=== PATIENT | female | born 1960 | race American Indian/Alaskan Native ===

== ENCOUNTER 2021-02-09 11:20 | Emergency (ER) | payer MEDICARE, MEDICAID, SELFPAY ==
--- NOTE | ~2021-02-09 | XR_ITS ---
EXAMINATION: XR LUMBOSACRAL SPINE CLINICAL INFORMATION: Low back pain status post fall COMPARISON: None TECHNIQUE: Three views of the lumbosacral spine. FINDINGS: The vertebral bodies and posterior elements are unremarkable. The disc spaces are preserved and the vertebral alignment is normal. The paraspinal soft tissues are normal. XR/XR lumbar spine 2-3V IMPRESSION: No evidence of an acute traumatic injury
[2021-02-09 12:24] VITALS: BP 195/100; PULSE 74; RESP 20; TEMP 37.2; O2SAT 98; BMI 30.2
--- NOTE | 2021-02-09 18:52 | ED.BACK ---
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 Patient reports that she came from [place] in beginning December in she ran out of her medications that she takes for her chronic back pain. Patient reports that she had slipped down the stairs about month ago. Denies any urinary or fecal incontinence. Denies any neurological symptoms. Patient reports that she called to make an appointment with PCP and is awaiting for her appointment. Patient takes tramadol 50 mg 3 times a day and Xanax 2 mg daily. Medications were verified with her. Patient brought her empty bottles. MD elicited complaint: back pain Pertinent past history: prior back pain ( for the last 20 years) Onset (ago): year(s) ( over 20 years ago) Timing: intermittent Severity: moderate Related Data Previous Rx's Medication Instructions Recorded cyclobenzaprine 7.5 mg tablet 7.5 mg PO BEDTIME #7 tab 02/09/21 diazepam 2 mg tablet (Valium) 2 mg PO DAILY PRN #7 tab 02/09/21 tramadol 50 mg tablet 50 mg PO DAILY #14 tab 02/09/21 Allergies Allergy/AdvReac Type Severity Reaction Status Date / Time No Known Allergies Allergy Verified 02/09/21 12:30 Review of Systems Review of Systems: Constitutional : No Weight loss, No Fever, No Chills, No Night Sweats, No Fatigue, No Malaise ENT/Mouth : No Hearing loss, No Ear Pain, No Nasal Congestion, No Sinus Pain, No Hoarseness, No sore throat, No Rhinorrhea, No Swallowing Difficulty Eyes: No Eye Pain, No Swelling, No Redness, No Foreign Body, No Discharge, No Vision Changes Cardiovascular : No Chest Pain, No SOB, No Dyspnea on Exertion, No Orthopnea, No Edema, No Palpitations Respiratory : No Cough, No Sputum, No Wheezing, No Smoke Exposure, No Dyspnea Gastrointestinal : No Nausea, No Vomiting, No Diarrhea, No Constipation, No abdominal Pain, No Hematochezia, No Melena Genitourinary : no irregular bleeding, No Dysuria, No Urinary Frequency, No Hematuria, No Urinary Incontinence, No Urgency, No Flank Pain, No Urinary Flow Changes, No Hesitancy Musculoskeletal : No joint pain, back pain, No Myalgias, No Joint Swelling Skin : No Skin Lesions, No rash Neuro : No Weakness, No Numbness, No Paresthesias, No Loss of Consciousness, No Dizziness, No Headache Psych : No Anxiety/Panic, No Depression, No SI/HI/AH/VH, No Social Issues, Yes all other systems are reviewed and are negative PMFSH Past Medical History Medical History (Updated 02/09/21 @ 20:11 by Jana Viveros, [facility]) Angina pectoris Anxiety Back pain High cholesterol HTN (hypertension) Social History Social History Advance Directives: No Advance Directives Information Provided: Yes Patient : No Physical Exam Vital Signs: Vital Signs: Last Vital Signs Temp 98.4 F 02/09/21 20:12 Pulse 72 02/09/21 20:12 Resp 16 02/09/21 20:12 BP 165/83 H 02/09/21 20:12 Pulse Ox 98 02/09/21 20:12 BMI result Body Mass Index 30.2 Const: General: healthy appearing, no acute distress and well developed Nutritional Appearance: well nourished Orientation/consciousness: patient oriented x3 HENMT: Head: Yes normal to inspection, Yes normocephalic and Yes atraumatic Face and sinus: Yes normal facial exam Mouth: Normal oral and palatal mucosa present Throat: Yes posterior oropharynx normal, Yes tonsils normal and Yes uvula midline Eyes: General: appearance normal, both eyes and all related structures Neck: Neck: Yes normal visual inspection, Yes full ROM and Yes trachea midline Thyroid: Thyroid normal Resp: Effort & Inspection: normal respiratory effort, able to speak in complete sentences, no tracheal deviation and symmetric chest movement Auscultation: clear to auscultation bilaterally Cardio: Jugular venous distension: no JVD Rate: regular rate Heart sounds: S1 normal heart sound present, S2 normal heart sound present, no gallops and no murmurs GI: Inspection: Yes normal to inspection and No distended Palpation (GI): Soft to palpation, not firm, nontender and No hepatosplenomegaly present Auscultation: normal bowel sounds : General: Yes no CVA tenderness Back/Spine/Pelvis: Back: no CVA tenderness Cervical Spine: normal cervical lordosis Thoracic/Lumbar Spine: thoracic and lumbar spine normal to inspection Pelvis: sciatic notch tenderness Sacroiliac joints: bilaterally Skin: General skin exam: elasticity normal, turgor normal and dry skin Neuro: General: patient oriented x3 Psych: Appearance: grossly normal Mental Status: mental status grossly normal Speech and movement: Normal speech and movement present Affect: normal affect Attitude: cooperative Thought process: Normal thought process present Thought content: Normal thought content present Insight: Good insight present (Psych) Judgement: Good judgement present (Psych) Course Course Course Narrative: 60-year-old female with past medical history of hyperlipidemia, hypertension, severe anxiety, chronic back pain for 20 years. Recent fall over a month ago with no worsening pain, however patient is taking large amount of medication till just yesterday when she ran out. Unable to get an appointment with her PCP. Patient is taking tramadol 50 mg 3 times a day and Xanax 2 mg daily. Patient reports she has also severe anxiety has try to wean herself off of Xanax with and was unable to. Patient just moved here from [place] in beginning of December. Patient denies any urinary or fecal incontinence. No paresthesia. Positive tenderness to SI joint areas. Will do x-ray of lumbar and spine. Will give her tramadol. discussed with patient that the dose of Xanax is too high and I will not going to be given her script for that. However I will be happy to give her script for Valium. Patient is agreeable she states that she took Valium in the past. Reevaluation(s) Reevaluation #1: patient reports that she is feeling better after taking tramadol. x-ray without any acute finding. I will send patient home with script for Valium, cyclobenzaprine and tramadol. Patient is agreeable to this plan MDM - Back Pain/Injury Imaging Data lumbar and spinal x-ray: Attestation: I personally reviewed and interpreted this imaging study as follows: Radiologist's impression: FINDINGS: The vertebral bodies and posterior elements are unremarkable. The disc spaces are preserved and the vertebral alignment is normal. The paraspinal soft tissues are normal. XR/XR lumbar spine 2-3V IMPRESSION: No evidence of an acute traumatic injury Discharge Plan Discharge Clinical Impression: Strain of lumbar region Qualifiers: Encounter type: initial encounter Qualified Code(s): S39.012A - Strain of muscle, fascia and tendon of lower back, initial encounter Sciatica Qualifiers: Laterality: bilateral Qualified Code(s): M54.31 - Sciatica, right side Chronic back pain Qualifiers: Back pain location: low back pain Back pain laterality: bilateral Sciatica presence: unspecified whether sciatica present Qualified Code(s): M54.50 - Low back pain, unspecified Patient Disposition: Home, Self-Care Instructions: Chronic Pain (ED), Chronic Back Pain (DC) Additional Instructions: Usted fue visto aqu? hoy por dolor lumbar. Tus s?ntomas son cr?nicos. Te quedaste sin tus medicamentos. No se puede completar el script para Xanax, sin embargo, le daremos el script para Valium. [place] Valium 2 mg seg?n sea necesario por la ma?cholo. Puede irma ciclobenzaprina, que es un relajante muscular todas las noches, seg?n sea necesario. Le enviar? un roopa?n para tramadol, puede tomarlo al mediod?a seg?n sea necesario. Mili un seguimiento con nath proveedor de atenci?n primaria. Es posible que necesite fisioterapia. Puede hacer un seguimiento con [facility] [phone] Prescriptions: New diazepam [Valium] 2 mg tablet 2 mg PO DAILY PRN (Reason: anxiety) Qty: 7 RF: 0 tramadol 50 mg tablet 50 mg PO DAILY Qty: 14 RF: 0 cyclobenzaprine 7.5 mg tablet 7.5 mg PO BEDTIME Qty: 7 RF: 0 Interventions: ED Discharge Assessment Last Done: 02/09/21 20:02 Discharge Date/Time: 02/09/21 20:17 Print Language: Slovak
[2021-02-09] MEDS: traMADoL HCL 50 MG TABLET PO (19:35)
[2021-02-09 20:12] VITALS: BP 165/83; PULSE 72; RESP 16; TEMP 36.9; O2SAT 98
== END 2021-02-09 20:17 | disposition home or self-care (01) ==
PROVIDERS: Emergency Provider Emergency Medicine Emergency Medical Services
DX: S39.012A Strain of muscle, fascia and tendon of lower back, initial encounter (principal); M54.31 Sciatica, right side; M54.32 Sciatica, left side; I10 Essential (primary) hypertension; Z79.891 Long term (current) use of opiate analgesic; Z79.899 Other long term (current) drug therapy; W10.9XXA Fall (on) (from) unspecified stairs and steps, initial encounter; Y93.9 Activity, unspecified; Y92.9 Unspecified place or not applicable; Y99.9 Unspecified external cause status
CPT/HCPCS: 72100; 99283

== ENCOUNTER 2021-04-19 14:37 | Outpatient (REF) | payer MEDICARE, MEDICAID, SELFPAY ==
--- NOTE | ~2021-04-19 | MR_ITS ---
EXAMINATION: MR LUMBAR SPINE WITHOUT CONTRAST CLINICAL INFORMATION: Low back pain. COMPARISON: Lumbar spine radiographs 02/01/2021. TECHNIQUE: MRI of the lumbar spine was obtained using routine sequences without contrast. FINDINGS: Alignment is normal. Vertebral heights are preserved. No acute bone marrow signal changes. There is disc desiccation at multiple levels without substantial loss of intervertebral disc height. The tip of the conus medullaris is located at T12. No mass effect on the conus. Visualized distal cord signal intensity is normal. At T12-L1 there is a left central extrusion with superior and inferior subligamentous extension of extruded disc centrally causing indentation of the thecal sac. No canal stenosis. No mass effect on the traversing or foraminal nerve roots. At L1-L2 there is a right central extrusion with 0.5 cm superior subligamentous extension of extruded disc material causing indentation of the ventral thecal sac. No canal stenosis. No mass effect on the traversing or foraminal nerve roots. At L2-L3 is a annular contour is normal. No canal or neuroforaminal compromise. At L3-L4 there is a slightly bulging disc. No canal stenosis. No mass effect on the traversing or foraminal nerve roots. At L4-L5 there is a central annular fissure associated with a bulging disc. No canal stenosis. No mass effect on the traversing or foraminal nerve roots. At L5-S1 there is a slightly bulging disc. Bilateral facet degenerative change. No canal stenosis. Partial effacement of perineural fat with no more than mild mass effect on the left L5 foraminal nerve root. Limited visualization of the retroperitoneal anatomy reveals no abnormal finding. Psoas and paraspinal muscle groups are symmetric. MR/MR lumbar spine wo con IMPRESSION: There is disc degeneration at multiple levels within the lumbar spine. There are disc extrusions at T12-L1 and L1-L2 as described above. No canal stenosis. A bulging disc in conjunction with facet degenerative change at L5-S1 causes no more than mild mass effect on the left L5 foraminal nerve root. Otherwise no substantial mass effect on the traversing or foraminal nerve roots elsewhere within the [id number] of this examination.
== END 2021-04-19 14:38 | disposition home or self-care (01) ==
LOC: HO.MRI 14:37
PROVIDERS: PCP Nurse Practitioner Primary Care; Visit Provider Nurse Practitioner Primary Care
DX: M54.50 Low back pain, unspecified (principal); R29.898 Other symptoms and signs involving the musculoskeletal system
CPT/HCPCS: 72148

== ENCOUNTER → 2021-09-15 10:38 | Outpatient (BNVA) | payer MEDICARE, MEDICAID, SELFPAY | PROVIDERS: PCP Nurse Practitioner Primary Care; Referring Provider Nurse Practitioner Primary Care; Visit Provider Nurse Practitioner | DX: K21.9 Gastro-esophageal reflux disease without esophagitis (principal); R10.10 Upper abdominal pain, unspecified | CPT/HCPCS: 99202; 99212 ==

== ENCOUNTER 2021-10-13 14:46 | Outpatient (REF) | payer MEDICARE, MEDICAID, SELFPAY ==
[2021-10-13 15:12] LABS: MANUAL DIFF FLAG NO
[2021-10-13 15:33] LABS: Basophils Absolute Auto 0.1 X10*3/uL (0.0-0.2); Basophils Percent Auto 0.8 % (0-2); Eosinophils Absolute Auto 0.1 X10*3/uL (0.0-0.4); Eosinophils Percent Auto 1.9 % (0-4); Hematocrit 41.4 % (37.0-47.0); Hemoglobin 13.5 g/dl (12.0-16.0); Imm Gran Abs Auto 0.03 X10*3/uL (0.00-0.03); Imm Gran Pct Auto 0.4 % (0.0-0.4); Lymphocytes Absolute Auto 2.5 X10*3/uL (1.2-4.9); Lymphocytes Percent Auto 33.9 % (20-40); Mean Corpuscular HGB Conc 32.6 g/dl (31.0-35.0); Mean Corpuscular Volume 85.9 fL (80.0-98.0); Mean Platelet Volume 12.4 fL (9.4-12.3); Monocytes Absolute Auto 0.6 X10*3/uL (0.1-1.2); Monocytes Percent Auto 7.5 % (2-11); Neutrophils Absolute Auto 4.1 x10*3/uL (2.0-8.3); Neutrophils Percent Auto 55.5 % (45-73); Platelet Count 224 X10*3/uL (160-400); Red Blood Count 4.82 X10*6/uL (4.20-5.50); Red Cell Distribution Width 12.5 % (11.0-16.0); White Blood Count 7.5 X10*3/uL (4.8-10.8)
[2021-10-13 15:58] LABS: Alanine Aminotransferase 35 U/L (0-31); Albumin Level 4.2 g/dL (3.5-5.0); Alkaline Phosphatase 101 U/L (39-117); Anion Gap 15 (12-20); Aspartate Amino Transferase 27 U/L (5-31); Bilirubin Total 0.3 mg/dL (0.0-1.0); Blood Urea Nitrogen 8 mg/dL (9-16); Calcium 9.6 mg/dL (8.4-10.2); Carbon Dioxide 26 mmol/L (22-29); Chloride 105 mmol/L (96-108); Estimated Glomerular Filt Rate > 60; Glucose Random 95 mg/dL (60-115); Potassium 4.2 mmol/L (3.3-5.1); Sodium 142 mmol/L (135-145); Total Protein 7.5 g/dL (6.5-8.0)
== END 2021-10-13 14:47 | disposition home or self-care (01) ==
LOC: HO.LAB 14:46
PROVIDERS: PCP Nurse Practitioner Primary Care; Visit Provider Nurse Practitioner
DX: R10.10 Upper abdominal pain, unspecified (principal); K21.9 Gastro-esophageal reflux disease without esophagitis
CPT/HCPCS: 36415; 80053; 85025; 99212

== ENCOUNTER 2021-10-14 | Outpatient (REF) | payer MEDICARE, MEDICAID, SELFPAY | END 2021-10-14 00:01 | disposition home or self-care (01) | LOC: HO.LNP | PROVIDERS: Visit Provider Nurse Practitioner | DX: R10.10 Upper abdominal pain, unspecified (principal); K21.9 Gastro-esophageal reflux disease without esophagitis | CPT/HCPCS: 87338 ==

== ENCOUNTER → 2021-12-15 15:53 | Outpatient (BNVA) | payer MEDICARE, MEDICAID, SELFPAY | PROVIDERS: PCP Nurse Practitioner Primary Care; Visit Provider Nurse Practitioner | DX: K21.9 Gastro-esophageal reflux disease without esophagitis (principal); R10.10 Upper abdominal pain, unspecified | CPT/HCPCS: 99212 ==

== ENCOUNTER 2022-01-26 08:54 | Outpatient (REF) | payer MEDICARE, MEDICAID, SELFPAY ==
--- NOTE | ~2022-01-26 | XR_ITS ---
EXAMINATION: XR ABDOMEN WITH DECUBITUS VIEWS CLINICAL INDICATION: Gastroesophageal reflux disease without esophagitis. COMPARISON: None. TECHNIQUE: 4 view abdominal series. FINDINGS: The bowel gas pattern is normal with no evidence of ileus or obstruction. No unusual soft tissue calcifications are noted. Psoas margins are intact. No acute fracture or diastases of the pelvis was identified. 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 No significant sacroiliac joint abnormalities appreciated. The hip joint spaces appear maintained. XR/XR abdomen w decubitus IMPRESSION: No evidence of ileus or obstruction. No significant abnormality appreciated.
--- NOTE | ~2022-01-26 | US_ITS ---
EXAMINATION: US ABDOMEN COMPLETE CLINICAL INFORMATION: Upper abdominal pain. COMPARISON: X-ray abdomen same date. TECHNIQUE: Real-time imaging of the abdominal viscera. FINDINGS: PANCREAS: Visualized portions of the pancreas are unremarkable. The pancreatic tail is obscured by bowel gas. Great duct measures 2 mm which is within normal limits of caliber. ABDOMINAL AORTA: The proximal, mid, and distal segments are normal in caliber. INFERIOR VENA CAVA: Visualized portions are normal. LIVER: Liver is mildly enlarged measuring 17.8 cm in span. The liver contour is normal. There is diffuse increased liver parenchymal echogenicity, consistent with hepatic steatosis. No focal hepatic lesion. There is no intrahepatic biliary duct dilatation seen. GALLBLADDER: Normal. The gallbladder is physiologically distended without evidence of stones, sludge, polyps, wall thickening or pericholecystic fluid. COMMON BILE DUCT: Normal in caliber measuring 0.3 cm in diameter. RIGHT KIDNEY: Possible trace caliectasis. No jania hydronephrosis. No renal calculi or focal parenchymal lesions. The kidney measures 11.9 cm in maximum dimension. LEFT KIDNEY: Normal. No hydronephrosis. No renal calculi or focal parenchymal lesions. The kidney measures 11.6 cm in maximum dimension. SPLEEN: Normal. The spleen measures 11.6 cm in maximum dimension. FREE FLUID: None. US/US abdomen complete IMPRESSION: 1. Mild hepatomegaly and hepatic steatosis. 2. Possible trace caliectasis in the right kidney without jania hydronephrosis.
== END 2022-01-26 08:55 | disposition home or self-care (01) ==
LOC: HO.US 08:54
PROVIDERS: Visit Provider Nurse Practitioner
DX: R10.10 Upper abdominal pain, unspecified (principal); K21.9 Gastro-esophageal reflux disease without esophagitis
CPT/HCPCS: 74021; 76700

== ENCOUNTER 2022-03-09 08:08 | Outpatient (REF) | payer MEDICARE, MEDICAID, SELFPAY ==
--- NOTE | ~2022-03-09 | FL_ITS ---
EXAMINATION: FL UPPER GI SERIES AND SMALL BOWEL SERIES CLINICAL INFORMATION: K21.9 - Gastro-esophageal reflux disease without esophagitis. Abdominal pain during meals. COMPARISON: None TECHNIQUE: Upper GI series and small bowel follow-through and are performed using fluoroscopic evaluation in addition to multiple fluoroscopic spot views and overhead images. The patient is imaged both upright and prone and using both thick and thin barium sulfate along with effervescent granules. Barium pill challenge also performed. Fluoroscopy time: 1.7 minutes DAP: 23.587 Gycm2 Fluoroscopic spot images: 23 FINDINGS: Preliminary sped teacher films show no gaseous dilatation of bowel or abnormal collections of gas. The esophagus has no obstruction, stricture, or ulceration. There is small sliding hiatal hernia seen during the prone Valsalva maneuver approximately one thoracic vertebral body in height. No gastroesophageal reflux demonstrated. Barium pill rapidly passed from mouth to stomach without delay. The stomach shows no thickened folds or ulcer crater or outlet obstruction. The duodenal bulb is pliable and without ulcer crater or scarring. The post bulbar duodenum is unremarkable. Contrast is followed through the small bowel and reaches the colon within 60 minutes. There is no small bowel dilatation, angulated or tethered loops, or abnormal thickening of small bowel folds. There are no fixed or rigid segments of small bowel on fluoroscopic exam with compression. The terminal ileum appears normal. FL/FL upper GI small bowel IMPRESSION: -Small sliding hiatal hernia during prone Valsalva maneuver. No gastroesophageal reflux -No ulceration or scarring. -Unremarkable small bowel series.
--- NOTE | ~2022-03-09 | XR_ITS ---
EXAMINATION: XR THORACOLUMBAR SPINE CLINICAL INFORMATION: Gastroesophageal reflux. COMPARISON: CT soft tissues of the neck 07/07/2021. TECHNIQUE: 2 views of the thoracic spine. FINDINGS: No acute compression deformity or subluxation. Small multilevel anterior osteophytes along the included portions of the cervical and thoracic spine with mild disc height loss. Posterior elements appear within normal limits. No significant paraspinal soft tissue abnormality. XR/XR thoracic spine 2V IMPRESSION: 1. No acute compression deformity or subluxation. 2. Mild thoracic spondylosis. Of note, this examination is not ideal for the evaluation of gastroesophageal reflux, for which correlation with upper GI fluoroscopic small bowel series performed on same day and dictated separately is recommended.
== END 2022-03-09 08:09 | disposition home or self-care (01) ==
LOC: HO.XRAY 08:08
PROVIDERS: PCP Nurse Practitioner Primary Care; Visit Provider Nurse Practitioner
DX: R10.10 Upper abdominal pain, unspecified (principal); K21.9 Gastro-esophageal reflux disease without esophagitis
CPT/HCPCS: 72070; 74240; 74248

== ENCOUNTER → 2022-06-08 11:01 | Outpatient (BNVA) | payer MEDICARE, MEDICAID, SELFPAY | PROVIDERS: PCP Nurse Practitioner Primary Care; Referring Provider Nurse Practitioner Primary Care; Visit Provider Internal Medicine Cardiovascular Disease | DX: R07.89 Other chest pain (principal) | CPT/HCPCS: 93005; 99202 ==

== ENCOUNTER → 2022-07-01 12:27 | Outpatient (REF) | payer MEDICARE, MEDICAID, SELFPAY ==
--- NOTE | 2022-07-01 12:34 | CA_ITS ---
Transthoracic Echocardiogram Patient (Last, First, Middle): Rosalina Correia E Gender: Female Date of : 1960 Age: 61 Procedure Date: 07/01/2022 Procedure Type: Transthoracic Echocardiogram Location: OP Height: 154.94 cm Weight: 71.67 kg BSA: 1.71 m2 Heart Rate: bpm BP: 122 / 60 mmHg Dispensary Technician: Referring MD: Santos Bravo MD Symptoms: R07.89 - Other chest pain Study Quality: Good ECG Rhythm: Sinus Conclusions: - Normal left ventricular size and systolic function. There is mildly increased left ventricular wall thickness. The visually estimated ejection fraction is between 55-60%. - Normal right ventricular cavity size and systolic function. - There is no evidence of pericardial effusion. Findings Left Ventricle Normal left ventricular size and systolic function. There is mildly increased left ventricular wall thickness. The visually estimated ejection fraction is between 55-60%. There is no evidence of regional wall motion abnormalities. Diastolic function is normal for age. Right Ventricle Normal right ventricular cavity size and systolic function. Atria The left atrium is normal in size. Aortic Valve Normal aortic valve structure and function. There is no aortic valve stenosis. There is no aortic valve regurgitation. Mitral Valve Normal mitral valve structure and function. There is no mitral valve regurgitation. There is no mitral valve stenosis. Pulmonic Valve Normal pulmonic valve structure and function. Tricuspid Valve Normal tricuspid valve structure and function. There is trace tricuspid valve regurgitation. Normal right atrial pressure. There is no evidence of pulmonary hypertension. Great Vessels All visible segments of the aorta are normal in size. The visualized portions of the pulmonary artery and branches are normal. Venous The inferior vena cava is normal in size and collapses greater than 50% with inspiration. Pericardium/Pleural There is no evidence of pericardial effusion. Prior Study Comparison No prior study available for comparison. Measurements 2D Linear Measurements IVSd: 0.97 0.6-0.9/0.6-1.0 cm LVIDd: 4.23 3.9-5.3/4.2-5.9 cm LVIDd Index: 2.47 2.4-3.2/2.2-3.1 cm/m2 LVIDs: 2.63 2.0-3.6 cm LVPWd: 1.00 0.7-1.1 cm Ao Root: 2.90 2.1-3.5 cm LA Diam: 3.80 2.7-3.8/3.0-4.0 cm LAIDs Index: 2.22 1.5-2.3 cm/m2 LV Mass: 169.03 67-162/88-224 g LV Mass Index: 98.85 43-95/49-115 g/m2 LVOT Diam: 2.20 3.0+(-)1.3 cm Mitral Valve MV Pk E: 0.50 MV PK A: 0.77 MV Decel Time: 174.00 E/A: 0.60 E'Lateral: 8.49 E'Medial: 6.85 E/E' Med: 7.30 E/E' Lat: 5.90 PHT: 51.00 MVA PHT: 4.31 Decel Dickey: 2.88 Aortic Valve AoV Pk Link: 1.51 AoV Mn Link: 0.99 AoV VTI: 0.28 AoV Pk Grad: 9.00 Aov Mn Grad: 5.00 FROILAN Cont.VTI: 2.99 LVOT LVOT Pk Link: 1.11 LVOT Mn Link: 0.62 LVOT VTI: 0.22 LVOT Pk Grad: 5.00 LVOT Mn Grad: 2.00 LVOT Diam: 2.20 LVOT Area: 3.80 Diastolic Function MV Pk E: 0.50 MV Pk A: 0.77 E/A: 0.60 E'Medial: 6.85 E/E' Med: 7.30 E' Laterial: 8.49 E/E' Lat: 5.90 Right Ventricle TAPSE (mm): 20.00 TVS' Link: 10.00 Tricuspid Valve TR Pk Link: 2.44 TR Pk Grad: 24.00 RA Press: 3.00 RVSP: 27.00 Great Vessels Aorta Ao Root-2D: 2.90 2.0-3.7 cm Ao Asc: 2.50 2.1-3.4 cm Ao Arch: 2.70 Pulmonary Valve PV Pk Link: 0.92 Peak PV Grad: 3.00 Updated in Other Vendor System with Status of Final Lambert Corado MD electronically signed on 07/03/2022 5:44:19 PM with status of Final
== END ==
LOC: HO.CARD 12:27
PROVIDERS: PCP Nurse Practitioner Primary Care; Visit Provider Internal Medicine Cardiovascular Disease
DX: R07.89 Other chest pain (principal)
CPT/HCPCS: 93306

== ENCOUNTER → 2022-07-15 10:09 | Outpatient (REF) | payer MEDICARE, MEDICAID, SELFPAY ==
--- NOTE | 2022-07-15 10:12 | CA_ITS ---
Acquisition Time: 2022-07-15 11:20:49 Total Exercise Time: 00:04:42 Test Indications: CP Medications: SEE H Protocol: NAOMIE Max HR: 155 BPM 98% of Pred: 158 BPM Max BP: 140/084 mmHG Max Work Load: 6.6 METS Exercise stress test with exercise 4 min 42 sec of Naomie protocol, achieving 98% MPHR, with mild sob and fatigue, requesting to stop, no chest discomfort, without arrythmia, with normotensive response to exercise, without EKG changes meeting criteria for ischemia. Echo images obtained by tech at rest and immediately post peak exercise. Definity contrast used. Test reviewed with Dr Bravo. Referred By: Santos Bravo Overread By: GALDINO HARRINGTON
== END ==
LOC: HO.CARD 10:09
PROVIDERS: PCP Nurse Practitioner Primary Care; Visit Provider Internal Medicine Cardiovascular Disease
DX: R07.89 Other chest pain (principal)
CPT/HCPCS: 93350; Q9957

== ENCOUNTER 2022-11-04 08:29 | Outpatient (REF) | payer MEDICARE, MEDICAID, SELFPAY ==
--- NOTE | ~2022-11-04 | MM_ITS ---
EXAMINATION: MM SCREENING DIGITAL BREAST TOMOSYNTHESIS, BILATERAL CLINICAL INFORMATION: Screening. Asymptomatic. COMPARISON: Mammography: There are no prior studies available for comparison. TECHNIQUE: Digital breast tomosynthesis is performed in both the craniocaudal and mediolateral oblique views along with computer-aided detection (CAD). Synthesized 2D images are generated from the tomosynthesis. FINDINGS: There are scattered areas of fibroglandular density (ACR BI-RADS breast composition Category b). There are no significant masses, abnormal calcifications, or other abnormalities. There is long-standing left nipple inversion which is benign. MM/MM tomosynthesis screening BI IMPRESSION: No mammographic evidence of malignancy. ASSESSMENT: BI-RADS BI-RADS 1 - Negative RECOMMENDATION: Routine annual mammography screening. 1 year F/U This examination should not preclude the clinical evaluation of a suspicious palpable abnormality. This patient's information was entered into a reminder system with a target due date for their next mammogram.
== END 2022-11-04 08:30 | disposition home or self-care (01) ==
LOC: HO.MAMMO 08:29
PROVIDERS: PCP Nurse Practitioner Primary Care; Visit Provider Nurse Practitioner Primary Care
DX: Z12.31 Encounter for screening mammogram for malignant neoplasm of breast (principal)
CPT/HCPCS: 77063; 77067

== ENCOUNTER → 2022-11-04 08:30 | Outpatient (BNV) | payer MEDICARE, MEDICAID, SELFPAY | PROVIDERS: PCP Nurse Practitioner Primary Care; Visit Provider Radiology Diagnostic Radiology | DX: Z12.31 Encounter for screening mammogram for malignant neoplasm of breast (principal) | CPT/HCPCS: 77063; 77067 ==

== ENCOUNTER 2022-11-14 23:52 | Emergency (ER) | payer MEDICARE, MEDICAID, SELFPAY ==
--- NOTE | ~2022-11-14 | XR_ITS ---
EXAMINATION: XR CHEST CLINICAL INFORMATION: Chest pain. COMPARISON: None available. TECHNIQUE: 2 views of the chest were obtained. FINDINGS: The cardiomediastinal silhouette is normal. There is no focal lung consolidation or pleural effusion. The bony structures and soft tissues are unremarkable. XR/XR chest 2V IMPRESSION: No active cardiopulmonary disease.
--- NOTE | 2022-11-15 | ECG_ITS ---
Test Reason : CHEST PAIN Blood Pressure : / mmHG Vent. Rate : 061 BPM Atrial Rate : 061 BPM P-R Int : 148 ms QRS Dur : 080 ms QT Int : 406 ms P-R-T Axes : 057 021 052 degrees QTc Int : 408 ms Normal sinus rhythm Possible Left atrial enlargement Minimal voltage criteria for LVH, may be normal variant ( Sokolow-Wilburn ) RSR' or QR pattern in V1 suggests right ventricular conduction delay Borderline ECG No previous ECGs available Referred By: Generic ED Physician Electronically Signed By:MICHELLE PACK
[2022-11-15 00:05] VITALS: BP 173/75; PULSE 62; RESP 16; TEMP 36.6; O2SAT 97
[2022-11-15 00:15] VITALS: BP 173/75; BP 228/94; PULSE 59; PULSE 66; RESP 14; O2SAT 96; O2SAT 98; BMI 29.6
[2022-11-15 00:25] LABS: Basophils Absolute Auto 0.1 X10*3/uL (0.0-0.2); Basophils Percent Auto 0.7 % (0-2); Eosinophils Absolute Auto 0.2 X10*3/uL (0.0-0.4); Eosinophils Percent Auto 2.5 % (0-4); Hemoglobin 13.3 g/dl (12.0-16.0); Imm Gran Abs Auto 0.02 X10*3/uL (0.00-0.03); Imm Gran Pct Auto 0.2 % (0.0-0.4); Lymphocytes Absolute Auto 3.2 X10*3/uL (1.2-4.9); Lymphocytes Percent Auto 36.5 % (20-40); MANUAL DIFF FLAG NO; Mean Corpuscular HGB Conc 32.4 g/dl (31.0-35.0); Mean Corpuscular Hemoglobin 28.3 pg (27.0-33.0); Mean Corpuscular Volume 87.2 fL (80.0-98.0); Monocytes Absolute Auto 0.6 X10*3/uL (0.1-1.2); Monocytes Percent Auto 7.2 % (2-11); Neutrophils Absolute Auto 4.7 x10*3/uL (2.0-8.3); Neutrophils Percent Auto 52.9 % (45-73); Platelet Count 223 X10*3/uL (160-400); White Blood Count 8.8 X10*3/uL (4.8-10.8)
[2022-11-15 00:31] VITALS: PULSE 82
--- NOTE | 2022-11-15 00:31 | MHC.EDTECH ---
This Tech assumed care of this PT upon arrival. Pt changed into a hospital gown, Pt placed on cardiac montior EKG done and handed to a provider. Labs sent for processing
--- NOTE | 2022-11-15 00:33 | ED_ITS ---
HPI - Chest Pain General Chief Complaint: Chest Pain Stated Complaint: cp Time Seen by Provider: 11/15/22 00:32 Source: patient and family Mode of arrival: EMS Limitations: no limitations History of Present Illness HPI narrative: 61-year-old female presents with chest pain. She describes the pain as a 7/10. Is pressure like in nature. The pain does not radiate. She does have bilateral arm electrical shock sensation. Is not associated with exertion. It is not associated with shortness of breath, lower extremity edema, orthopnea or PND. She has had similar symptoms in the past. She did try sublingual nitroglycerin which did help slightly. Patient has seen a tube test technician in the past but she is unaware of the results. She does have a history of hypertension she is not sure what medication she takes. She did take her blood pressure at home and she noted was moderate to significantly elevated. She does note that her symptoms appear to be worse with excessive emotional stress. She did feel stressed at this time that the symptoms started. Related Data Home Medications Medication Instructions Recorded Confirmed aspirin 81 mg tablet,delayed 81 mg PO DAILY 09/15/21 06/08/22 release alprazolam 1 mg tablet 1 mg PO TID PRN 10/13/21 06/08/22 estradiol 0.5 mg tablet 0.5 mg PO DAILY 10/13/21 06/08/22 isosorbide mononitrate 30 mg 30 mg PO DAILY 10/13/21 06/08/22 tablet,extended release 24 hr simvastatin 20 mg tablet 20 mg PO DAILY 10/13/21 06/08/22 tramadol 50 mg tablet 50 mg PO DAILY PRN 10/13/21 06/08/22 famotidine 40 mg tablet 40 mg PO BEDTIME 12/15/21 06/08/22 Previous Rx's Medication Instructions Recorded omeprazole 40 mg capsule,delayed 40 mg PO BID #60 caps 09/15/21 release Allergies Allergy/AdvReac Type Severity Reaction Status Date / Time No Known Allergies Allergy Verified 06/08/22 11:37 Review of Systems 2 Review of Systems: CONSTITUTIONAL: Denies weight loss, fever and chills. HEENT: Denies changes in vision and hearing. RESPIRATORY: Denies SOB and cough. CV: Denies palpitations + CP. GI: Denies abdominal pain, nausea, vomiting and diarrhea. : Denies dysuria and urinary frequency. MSK: Denies myalgia and joint pain. SKIN: Denies rash and pruritus. NEUROLOGICAL: Denies headache and syncope. PSYCHIATRIC: Denies recent changes in mood. + anxiety and depression. All other ROS are negative unless in HPI [facility] Past Medical History Medical History Angina pectoris Anxiety Back pain High cholesterol HTN (hypertension) Family History Family History Father CVD (cardiovascular disease) Paternal Aunt CVD (cardiovascular disease) Diabetes Paternal Aunt Diabetes Social History Social History Smoked in Last 30 Days: No Use of substances other than those prescribed or required for medical reasons: No Advance Directives: No Advance Directives Information Provided: Yes Physical Exam 2 Vital Signs: Vital Signs: Last Vital Signs Temp 97.9 F 11/15/22 00:05 Pulse 70 11/15/22 01:15 Resp 15 11/15/22 01:15 BP 132/75 11/15/22 01:15 Pulse Ox 97 11/15/22 01:15 O2 Del Method Room Air 11/15/22 01:15 BMI result Body Mass Index 29.6 GEN: Well developed, no acute distress, alert, oriented HEENT: Normocephalic, atraumatic, normal external ears, nose appears normal, no oropharyngeal edema or exudates Eyes: Normal to appearance Neck: Supple, no lymphadenopathy Respiratory: Talks in complete sentences, no respiratory distress, clear to auscultation bilaterally Cardiovascular: Regular rate and rhythm, no murmurs rubs or gallops Abdomen: Soft, nontender, nondistended, no guarding, no rebound Back: No CVA tenderness Extremities: No clubbing cyanosis or edema Neurologic: No focal neurologic deficits, cranial nerves 2-12 intact, strength is 5/5 bilaterally Skin: No rash Chest wall: Reproducible sternal tenderness to palpation Course Course Course Narrative: Is 3:00 a.m.. The patient's workup is complete. Initial cardiac enzymes are very slightly elevated followed by 2nd set of cardiac enzymes which within normal. At this point, I doubt cardiac ischemia. Patient had an echocardiogram and a stress test which were unremarkable. Her symptoms are atypical. She has no ischemic changes on her EKG. I believe she can be discharged safely at this time to follow-up with Cardiology. Should her symptoms return, she is instructed to return for re-evaluation. Medications Administered Discontinued Medications Generic Name Dose Route Start Last Admin Trade Name Marc PRN Reason Stop Dose Admin Nitroglycerin 0.4 mg 11/15/22 00:42 11/15/22 01:03 Nitroglycerin 0.4 Mg Tab.Subl SUBLINGUAL 11/15/22 00:43 0.4 mg ONCE ONE Administration Medical Decision Making Medical Decision Making [facility] Narrative: This patient presents with chest pain, with symptoms suggestive of noncardiac chest pain. History with sternal pain, but atypical store. CAD risk factors (including age), recent negative stress test (<2 years).Exam without evidence of volume overload. EKG without signs of active ischemia. HEART score: will be calculated following cardiac enzymes. Given the timing of pain to ER presentation, plan to send single troponin // delta troponin to evaluate for NSTEMI. Presentation not consistent with acute PE , pneumothorax, thoracic arotic dissection, cardiac effusion or tamponade. Plan: labs, troponin x2, EKG, CXR, ASA already given, pain control, serial reassessment Differential Diagnosis Differential Diagnoses: The differential diagnosis associated with the presentation includes (see above) Admission/Observation Consideration of admission/observation: Escalation of care including admission/observation considered Lab Data [facility] Lab Attestation statement: I reviewed the patient's lab results. 11/15/22 00:19 11/15/22 00:19 Labs: Lab Results 11/15/22 11/15/22 Range/Units 00:19 02:18 WBC 8.8 (4.8-10.8) X10*3/uL RBC 4.70 (4.20-5.50) X10*6/uL Hgb 13.3 (12.0-16.0) g/dl Hct 41.0 (37.0-47.0) % MCV 87.2 (80.0-98.0) fL MCH 28.3 (27.0-33.0) pg MCHC 32.4 (31.0-35.0) g/dl RDW 12.0 (11.0-16.0) % Plt Count 223 (160-400) X10*3/uL MPV 13.0 H (9.4-12.3) fL Immature Gran % (Auto) 0.2 (0.0-0.4) % Neut % (Auto) 52.9 (45-73) % Lymph % (Auto) 36.5 (20-40) % Mckenzie % (Auto) 7.2 (2-11) % Eos % (Auto) 2.5 (0-4) % Baso % (Auto) 0.7 (0-2) % Lymph # (Auto) 3.2 (1.2-4.9) X10*3/uL Mckenzie # (Auto) 0.6 (0.1-1.2) X10*3/uL Eos # (Auto) 0.2 (0.0-0.4) X10*3/uL Baso # (Auto) 0.1 (0.0-0.2) X10*3/uL Abs Immat Gran (auto) 0.02 (0.00-0.03) X10*3/uL Absolute Neuts (auto) 4.7 (2.0-8.3) x10*3/uL Absolute Nucleated RBC 0.000 (0.0-0.012) X10*3/uL Nucleated RBC % (auto) 0.0 (0.0-0.2) /100WBC Sodium 141 (135-145) mmol/L Potassium 3.3 D (3.3-5.1) mmol/L Chloride 105 (96-108) mmol/L Carbon Dioxide 23 (22-29) mmol/L Anion Gap 16 (12-20) BUN 12 (9-16) mg/dL Creatinine 0.76 (0.5-1.4) mg/dL Estim Creat Clear Calc 69.2 Estimated GFR > 60 Random Glucose 147 H (60-115) mg/dL Calcium 9.8 (8.4-10.2) mg/dL Troponin I High Sens 17.8 H 16.4 (<3.5-17.0) ng/L Independent Interpretation I performed an independent interpretation of an: EKG (Normal sinus rhythm heart rate 61, no acute ST elevations depressions, normal intervals, possible LVH) and Plain X-Ray (Chest: NAD) Radiology Impression Discussion of test interpretation with radiology: I have reviewed the radiologist's reading. Radiologist Impression: US/US abdomen limited IMPRESSION: Unremarkable examination. Dictated By: Reno Mclaughlin MD Signed By: <Electronically signed by Reno Mclaughlin MD in OV> 11/14/222124 Independent Historian Clinical information obtained from an independent historian. History obtained from or confirmed by: Other (son) External Record Review External record reviewed: Office record Patient was seen by Cardiology on June 08 of this year. She was diagnosed with atypical chest pain. They had recommended an echocardiogram Conclusion : Stress echo is negative for ischemia at HR and workload achieved. Conclusions: - Normal left ventricular size and systolic function. There is mildly increased left ventricular wall thickness. The visually estimated ejection fraction is between 55-60%. - Normal right ventricular cavity size and systolic function. - There is no evidence of pericardial effusion. Prescription Management I considered prescription management with: Pain Medication Chronic Conditions Patient?s care impacted by: Hypertension Discharge Plan Discharge Clinical Impression: Chest pain Patient Disposition: Home, Self-Care Instructions: Chest Pain (DC) Prescriptions: No Action aspirin 81 mg tablet,delayed release (DR/EC) 81 mg PO DAILY omeprazole 40 mg capsule,delayed release(DR/EC) 40 mg PO BID Qty: 60 6RF alprazolam 1 mg tablet 1 mg PO TID PRN isosorbide mononitrate 30 mg tablet extended release 24 hr 30 mg PO DAILY simvastatin 20 mg tablet 20 mg PO DAILY famotidine 40 mg tablet 40 mg PO BEDTIME tramadol 50 mg tablet 50 mg PO DAILY PRN estradiol 0.5 mg tablet 0.5 mg PO DAILY Rx Instructions: off 5 days; repeat cycle Referrals: Santos Bravo MD [Physician] - 3 days Print Language: Macedonian
--- NOTE | 2022-11-15 00:33 | PC.NURSE ---
3x attempt for IV; unsuccessful. able to obtain lab work. ekg obtained. awaiting primary eval by ed provider. on monitor nsr 82 bpm. pt reports cp improved slightly after 1 nitro at home and 324 aspirin with ems. son at bedside. call felder within reach.
[2022-11-15 00:45] LABS: Anion Gap 16 (12-20); Blood Urea Nitrogen 12 mg/dL (9-16); Calcium 9.8 mg/dL (8.4-10.2); Carbon Dioxide 23 mmol/L (22-29); Chloride 105 mmol/L (96-108); Creatinine Clr Calc Pharmacy 69.2; Estimated Glomerular Filt Rate > 60; Glucose Random 147 mg/dL (60-115); Potassium 3.3 mmol/L (3.3-5.1); Sodium 141 mmol/L (135-145)
[2022-11-15 00:53] LABS: Troponin-I High Sensitivity 17.8 ng/L (<3.5-17.0)
[2022-11-15 01:00] VITALS: BP 187/80; PULSE 67; RESP 14; O2SAT 97
[2022-11-15] MEDS: Nitroglycerin 0.4 MG TAB.SUBL SUBLINGUAL (01:03)
--- NOTE | 2022-11-15 01:05 | PC.NURSE ---
pt return from xray. pt medicated per mar; 6 cp at this time.
[2022-11-15 01:15] VITALS: BP 132/75; PULSE 70; RESP 15; O2SAT 97
--- NOTE | 2022-11-15 01:18 | PC.NURSE ---
Addendum entered by Helen Mata 11/15/22 01:19: nsr on monitor 69 bpm. Original Note: pt reporting slight improvement in cp; vss. pt reported dizziness; Dr. Chu aware; water provided for pt per request.
[2022-11-15 02:43] LABS: Troponin-I High Sensitivity 16.4 ng/L (<3.5-17.0)
== END 2022-11-15 03:54 | disposition home or self-care (01) ==
PROVIDERS: Emergency Provider Emergency Medicine; PCP Nurse Practitioner Primary Care
DX: R07.9 Chest pain, unspecified (principal); I10 Essential (primary) hypertension; E78.5 Hyperlipidemia, unspecified; F41.9 Anxiety disorder, unspecified; Z79.82 Long term (current) use of aspirin; Z79.899 Other long term (current) drug therapy
CPT/HCPCS: 36415; 71046; 80048; 84484; 85025; 93005; 99284; 99285

== ENCOUNTER 2023-04-06 09:29 | Outpatient (REF) | payer MEDICARE, MEDICAID, SELFPAY ==
[2023-04-06 12:02] LABS: Anion Gap 12 (12-20); Blood Urea Nitrogen 10 mg/dL (9-16); Calcium 9.2 mg/dL (8.4-10.2); Carbon Dioxide 27 mmol/L (22-29); Chloride 106 mmol/L (96-108); Estimated Glomerular Filt Rate > 60; Glucose Random 96 mg/dL (60-115); Potassium 4.2 mmol/L (3.3-5.1); Sodium 141 mmol/L (135-145)
== END 2023-04-06 09:30 | disposition home or self-care (01) ==
LOC: HO.HHCL 09:29
PROVIDERS: Visit Provider Emergency Medicine
DX: I10 Essential (primary) hypertension (principal)
CPT/HCPCS: 36415; 80048

== ENCOUNTER 2023-08-31 10:34 | Outpatient (REF) | payer MEDICARE, MEDICAID, SELFPAY | END 2023-08-31 10:35 | disposition home or self-care (01) | LOC: HO.HOSX 10:34 | PROVIDERS: Visit Provider Physician Assistant | DX: Z13.89 Encounter for screening for other disorder (principal) ==

== ENCOUNTER 2023-09-01 07:39 | Outpatient (REF) | payer OTHER, SELFPAY ==
--- NOTE | ~2023-09-01 | XR_ITS ---
EXAMINATION: XR SHOULDER, RIGHT CLINICAL INFORMATION: Right shoulder pain. COMPARISON: None available. TECHNIQUE: Three views of the right shoulder. FINDINGS: Mild glenohumeral osteoarthritis is characterized primarily by marginal osteophytes at the glenoid. Mild acromioclavicular osteoarthritis. No fracture or malalignment. Soft tissues are unremarkable. XR/XR shoulder RT min 2V IMPRESSION: Mild glenohumeral and acromioclavicular osteoarthritis.
== END 2023-09-01 07:40 | disposition home or self-care (01) ==
LOC: HO.HOSX 07:39
PROVIDERS: PCP Nurse Practitioner Primary Care; Visit Provider Physician Assistant
DX: M75.101 Unspecified rotator cuff tear or rupture of right shoulder, not specified as traumatic (principal)
CPT/HCPCS: 20610; 73030; 99202; J1010

== ENCOUNTER 2023-09-01 07:39 | Outpatient (AMB) | payer OTHER, MEDICAID, SELFPAY ==
--- NOTE | 2023-09-01 08:36 | MHC.OFFVIS ---
Vital Signs 09/01/23 08:39 Height 5 ft 1 in Weight 179 lb BMI 33.8 Handedness Left Intake Visit Reasons: N/P Right shoulder pain Intake Note: Rosalina is a 62 year old left hand dominant female who presents today as a new patient for an evaluation of her right shoulder pain. Patient reports a few months ago she was dizzy but did not fall, her daughter stopped her fall, three days after she says her right shoulder started to ache. When she lifts her arm she feels like her nerves are being pulled. Her ROM is limited and due to this she has difficulty with daily activities such as showering, dressing and brushing her hair. She describes the pain as something breaking in her arm. She has tried Tylenol and ibuprofen and states she has zero relief from this. Denies numbness and tingling. French Translator Required: Yes French Translator Language: Player Manager Name: [id number] Allergies No Known Allergies Allergy (Verified 09/01/23 08:45) HPI HPI N/P Right shoulder pain : Details: 62-year-old left hand dominant female, who is Bolivian speaking, presents in the office today, as a new patient, for an evaluation of right shoulder pain. The [facility]23 with a complaint of increasing right shoulder pain present for 4-5 months, since 03/2023-04/2023.? ? While in the office today, the patient reports a few months ago she was dizzy but did not fall due to her daughter catching her. She states three days after that she began to have right shoulder pain. She states when she lifts her arm she feels, her ?nerves are being pulled?. She states this is affecting her ROM and her daily activities such as showering, dressing, and brushing her hair. She describes her pain as ?something is breaking? in the right upper extremity. She has tried and failed Tylenol and ibuprofen with no relief. She denies numbness or tingling. ? ? The patient reports she has ?a lot? of pain and this is affecting her sleep.? ? Patient denies a history of diabetes mellitus.? [facility] Medical History Angina pectoris Anxiety Back pain High cholesterol HTN (hypertension) Family History Father CVD (cardiovascular disease) Paternal Aunt CVD (cardiovascular disease) Diabetes Paternal Aunt Diabetes Social History (Updated 09/01/23 @ 08:47 by MAYELIN Figueredo) Alcohol intake: never Patient Tobacco Use Status: Never used Tobacco Current occupational status: disabled Current occupation: left handed Review of Systems Const All systems reviewed & are unremarkable except as noted in HPI and below Physical Exam Vital Signs: BMI result Body Mass Index 33.8 Const General: cooperative and no acute distress Orientation/consciousness: patient oriented x3 Resp Effort & Inspection: normal respiratory effort and able to speak in complete sentences Cardio Peripheral pulses: Peripheral pulses 2+ throughout Skin General skin exam: no rashes or lesions noted Neuro General: patient oriented x3 Extrem Other: Right shoulder: Forward flexion to 80 degrees. Abduction to 70 degrees. Able to perform external rotation but has some slight stiffness. Pain with cross-body reach. 3/5 strength with empty can. NVI.? Office Procedures Joint Injection/Drain Joint Injection/Drain Primary Site: right shoulder Prep: site was prepped using aseptic technique, ethochloride spray was applied and injection warnings given Injected: 80 mg of, DepoMedrol, with 8 mL of (2% plain lido ) and in the subcromial space Approach Used: posterolateral Procedure: The patient tolerated the procedure well, but had some pain with the injection and there was some relief with the local anesthesia Coding 44640 - Large joint Procedure code (CPT) selection complete Assessment & Plan Assessment & Plan (1) Painful arc syndrome of right shoulder: Code(s): M75.101 - Unspecified rotator cuff tear or rupture of right shoulder, not specified as traumatic Category: Medical Plan Ms. Anjel Perez is a 62-year-old left hand dominant female, who is Bolivian speaking, presents in the office today, as a new patient, for an evaluation of right shoulder pain. The patient [facility] with a complaint of increasing right shoulder pain present for 4-5 months, since 03/2023-04/2023.? ? While in the office today, the patient reports a few months ago she was dizzy but did not fall due to her daughter catching her. She states three days after that she began to have right shoulder pain. She states when she lifts her arm she feels, her ?nerves are being pulled?. She states this is affecting her ROM and her daily activities such as showering, dressing, and brushing her hair. She describes her pain as ?something is breaking? in the right upper extremity. She has tried and failed Tylenol and ibuprofen with no relief. She denies numbness or tingling. ?? ? The patient reports she has ?a lot? of pain and this is affecting her sleep.? ? Patient denies a history of diabetes mellitus.? ? The patient was offered a cortisone injection in the right shoulder with 80 mg of DepoMedrol. The patient was explained the risks, benefits, and alternatives to receiving this injection. After receiving consent for the injection, the patient had the procedure done while in the office today. The patient tolerated the procedure well with no complications.? ? The patient will be referred to physical therapy to work on ROM. Follow-up will be in six weeks, or sooner if needed. ? ? X-rays of the right shoulder which were obtained while in the office today and were reviewed by me, Mariely Lucas PA-C, revealed no acute fracture or dislocation. ? Orders: Orders PT Evaluation and Treatment Today M75.101 - Unspecified rotator cuff tear or rupture of right shoulder, not specified as traumatic XR shoulder RT min 2V Today M25.519 - Pain in unspecified shoulder Patient Instructions: Scribed by Jackie Mcbride medical billing coordinator, for Mariely Lucas PA-C on 09/01/2023 at 9:04 am, EST.? Coding Level of Care Code New Pt Level 3 (07543) Diagnoses Painful arc syndrome of right shoulder M75.101 CPT Codes Coding - 90669 Large joint: 30779 - Large joint ([id number])
[2023-09-01 08:39] VITALS: BMI 33.8
== END 2023-09-01 09:13 | disposition home or self-care (01) ==
PROVIDERS: PCP Nurse Practitioner Primary Care; Visit Provider Physician Assistant
DX: M75.101 Unspecified rotator cuff tear or rupture of right shoulder, not specified as traumatic (principal)
CPT/HCPCS: 20610; 99203

== ENCOUNTER 2023-10-12 10:01 | Outpatient (RCR) | payer OTHER, SELFPAY ==
--- NOTE | 2023-10-12 15:26 | MHC.PT.EP ---
[facility] [place] Office [place] Office [place] Office [address]ine[address] Bernardo [address] [phone] F: [phone] F: [phone] F: [phone] F: [phone] Physical Therapy Plan of Care Date of Evaluation: 10/12/23 Date of Surgery: N/A Diagnosis: Referring dx of painful arc syndrome of R shoulder Assessment: Pt is a 62 yo female referred to PT for painful arc syndrome of R shoulder. Her impairments include constant pain, limited range of motion in all planes, deficits in shoulder/periscapular strength, postural deficits, difficulty with functional tasks such as bathing, dressing, combing her hair, lifting, and reaching for meal prep/cleaning duties. PT is a good candidate for PT due to the modifiable nature of her impairments and general prognosis of her condition. Barriers to PT include the chronicity of her symptoms and comorbidities that may affect tissue healing. Pt will benefit from skilled PT to remediate deficits in strength/flexibility, postural re-education, STM for tissue extensibility, and functional task training for daily activities. Frequency and Duration: The patient will be seen 2x/wk for 4 weeks Short Term Goals: Pt will be independent with HEP to promote self-management of condition. Pt will increase shoulder flexion by 10deg to facilitate reaching for items in kitchen cabinets. Detention Goals: Pt will demonstrate a statistically significant difference in SPADI to promote ease in functional tasks. Pt will improve Apley scratch test to reach C7 to facilitate independence in bathing activities. Treatment Plan: Modalities to reduce pain, spasms and effusion. Manual therapy to restore motion and function. Therapeutic exercise to improve strength and flexibility. Neuromuscular re-education for posture and balance. Therapeutic activities to return to functional activities of daily living. Electronically signed by: Yadi Sewell, PT, DPT Please sign and return to therapist. Thank you for your referral.
--- NOTE | 2023-10-24 13:55 | MHC.PT.DC ---
[facility] [place] Office [place] Office [place] Office [address] [phone] F: [phone] F: [phone] F: [phone] F: [phone] Physical Therapy Discharge Report Diagnosis: Referring dx of painful arc syndrome of R shoulder Date of Surgery: N/A Date of Evaluation: 10/12/23 Date of Discharge: 10/24/23 Treatments to Date: 1 Cancellations to Date: 2 No Shows to Date: 0 Discharge Status: Visit Non-compliance Discharge Summary: The patient has no showed two consecutive appointments. Per [facility] Therapy attendance policy she is discharged for non-compliance. She only attended the evaluation. Electronically signed by: Yadi Sewell PT, DPT Please sign and return to therapist. Thank you for your referral.
== END 2023-10-24 13:55 | disposition home or self-care (01) ==
LOC: HO.PT 10:01
PROVIDERS: PCP Nurse Practitioner Primary Care; Visit Provider Physician Assistant
DX: M75.101 Unspecified rotator cuff tear or rupture of right shoulder, not specified as traumatic (principal)
CPT/HCPCS: 97161

== ENCOUNTER 2024-01-04 14:22 | Emergency (ER) | payer OTHER, SELFPAY ==
--- NOTE | ~2024-01-04 | CT_ITS ---
EXAMINATION: CT ANGIOGRAM OF THE CHEST WITH AND WITHOUT CONTRAST (CT PULMONARY ANGIOGRAM FOR PE) CLINICAL INFORMATION: right chest pain/back pain COMPARISON: MR lumbar spine 04/19/2021 TECHNIQUE: Prior to contrast administration, noncontrast localization images were obtained. Subsequently, multidetector volumetric imaging was performed from the thoracic inlet to the pubic symphysis through the chest, abdomen, and pelvis following the administration of 65 mL Omnipaque 350 intravenous contrast. No contrast reaction reported Sagittal, coronal, and MIP oblique sagittal (through the chest only) reformatted images were obtained on the CT workstation, uploaded to PACS, and reviewed. This CT examination was performed using dose optimization techniques as appropriate, variously including the following: *Automated exposure control *Adjustment of mA and/or kV according to patient size (this includes techniques or standardized protocols for targeted exams where dose is matched to indication/reason for exam; i.e. extremities or head) *Use of iterative reconstruction technique Total exam dose-length product: 327 mGy-cm FINDINGS: QUALITY OF STUDY/CONTRAST BOLUS: Satisfactory. PULMONARY ARTERIES: No central or segmental pulmonary emboli. CORONARY ARTERY CALCIUM: None seen THORACIC AORTA: No aneurysm or dissection. LUNG: Calcified granulomas are present No focal consolidation, nodules or masses. PLEURA: No pleural effusion or pneumothorax. MEDIASTINUM: Normal heart size. No pericardial effusion. No hilar or mediastinal lymphadenopathy. No evidence of septal bowing or right heart strain. CHEST WALL/AXILLA: No axillary or internal mammary lymphadenopathy. OSSEOUS STRUCTURES: No acute or suspicious osseous abnormality. VISUALIZED ABDOMEN: The spleen and liver are both likely enlarged although not all included. Liver attenuation is decreased suggesting hepatic steatosis. There is a 3.4 x 2.9 x 3.0 cm left adrenal mass that even after contrast measures 10 Hounsfield units consistent with a benign adenoma. No additional imaging or follow-up is needed. CT/CT angio chest PE protocol IMPRESSION: 1. No evidence of pulmonary emboli. 2. Incidental note made of hepatosplenomegaly and hepatic steatosis. 3. Benign left adrenal adenoma. VTE: negative. Fleischner guidelines were followed. Electronically signed by: Kareem Cloud MD 01/04/2024 09:41 PM [facility]
--- NOTE | ~2024-01-04 | XR_ITS ---
EXAMINATION: XR CHEST CLINICAL INFORMATION: SOB COMPARISON: X-ray dated November 15, 2022 TECHNIQUE: Frontal view of the chest was obtained. FINDINGS: No consolidation, pleural effusion or pneumothorax. Cardiomediastinal silhouette is normal in size. Osseous structures are intact. XR/XR chest 1V IMPRESSION: No acute airspace disease. Stable chest. Electronically signed by: Cash eLi MD 01/04/2024 03:57 PM EST
[2024-01-04 14:39] VITALS: BP 185/82; PULSE 81; RESP 20; TEMP 36.6; O2SAT 97; BMI 29.6
--- NOTE | 2024-01-04 14:44 | ECG_ITS ---
Test Reason : SOB Blood Pressure : / mmHG Vent. Rate : 073 BPM Atrial Rate : 073 BPM P-R Int : 138 ms QRS Dur : 076 ms QT Int : 376 ms P-R-T Axes : 048 021 057 degrees QTc Int : 414 ms Poor data quality, interpretation may be adversely affected Normal sinus rhythm Normal ECG When compared with ECG of 15-NOV-2022 00:01, No significant change was found Referred By: Dakotah Mcclain Electronically Signed By:FARHEEN ARCHER MD
--- NOTE | 2024-01-04 14:45 | ED.GENADULT ---
HPI - General Adult General Chief complaint: Dyspnea Stated complaint: SOB Time Seen by Provider: 01/04/24 16:59 Source: patient, family and RN notes reviewed Mode of arrival: ambulatory Limitations: no limitations History of Present Illness ED Provider: Tolu RUIZ narrative: 63-year-old female with past medical history significant for GERD presents for evaluation of right-sided chest pain and back pain. The pain started yesterday. The pain is worse with lying on her back. The pain is worse with deep breathing. Her pain is 7/10. She does feel short of breath denies any leg swelling denies any history of DVT or PE no other complaints or concerns at this time Related Data Home Medications ?Medication ?Instructions ?Recorded ?Confirmed aspirin 81 mg tablet,delayed 81 mg PO DAILY 09/15/21 06/08/22 release alprazolam 1 mg tablet 1 mg PO TID PRN 10/13/21 06/08/22 estradiol 0.5 mg tablet 0.5 mg PO DAILY 10/13/21 06/08/22 isosorbide mononitrate 30 mg 30 mg PO DAILY 10/13/21 06/08/22 tablet,extended release 24 hr simvastatin 20 mg tablet 20 mg PO DAILY 10/13/21 06/08/22 tramadol 50 mg tablet 50 mg PO DAILY PRN 10/13/21 06/08/22 famotidine 40 mg tablet 40 mg PO BEDTIME 12/15/21 06/08/22 Previous Rx's ?Medication ?Instructions ?Recorded omeprazole 40 mg capsule,delayed 40 mg PO BID #60 caps 09/15/21 release cyclobenzaprine 5 mg tablet 5 mg PO TID PRN muscle spasm #15 01/04/24 tabs Allergies Allergy/AdvReac Type Severity Reaction Status Date / Time No Known Allergies Allergy Verified 01/04/24 14:42 Review of Systems Constitutional: Constitutional: Denies body ache(s), Denies chills and Denies headache(s) Eyes: Eyes: Denies blurry vision ENT: Denies headache(s) Cardiovascular: Cardiovascular: Reports chest pain and Reports dyspnea Respiratory: Respiratory: Denies cough and Reports dyspnea Gastrointestinal: Gastrointestinal: Denies abdominal pain, Denies nausea and Denies vomiting Musculoskeletal: Musculoskeletal: Reports back pain Integumentary/Breasts: Skin/Breast: Denies rash Neurologic: Denies headache(s) [facility] Past Medical History Medical History Angina pectoris Anxiety Back pain High cholesterol HTN (hypertension) Family History Family History Father CVD (cardiovascular disease) Paternal Aunt CVD (cardiovascular disease) Diabetes Paternal Aunt Diabetes Social History Social History (Updated 09/01/23 @ 08:47 by MAYELIN Figueredo) Alcohol intake: never Patient Tobacco Use Status: Never used Tobacco Smoked in Last 30 Days: No Use of substances other than those prescribed or required for medical reasons: No Advance Directives: No Advance Directives Information Provided: Yes Do you have a plan to hurt others: No Plan Patient : No Current occupational status: disabled Current occupation: left handed Physical Exam ED Vital Signs: Vital Signs - 24 hr 01/04/24 14:39 01/04/24 18:39 01/04/24 19:51 Temperature 97.8 F 98.1 F 98.1 F Pulse Rate 81 72 79 Respiratory Rate 20 15 16 Blood Pressure 185/82 H 174/86 H 162/76 H Pulse Oximetry 97 95 96 Oxygen Delivery Method Room Air Room Air Room Air BMI result Body Mass Index 29.6 Const General: healthy appearing, comfortable, no acute distress, alert and awake Nutritional Appearance: well nourished Orientation/consciousness: patient oriented x3 HENMT Head: Yes normocephalic and Yes atraumatic Eyes Eyelids: Yes eyelids normal Conjunctivae: conjunctivae normal Sclerae: sclerae normal Corneas: corneas normal Pupils: Equal, round and reactive pupils present EOM: EOMs intact bilaterally Neck Neck: Yes full ROM Resp Effort & Inspection: normal respiratory effort, able to speak in complete sentences, no audible wheezes and not labored Auscultation: clear to auscultation bilaterally Cardio Rate: regular rate Rhythm: regular rhythm GI Inspection: No distended Palpation (GI): Soft to palpation, not firm, nontender, no guarding and not rigid Back/Spine/Pelvis Other: tender to palpation to the right thoracic region. No vertebral tenderness. No step-offs or deformities Skin General skin exam: elasticity normal Neuro General: patient oriented x3 Cranial nerves: Yes Equal, round and reactive pupils present and Yes Bilaterally intact EOM present Cognition (Neuro): normal cognition Extrem Other: Moving all extremities well without any obvious deformities Course Course Course Narrative: RME' 63-year-old female presents to ED for left lung pain and shortness of breath yesterday unable to leg down flat. Patient denies any leg swelling. Labs EKG chest x-ray ordered. Vital signs stable. Patient not in distress Reevaluation(s) Reevaluation #1: I Rosa Shannon PA-C have accepted care of the patient and signed out pending CTA and final disposition CTA chest: CT/CT angio chest PE protocol IMPRESSION: 1. No evidence of pulmonary emboli. 2. Incidental note made of hepatosplenomegaly and hepatic steatosis. 3. Benign left adrenal adenoma. VTE: negative. Fleischner guidelines were followed. Electronically signed by: Kareem Cloud MD 01/04/2024 09:41 PM EST Medications Administered Discontinued Medications Generic Name Dose Route Start Last Admin Trade Name Freq PRN Reason Stop Dose Admin Iohexol 100 ml 01/04/24 19:52 01/04/24 19:52 Iohexol 350 Mg/Ml 100 Ml Infus..Btl IV 01/04/24 19:53 65 ml ONCE ONE Administration Medical Decision Making Medical Decision Making [facility] Narrative: 63-year-old female presents for evaluation of right-sided chest and back pain. Her painIs worse with movement, worse with palpation. She denies associated cough but endorses shortness of breath. The patient's EKG is nonischemic, troponin negative despite 2 days of chest pain, she rules out for ACS., chest x-ray does not show any pneumothorax, infiltrates. She has no abdominal pain or tenderness on exam. Plan for CT angiography to evaluate for PE. If negative, patient's symptoms are most likely musculoskeletal in origin Differential Diagnosis Differential Diagnoses: The differential diagnosis associated with the presentation includes back pain Chest wall pain Costochondritis Pneumonia Influenza Pneumothorax Pleural effusion PE Admission/Observation Consideration of admission/observation: Escalation of care including admission/observation considered Lab Data [facility] Lab Attestation statement: I reviewed the patient's lab results. no leukocytosis or anemia. Normal platelet count. No electrolyte abnormalities. Random glucose of 135, the patient is not a diabetic 01/04/24 15:07 01/04/24 15:07 Labs: Lab Results 01/04/24 Range/Units 15:07 WBC 10.3 (4.8-10.8) X10*3/uL RBC 4.70 (4.20-5.50) X10*6/uL Hgb 13.5 (12.0-16.0) g/dl Hct 40.3 (37.0-47.0) % MCV 85.7 (80.0-98.0) fL MCH 28.7 (27.0-33.0) pg MCHC 33.5 (31.0-35.0) g/dl RDW 12.2 (11.0-16.0) % Plt Count 200 (160-400) X10*3/uL MPV 12.5 H (9.4-12.3) fL Immature Gran % (Auto) 0.4 (0.0-0.4) % Neut % (Auto) 72.4 (45-73) % Lymph % (Auto) 18.0 L (20-40) % [place] % (Auto) 7.5 (2-11) % Eos % (Auto) 1.2 (0-4) % Baso % (Auto) 0.5 (0-2) % Lymph # (Auto) 1.9 (1.2-4.9) X10*3/uL [place] # (Auto) 0.8 (0.1-1.2) X10*3/uL Eos # (Auto) 0.1 (0.0-0.4) X10*3/uL Baso # (Auto) 0.1 (0.0-0.2) X10*3/uL Abs Immat Gran (auto) 0.04 H (0.00-0.03) X10*3/uL Absolute Neuts (auto) 7.5 (2.0-8.3) x10*3/uL Absolute Nucleated RBC 0.000 (0.0-0.012) X10*3/uL Nucleated RBC % (auto) 0.0 (0.0-0.2) /100WBC PT 10.7 L (10.9-12.4) SEC INR 0.9 (0.9-1.1) APTT 29.1 (26.0-36.8) SEC Sodium 140 (135-145) mmol/L Potassium 3.9 (3.3-5.1) mmol/L Chloride 108 (96-108) mmol/L Carbon Dioxide 23 (22-29) mmol/L Anion Gap 13 (12-20) BUN 8 L (9-16) mg/dL Creatinine 0.72 (0.5-1.4) mg/dL Estim Creat Clear Calc 74.0 Estimated GFR > 60 Random Glucose 135 H (60-115) mg/dL Calcium 9.4 (8.4-10.2) mg/dL Total Bilirubin 0.2 (0.0-1.0) mg/dL AST 41 H (5-31) U/L ALT 50 H (0-31) U/L Alkaline Phosphatase 107 (39-117) U/L Troponin I High Sens 14.1 (<3.5-17.0) ng/L B-Natriuretic Peptide < 10 (<100) pg/mL Total Protein 7.5 (6.5-8.0) g/dL Albumin 3.9 (3.5-5.0) g/dL Influenza Type A (PCR) NEGATIVE (Negative) Influenza Type B (PCR) NEGATIVE (Negative) RSV RNA Qual (PCR) NEGATIVE (Negative) SARS-CoV-2 RNA (RT-PCR) NEGATIVE (Negative) Independent Interpretation I performed an independent interpretation of an: EKG Interpretation: sinus rhythm with a rate of 73 beats per minute. No ST segment elevation ND. Nondiagnostic EKG Radiology Impression Discussion of test interpretation with radiology: I have reviewed the radiologist's reading. Radiologist Impression: FINDINGS: No consolidation, pleural effusion or pneumothorax. Cardiomediastinal silhouette is normal in size. Osseous structures are intact. XR/XR chest 1V IMPRESSION: No acute airspace disease. Stable chest. Electronically signed by: Cash Lei MD 01/04/2024 03:57 PM [facility] Discharge Plan Discharge Clinical Impression: Back pain, Atypical chest pain Patient Disposition: Home, Self-Care Instructions: Chest Pain (ED), Back Pain (ED) Additional Instructions: your workup in the ER today was reassuring. This includes your blood work, EKG, CT scan your pain is most likely musculoskeletal in origin such as a muscle strain you may use ibuprofen / Tylenol for pain. Use cyclobenzaprine as needed for muscle spasms. This may make you drowsy, do not drink alcohol or drive after taking it Prescriptions: New cyclobenzaprine 5 mg tablet 5 mg PO TID PRN (Reason: muscle spasm) Qty: 15 0RF No Action aspirin 81 mg tablet,delayed release (DR/EC) 81 mg PO DAILY omeprazole 40 mg capsule,delayed release(DR/EC) 40 mg PO BID Qty: 60 6RF alprazolam 1 mg tablet 1 mg PO TID PRN isosorbide mononitrate 30 mg tablet extended release 24 hr 30 mg PO DAILY simvastatin 20 mg tablet 20 mg PO DAILY famotidine 40 mg tablet 40 mg PO BEDTIME tramadol 50 mg tablet 50 mg PO DAILY PRN estradiol 0.5 mg tablet 0.5 mg PO DAILY Rx Instructions: off 5 days; repeat cycle Print Language: Japanese
[2024-01-04 15:13] LABS: MANUAL DIFF FLAG NO
[2024-01-04 15:14] LABS: Basophils Absolute Auto 0.1 X10*3/uL (0.0-0.2); Basophils Percent Auto 0.5 % (0-2); Eosinophils Absolute Auto 0.1 X10*3/uL (0.0-0.4); Eosinophils Percent Auto 1.2 % (0-4); Hematocrit 40.3 % (37.0-47.0); Hemoglobin 13.5 g/dl (12.0-16.0); Imm Gran Abs Auto 0.04 X10*3/uL (0.00-0.03); Imm Gran Pct Auto 0.4 % (0.0-0.4); Lymphocytes Absolute Auto 1.9 X10*3/uL (1.2-4.9); Mean Corpuscular HGB Conc 33.5 g/dl (31.0-35.0); Mean Corpuscular Hemoglobin 28.7 pg (27.0-33.0); Mean Corpuscular Volume 85.7 fL (80.0-98.0); Mean Platelet Volume 12.5 fL (9.4-12.3); Monocytes Absolute Auto 0.8 X10*3/uL (0.1-1.2); Monocytes Percent Auto 7.5 % (2-11); Neutrophils Absolute Auto 7.5 x10*3/uL (2.0-8.3); Neutrophils Percent Auto 72.4 % (45-73); Platelet Count 200 X10*3/uL (160-400); Red Cell Distribution Width 12.2 % (11.0-16.0); White Blood Count 10.3 X10*3/uL (4.8-10.8)
[2024-01-04 15:22] LABS: INTERNATIONAL NORM RATIO 0.9 (0.9-1.1); Prothrombin Time 10.7 SEC (10.9-12.4)
[2024-01-04 15:25] LABS: Partial Thromboplastin Time 29.1 SEC (26.0-36.8)
[2024-01-04 15:28] LABS: Alanine Aminotransferase 50 U/L (0-31); Albumin Level 3.9 g/dL (3.5-5.0); Alkaline Phosphatase 107 U/L (39-117); Anion Gap 13 (12-20); Aspartate Amino Transferase 41 U/L (5-31); Bilirubin Total 0.2 mg/dL (0.0-1.0); Blood Urea Nitrogen 8 mg/dL (9-16); Calcium 9.4 mg/dL (8.4-10.2); Carbon Dioxide 23 mmol/L (22-29); Chloride 108 mmol/L (96-108); Estimated Glomerular Filt Rate > 60; Glucose Random 135 mg/dL (60-115); Potassium 3.9 mmol/L (3.3-5.1); Sodium 140 mmol/L (135-145); Total Protein 7.5 g/dL (6.5-8.0)
[2024-01-04 15:34] LABS: B Type Natriuretic Peptide < 10 pg/mL (<100)
[2024-01-04 15:35] LABS: Troponin-I High Sensitivity 14.1 ng/L (<3.5-17.0)
[2024-01-04 16:44] LABS: Influenza A PCR NEGATIVE (Negative); Influenza B PCR NEGATIVE (Negative); Resp Syncy Virus RNA Qual PCR NEGATIVE (Negative); SARS COV2 PCR INHOUSE NEGATIVE (Negative)
[2024-01-04 18:39] VITALS: BP 174/86; PULSE 72; RESP 15; TEMP 36.7; O2SAT 95
[2024-01-04 19:51] VITALS: BP 162/76; PULSE 79; RESP 16; TEMP 36.7; O2SAT 96
[2024-01-04] MEDS: iohexoL 350 MG/ML 100 ML INFUS..BTL IV (19:52)
--- NOTE | 2024-01-04 19:52 | MHC.EDTECH ---
This pct assumed care of Patient at 1900 ,Patient up and walk to bathroom ,void back to bed ,vitals taken ,no apparent distress noted Plan of care continue .
[2024-01-04 21:56] VITALS: BP 145/63; PULSE 98; RESP 16; TEMP 36.7; O2SAT 95
[2024-01-04 22:08] VITALS: BP 145/63; PULSE 98; RESP 16; TEMP 36.7; O2SAT 95
== END 2024-01-04 22:09 | disposition home or self-care (01) ==
PROVIDERS: Physician Assistant; Emergency Provider Internal Medicine; PCP Nurse Practitioner Primary Care
DX: R06.02 Shortness of breath (principal); M54.50 Low back pain, unspecified; R07.89 Other chest pain; Z03.818 Encounter for observation for suspected exposure to other biological agents ruled out; Z79.899 Other long term (current) drug therapy
CPT/HCPCS: 0241U; 71045; 71275; 80053; 83880; 84484; 85025; 85610; 85730; 93005; 99283; 99284; 99285; Q9967

== ENCOUNTER → 2024-01-04 14:44 | Outpatient (BNV) | payer OTHER, SELFPAY | PROVIDERS: PCP Nurse Practitioner Primary Care; Visit Provider Radiology Diagnostic Radiology | DX: R06.02 Shortness of breath (principal) | CPT/HCPCS: 71045 ==

== ENCOUNTER → 2024-01-04 14:44 | Outpatient (BNV) | payer OTHER, SELFPAY | PROVIDERS: Emergency Provider Internal Medicine; PCP Nurse Practitioner Primary Care; Visit Provider Internal Medicine Cardiovascular Disease | DX: R06.02 Shortness of breath (principal) | CPT/HCPCS: 93010 ==

== ENCOUNTER 2024-05-02 21:39 | Emergency (ER) | payer OTHER, SELFPAY ==
--- NOTE | 2024-05-02 | ECG_ITS ---
Test Reason : back pain Blood Pressure : */* mmHG Vent. Rate : 68 BPM Atrial Rate : 68 BPM P-R Int : 146 ms QRS Dur : 82 ms QT Int : 390 ms P-R-T Axes : 50 19 53 degrees QTcB Int : 414 ms Normal sinus rhythm Normal ECG When compared with ECG of 04-Jan-2024 14:48, No significant change was found Referred By: Generic ED Physician Electronically Signed By: Lambert Corado
[2024-05-02 21:41] VITALS: BP 158/69; PULSE 72; RESP 16; TEMP 36.3; O2SAT 98; BMI 31.6
[2024-05-02 23:45] VITALS: BP 149/79; PULSE 80; RESP 16; TEMP 36.8; O2SAT 97
--- NOTE | 2024-05-03 00:50 | PC.NURSE ---
T/w and assembler caterpillar spider at bedside. Pt reports left sided shoulder pain radiating into back, was seen at urgent care yesterday, given RX meds with no relief. Pt awaiting MD sign up, resting in bed with family at bedside. Call felder within reach.
--- NOTE | 2024-05-03 01:34 | ED.BACK ---
HPI - Back Pain/Injury General Chief Complaint: Back Pain/Injury Stated Complaint: upper back pain Time Seen by Provider: 05/03/24 01:34 Source: patient Mode of arrival: ambulatory Limitations: no limitations History of Present Illness ED Provider: HPI Narrative: Patient with chronic back pain apparently started having left upper back pain after she was nodding off while praying seen in the clinic and prescribed tizanidine patient is already taking tramadol and ibuprofen for low back no neck pain no chest pain no paresthesia or weakness of the left arm Related Data Home Medications ?Medication ?Instructions ?Recorded ?Confirmed aspirin 81 mg tablet,delayed 81 mg PO DAILY 09/15/21 06/08/22 release alprazolam 1 mg tablet 1 mg PO TID PRN 10/13/21 06/08/22 estradiol 0.5 mg tablet 0.5 mg PO DAILY 10/13/21 06/08/22 isosorbide mononitrate 30 mg 30 mg PO DAILY 10/13/21 06/08/22 tablet,extended release 24 hr simvastatin 20 mg tablet 20 mg PO DAILY 10/13/21 06/08/22 tramadol 50 mg tablet 50 mg PO DAILY PRN 10/13/21 06/08/22 famotidine 40 mg tablet 40 mg PO BEDTIME 12/15/21 06/08/22 Previous Rx's ?Medication ?Instructions ?Recorded omeprazole 40 mg capsule,delayed 40 mg PO BID #60 caps 09/15/21 release cyclobenzaprine 5 mg tablet 5 mg PO TID PRN muscle spasm #15 01/04/24 tabs lidocaine 4 % topical patch 1 patch topical DAILY PRN pain #30 05/03/24 (Salonpas (lidocaine)) ea Allergies Allergy/AdvReac Type Severity Reaction Status Date / Time No Known Allergies Allergy Verified 05/02/24 21:45 Review of Systems Review of Systems: Yes all other systems are reviewed and are negative PMF Past Medical History Medical History Back pain Angina pectoris Anxiety High cholesterol HTN (hypertension) Family History Family History Father CVD (cardiovascular disease) Paternal Aunt CVD (cardiovascular disease) Diabetes Paternal Aunt Diabetes Social History Social History Alcohol intake: never Patient Tobacco Use Status: Never used Tobacco Advance Directives: No Advance Directives Information Provided: Yes Do you have a plan to hurt others: No Plan Current occupational status: disabled Current occupation: left handed Physical Exam Vital Signs: Vital Signs: Last Vital Signs Temp 98.2 F 05/02/24 23:45 Pulse 80 05/02/24 23:45 Resp 16 05/02/24 23:45 BP 149/79 H 05/02/24 23:45 Pulse Ox 97 05/02/24 23:45 O2 Del Method Room Air 05/02/24 23:45 BMI result Body Mass Index 31.6 Appearance: Alert. Oriented X3. No acute distress. Eyes: no pallor or icterus ENT: Pharynx normal. Oral Mucosa moist Neck: Normal inspection. Neck supple. No midline tenderness CVS: Normal heart rate and rhythm. Pulses normal. Respiratory: No respiratory distress. Equal air entry bilateral, no wheezing/rales/rhonchi Abd: soft, not tender Skin: Skin warm and dry. Normal skin color. Normal skin turgor. Extremities: No lower extremity edema, no calf tenderness back: Tenderness in left trapezius area Neuro: Oriented X 3. Medical Decision Making Medical Decision Making MDM Narrative: Patient with upper back pain clinically musculoskeletal pain will prescribe Lidoderm patch Discharge Plan Discharge Clinical Impression: Thoracic back pain Patient Disposition: Home, Self-Care Instructions: Thoracic Pain (ED) Additional Instructions: Continue pain medication muscle relaxant Apply Lidoderm patch Follow with your PCP Prescriptions: New lidocaine [Salonpas (lidocaine)] 4 % adhesive patch,medicated 1 patch topical DAILY PRN (Reason: pain) Qty: 30 0RF No Action cyclobenzaprine 5 mg tablet 5 mg PO TID PRN (Reason: muscle spasm) Qty: 15 0RF aspirin 81 mg tablet,delayed release (DR/EC) 81 mg PO DAILY omeprazole 40 mg capsule,delayed release(DR/EC) 40 mg PO BID Qty: 60 6RF alprazolam 1 mg tablet 1 mg PO TID PRN isosorbide mononitrate 30 mg tablet extended release 24 hr 30 mg PO DAILY simvastatin 20 mg tablet 20 mg PO DAILY famotidine 40 mg tablet 40 mg PO BEDTIME tramadol 50 mg tablet 50 mg PO DAILY PRN estradiol 0.5 mg tablet 0.5 mg PO DAILY Rx Instructions: off 5 days; repeat cycle Print Language: Colombian
[2024-05-03] MEDS: Ketorolac Tromethamine 60 MG/2 ML VIAL IM (01:47)
[2024-05-03] MEDS: Lidocaine 4 % Patch ADH..PATCH 1 PATCH TRANSDERMA (01:48)
[2024-05-03 02:03] VITALS: BP 154/72; PULSE 84; RESP 20; TEMP -17.7; TEMP 0; O2SAT 98
== END 2024-05-03 02:05 | disposition home or self-care (01) ==
PROVIDERS: Emergency Provider Internal Medicine; PCP Nurse Practitioner Primary Care
DX: M54.6 Pain in thoracic spine (principal); I10 Essential (primary) hypertension; E78.5 Hyperlipidemia, unspecified; Z79.82 Long term (current) use of aspirin; Z79.02 Long term (current) use of antithrombotics/antiplatelets; Z79.899 Other long term (current) drug therapy
CPT/HCPCS: 93005; 96372; 99284; J1885

== ENCOUNTER → 2024-05-02 21:49 | Outpatient (BNV) | payer OTHER, SELFPAY | PROVIDERS: Emergency Provider Internal Medicine; PCP Nurse Practitioner Primary Care; Visit Provider Internal Medicine Cardiovascular Disease | DX: M54.9 Dorsalgia, unspecified (principal) | CPT/HCPCS: 93010 ==

== ENCOUNTER 2024-05-03 15:06 | Outpatient (REF) | payer OTHER, SELFPAY ==
--- NOTE | ~2024-05-03 | XR_ITS ---
EXAMINATION: XR SHOULDER, LEFT CLINICAL INFORMATION: acute pain COMPARISON: None available. TECHNIQUE: AP external rotation, Grashey, scapular Y, and axillary views of the left shoulder. FINDINGS: The bones and soft tissues are normal. No fracture. Glenohumeral and acromioclavicular alignment is anatomic with normal joint space. No abnormal soft tissue calcifications. XR/XR shoulder LT min 2V IMPRESSION: Unremarkable left shoulder. Electronically signed by: Cheikh Donald MD 05/03/2024 04:22 PM EDT
== END 2024-05-03 15:07 | disposition home or self-care (01) ==
LOC: HO.HHCX 15:06
PROVIDERS: Visit Provider Internal Medicine
DX: M25.512 Pain in left shoulder (principal)
CPT/HCPCS: 73030

== ENCOUNTER → 2024-05-03 15:06 | Outpatient (BNV) | payer OTHER, SELFPAY | PROVIDERS: Visit Provider Radiology Diagnostic Radiology | DX: M25.512 Pain in left shoulder (principal) | CPT/HCPCS: 73030 ==

== ENCOUNTER → 2024-05-04 09:45 | Outpatient (BNV) | payer OTHER, SELFPAY | PROVIDERS: Emergency Provider Internal Medicine; PCP Nurse Practitioner Primary Care; Visit Provider Internal Medicine Cardiovascular Disease | DX: R94.31 Abnormal electrocardiogram [ECG] [EKG] (principal); R07.9 Chest pain, unspecified | CPT/HCPCS: 93010 ==

== ENCOUNTER 2024-05-04 23:54 | Emergency (ER) | payer OTHER, SELFPAY ==
--- NOTE | ~2024-05-04 | XR_ITS ---
CLINICAL HISTORY: shortness of breath, cough, chest back pain 2 view chest x-ray Comparison: Chest CT from 01/04/2024 Findings: Mild bibasilar atelectasis/pneumonitis. No pneumothorax or pleural effusion. Mild/borderline cardiomegaly. Degenerative changes include imaged shoulders, AC joints, and imaged spine. IMPRESSION: Mild bibasilar atelectasis/pneumonitis. This document has been electronically signed by: Fausto Huerta MD on 05/05/2024 01:01:49
--- NOTE | 2024-05-04 09:45 | ECG_ITS ---
Test Reason : chest pain Blood Pressure : */* mmHG Vent. Rate : 81 BPM Atrial Rate : 81 BPM P-R Int : 144 ms QRS Dur : 80 ms QT Int : 360 ms P-R-T Axes : 47 13 51 degrees QTcB Int : 418 ms Normal sinus rhythm Nonspecific T wave abnormality Abnormal ECG When compared with ECG of 02-May-2024 21:49, No significant change was found Referred By: Ryan Gay Electronically Signed By: FARHEEN ARCHER MD
[2024-05-05 00:04] VITALS: BP 161/85; PULSE 85; O2SAT 97
[2024-05-05 00:07] VITALS: BP 147/78; PULSE 91; RESP 18; TEMP 36.8; O2SAT 95; BMI 30.7
--- NOTE | 2024-05-05 00:13 | MHC.EDTECH ---
pt arrived via ambulance and brought to triage area. EKG performed @ 2358, pt then brought to medication nurse
[2024-05-05 00:40] LABS: Hematocrit 45.2 % (37.0-47.0); Hemoglobin 15.4 g/dl (12.0-16.0); Mean Corpuscular HGB Conc 34.1 g/dl (31.0-35.0); Mean Corpuscular Hemoglobin 28.4 pg (27.0-33.0); Mean Corpuscular Volume 83.2 fL (80.0-98.0); Mean Platelet Volume 12.6 fL (9.4-12.3); Platelet Count 241 X10*3/uL (160-400); Red Blood Count 5.43 X10*6/uL (4.20-5.50); Red Cell Distribution Width 12.8 % (11.0-16.0)
[2024-05-05 00:57] LABS: Alanine Aminotransferase 55 U/L (0-31); Albumin Level 4.4 g/dL (3.5-5.0); Anion Gap 14 (12-20); Aspartate Amino Transferase 34 U/L (5-31); Bilirubin Total 0.3 mg/dL (0.0-1.0); Blood Urea Nitrogen 11 mg/dL (9-16); Carbon Dioxide 26 mmol/L (22-29); Chloride 105 mmol/L (96-108); Creatinine Clr Calc Pharmacy 68.6; Estimated Glomerular Filt Rate > 60; Glucose Random 110 mg/dL (60-115); Magnesium 2.1 mg/dL (1.6-2.6); Potassium 3.3 mmol/L (3.3-5.1); Sodium 142 mmol/L (135-145); Total Protein 8.9 g/dL (6.5-8.0)
[2024-05-05 01:09] LABS: Alkaline Phosphatase 117 U/L (39-117)
[2024-05-05] MEDS: Magnesium Hydrox/Alum Hydrox 30 ML ORAL.SUSP PO (03:31)
[2024-05-05] MEDS: Gabapentin 300 MG CAPSULE PO (03:31)
--- NOTE | 2024-05-05 03:48 | PC.NURSE ---
Resumed care of patient at 0300, DC placed by provider, meds given per APR. Pt in agreement with dc plan. Able to ambulate out to wait for son to come
[2024-05-05 03:49] VITALS: BP 130/75; PULSE 86; RESP 16; TEMP 36.6; O2SAT 95
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
== END 2024-05-05 03:50 | disposition home or self-care (01) ==
PROVIDERS: Emergency Provider Internal Medicine; PCP Nurse Practitioner Primary Care
DX: M54.9 Dorsalgia, unspecified (principal); R06.02 Shortness of breath; R05.9 Cough, unspecified; I10 Essential (primary) hypertension; Z79.899 Other long term (current) drug therapy
CPT/HCPCS: 36415; 71046; 80053; 83735; 84484; 85027; 93005; 99282; 99283

== ENCOUNTER → 2024-05-05 00:18 | Outpatient (BNV) | payer OTHER, SELFPAY | PROVIDERS: PCP Nurse Practitioner Primary Care; Visit Provider Radiology Neuroradiology | DX: J98.11 Atelectasis (principal) | CPT/HCPCS: 71046 ==

== ENCOUNTER 2024-07-02 11:35 | Outpatient (REF) | payer OTHER, SELFPAY ==
--- NOTE | ~2024-07-02 | XR_ITS ---
EXAMINATION: XR CHEST CLINICAL INFORMATION: pain at rib under right breast COMPARISON: May 05, 2024. TECHNIQUE: 2 views of the chest were obtained. FINDINGS: No consolidation pleural effusion or pneumothorax. No hyperinflation. Cardiomediastinal silhouette size is normal. Calcified plaque aortic arch. Mild multilevel thoracic and upper lumbar spondylosis. Calcifications in the abdominal aorta. Patient's large body habitus/obesity. XR/XR chest 2V IMPRESSION: No acute airspace disease Electronically signed by: Cash Lei MD 07/02/2024 12:27 PM EDT
--- OUTSIDE RECORDS SUMMARY | 2024-07-02 12:49 | XMS_ITS | Encounter Summary ---
Author Organization [facility] Address [address] [place] [address] [address] [place] [address] Care Team Providers Care Digital Campaign Specialist Name Role Phone Yadira Chamberlain Primary Care Provider [phone] Reason for Visit * Reason Comments Med Refill Encounter Details Date Type Department Care Team ([facility] Contact Info) Description 03/22/[address] [facility] [address] [place] [id number] Yadira Chamberlain ANP [address] [place] [address] Chronic bilateral low back pain without sciatica Social History Tobacco Use Types Packs/Day Years Used Date Smoking Tobacco: Never Comments Unknown Sex and Gender Information Value Date Recorded Sex Assigned at Female 12/13/2021 10:39 AM EDT Legal Sex Female 10:39 AM EDT Gender Identity Female 12/13/2021 10:39 AM EDT Sexual Orientation Choose not to disclose 2021 10:39 AM EDT COVID-19 Exposure Response Date Recorded In the last 10 days, have yo u been in contact with someone who was confirmed or suspected to have Coronavirus/COVID-19? No / Unsure 03/22/2022 9:25 AM EST documented as of this encounter Plan of Treatment Upcoming Encounters Date Type Department Care Team (Late Contact Info) Description 08/06/2024 11:00 AM EDT Office Visit [facility] [address] [place] [phone] documented as of this encounter Visit Diagnoses Diagnosis Chronic bilateral low back pain without sciatica documented in this encounter Care Teams Digital Campaign Specialist Relationship Specialty Start Date End Date Yadira Chamberlain ANP [address] [place] [id number] PCP - General Family Medicine 02/22/21 Gia Nino propagator 11/29/22 02/27/23 documented as of this encounter
--- OUTSIDE RECORDS SUMMARY | 2024-07-02 12:49 | XMS_ITS | Encounter Summary ---
Author Organization [employer] [facility] Address [address] [facility] [address] [place] [address] Care Team Providers Care On Call Name Role Phone Yadira Chamberlain Primary Care Provider [phone] Encounter Details Date Type Department Care Team ([facility] Contact Info) Description 03/04/2022 Orders Only [facility] [address] [place] [phone] Cinthya Mayers LPN Social History Tobacco Use Types Packs/Day Years [...] suspected to have Coronavirus/COVID-19? No / Unsure 02/24/2022 10:48 AM EST documented as of this encounter Plan of Treatment Upcoming Encounters Date Type Department Care Team ([facility] Contact Info) Description 08/06/2024 11:00 AM EDT Office Visit [facility] [address] [place] [phone] documented as of this encounter Visit Diagnoses Not on filedocumented in this encounter Care Teams On Call Relationship Specialty Start Date End Date Yadira Chamberlain ANP [address] [place] [id number] PCP - General Family Medicine 02/22/21 Gia Nino case management specialist 11/29/22 02/27/23 documented as of this encounter
--- OUTSIDE RECORDS SUMMARY | 2024-07-02 12:49 | XMS_ITS | Encounter Summary ---
Author Organization [employer] Address [address] [facility] [address] [place] [address] Care Team Providers Care Bi Data Architect Name Role Phone Yadira Chamberlain Primary Care Provider [phone] Encounter Details Date Type Department Care Team ([facility] Contact Info) Description 04/11/2022 Orders Only [facility] [address] [place] [address] Bren Barrett LPN Social History Tobacco Use Types Packs/Day [...] Upcoming Encounters Date Type Department Care Team ([facility] Contact Info) Description 08/06/2024 11:00 AM EDT Office Visit [facility] [address] [place] [address] documented as of this encounter Visit Diagnoses Not on filedocumented in this encounter Care Teams Bi Data Architect Relationship Specialty Start Date End Date Yadira Chamberlain ANP [address] [place] [address] PCP - General Family Medicine 02/22/21 Gia Nino voice network engineer 11/29/22 02/27/23 documented as of this encounter
--- OUTSIDE RECORDS SUMMARY | 2024-07-02 12:49 | XMS_ITS | Encounter Summary ---
Author Organization [employer] Address [address] [facility] [address] [place] [address] Care Team Providers Care Jet Handler Name Role Phone Yadira Chamberlain Primary Care Provider [phone] Reason for Visit * Reason Comments Med Refill Encounter Details Date Type Department Care Team ([facility] st Contact Info) Description 01/25/2023 Refill [facility] [address] [place] [address] Yadira Chamberlain ANP [address] [place] [address] Chronic bilateral low back pain without sciatica Social History Tobacco Use Types Packs/Day Years Used Date Smoking Tobacco: Never Smokeless Tobacco: Never Alcohol Use Standard Drinks/Week Comments Never 0 (1 standard drink = 0.6 oz pur e alcohol) Depression Answer Date Recorded Patient Health Questionnaire-9 Score 8 01/18/2023 Patient Health Questionnaire-9 Score 8 01/18/2023 Last PHQ-9: Questionnaire Data Not on file 1 03/21/2022 Housing Stability Answer Date Recorded What is your housing situation today? I have kelly ritchie 11/28/[address] you li ve. Do you have problems with any of the following? None of the above 11/28/2022 Food Insecurity Answer Date Recorded Within the past 12 months, y ou worried that your food would run out before you got money to buy more: Sometimes True 2022 Within the past 12 months,th e food you bought just didn't last and you didn't have enough money to get more: Sometimes True 11/28/2022 Transportation Answer Date Recorded In the past 12 months, has l ack of transportation kept you from medical appts, meetings, work or from getting things needed for daily living? No 11/28/2022 Utilities Answer Date Recorded In the past 12 months, has t he electric, gas, oil or water company threatened to shut off services in your home? No 11/28/2022 Depression Answer Date Recorded Patient Health Questionnaire-2 Score 2 01/18/2023 Comments Unknown Sex and Gender Information Value Date Recorded Sex Assigned at Female 12/13/2021 10:39 AM EDT Legal Sex Female 10:39 AM EDT Gender Identity Female 12/13/2021 10:39 AM EDT Sexual Orientation Choose not to disclose 2021 10:39 AM EDT documented as of this encounter Plan of Treatment Upcoming Encounters Date Type Department Care Team (Late st Contact Info) Description 08/06/2024 11:00 AM EDT Office Visit [facility] [address] [place] [address] documented as of this encounter Visit Diagnoses Diagnosis Chronic bilateral low back pain without sciatica documented in this encounter Additional Health Concerns Assessment Noted Time PHQ-9 Depression Total Score: 8 01/19/20 23 4:02 PM EST documented as of this encounter Care Teams Jet Handler Relationship Specialty Start Date End Date Yadira Chamberlain ANP [address] [place] [id number] PCP - General Family Medicine 02/22/21 Gia Nino RN Care Manager 11/29/22 02/27/23 documented as of this encounter
--- OUTSIDE RECORDS SUMMARY | 2024-07-02 12:49 | XMS_ITS | Encounter Summary ---
Author Organization [employer] Address [address] [facility] [address] [place] [address] Care Team Providers Care Elementary Librarian Name Role Phone Yadira Chamberlain Primary Care Provider Reason for Visit * Reason Comments Med Refill Encounter Details Date Type Department Care Team ([facility] st Contact Info) Description 09/15/2023 Refill [facility] [address] [place] [address] Yadira Chamberlain ANP [address] [place] [address] Chronic bilateral low back pain without sciatica [...] 11:00 AM EDT Office Visit [facility] [address] [place] [address] documented as of this encounter Visit Diagnoses Diagnosis Chronic bilateral low back pain without sciatica documented in this encounter Additional Health Concerns Assessment Noted Time PHQ-9 Depression Total Score: 8 01/19/20 23 4:02 PM EST documented as of this encounter Care Teams Elementary Librarian Relationship Specialty Start Date End Date Yadira Chamberlain ANP [address] [place] [address] PCP - General Family Medicine 02/22/21 documented as of this encounter
--- OUTSIDE RECORDS SUMMARY | 2024-07-02 12:49 | XMS_ITS | Encounter Summary ---
Author Organization [employer] Address [address] [facility] [address] [place] [address] Care Team Providers Care Garbage Truck Driver Name Role Phone Yadira Chamberlain Primary Care Provider [phone] Encounter Details Date Type Department Care Team (Late st Contact Info) Description 09/06/2023 Orders Only [facility] [address] [place], [place] [phone] Yadira Chamberlain ANP [address] [place], [place] [phone] Social History Tobacco Use Types Packs/Day Years [...] 11:00 AM EDT Office Visit [facility] [address] [place] [address] documented as of this encounter Visit Diagnoses Not on filedocumented in this encounter Additional Health Concerns Assessment Noted Time PHQ-9 Depression Total Score: 8 01/19/20 23 4:02 PM EST documented as of this encounter Care Teams Garbage Truck Driver Relationship Specialty Start Date End Date Yadira Chamberlain ANP [address] [place] [address] PCP - General Family Medicine 02/22/21 documented as of this encounter
--- OUTSIDE RECORDS SUMMARY | 2024-07-02 12:49 | XMS_ITS | Clinical Summary ---
Author Organization [employer] Address [address] [facility] [address] [place] [address] Care Team Providers Care Shingle Bolt Cutter Name Role Phone Alondra Schneider Primary Care Provider [phone] Allergies Active Allergy Reactions Criticality Noted Date Comments Temazepam Palpitations Medium 10/24/2022 Palpitations, generalized itchiness Medications * This document contains information received from the source organization and may not represent a complete record from that organization. lidocaine (Lidoderm) 5 % patchIndicatio ns:Chronic midline low back pain without sciatica Apply 1 patch topically in the morning. Remove & discard patch within 12 hours or as directed by MD. 30 patch 3 09/07/19 23 Active Additional Information Patient not taking.Reported on 06/28/2024 triamcinolone (Kenalog) 0.1 % creamIndicatio ns:Rash Apply twice daily to rash for up to 2 weeks 45 g 10/25/19 23 Active Additional Information Patient not taking.Reported on 06/28/2024 isosorbide mononitrate ER (Imdur) 30 MG 24 hr tabletIndicati ons:Benign essential HTN TAKE 1 TABLET BY MOUTH EVERY MORNING 90 tablet 2 02/14/19 24 Active Additional Information Patient not taking.Reported on 06/28/2024 nitroglycerin (Nitrostat) 0.[address] 1 tablet under tongue once at 1st sign of attack; may repeat every 5 minutes up to 3 tabs/15min; if no relief go to ED 100 tablet 04/19/19 24 Active Additional Information Patient not taking.Reported on 06/28/2024 omeprazole (PriLOSEC) [address] capsule TAKE 1 CAPSULE BY MOUTH ONCE DAILY BEFORE A MEAL 90 capsule 06/26/19 24 Active Additional Information Patient not taking.Reported on 06/28/2024 famotidine (Pepcid) 40 MG tabletIndicati ons:Heartburn TAKE 1 TABLET BY MOUTH AT BEDTIME 90 tablet 1 11/02/19 24 Active Additional Information Patient not taking.Reported on 06/28/2024 simvastatin (Zocor) 20 MG tablet TAKE 1 TABLET BY MOUTH EVERY DAY 90 tablet 1 11/02/19 24 Active FLUoxetine (PROzac) 40 MG capsuleIndicat ions:Depressio n with anxiety TAKE 1 CAPSULE BY MOUTH EVERY DAY IN THE MORNING 90 capsule 1 12/06/19 24 Active Additional Information Patient not taking.Reported on 06/28/2024 aspirin (Aspirin Adult Low Strength) 81 MG EC tabletIndicati ons:Cardiovasc ular event risk TAKE 1 TABLET BY MOUTH EVERY DAY 90 tablet 1 02/14/19 25 Active mirtazapine (Remeron) 7.5 MG tabletIndicati ons:Insomnia, unspecified type TAKE 1 TABLET BY MOUTH EVERY DAY AT BEDTIME 90 tablet 3 03/01/19 25 Active losartan-hydro CHLOROthiazide (Hyzaar) 50-12.5 MG tablet Take 1 tablet by mouth Once per day. 30 tablet 3 05/02/19 25 026 Active Additional Information Patient not taking.Reported on 06/28/2024 cyclobenzaprin e (Flexeril) 10 MG tabletIndicati ons:Acute pain of left shoulder Take 0.5 tablets (5 mg) by mouth 3 times daily for 20 days. 30 tablet 05/04/19 25 Active Additional Information Patient not taking.Reported on 06/28/2024 traMADol (Ultram) 50 MG tabletIndicati ons:Chronic bilateral low back pain without sciatica Take 1 tablet (50 mg) by mouth every 12 (twelve) hours if needed for severe pain for up to 28 days. 56 tablet 06/11/19 25 025 Active ALPRAZolam (Xanax) 1 MG tabletIndicati ons:Anxiety TAKE 1 TABLET BY MOUTH UP TO TWICE DAILY NEEDED FOR ANXIETY. MAY TAKE ADDITIONAL TABLET UP TO 5 TIMES PER MONTH IF NEEDED 65 tablet 06/15/19 25 Active cyclobenzaprin e (Flexeril) 5 MG tabletIndicati ons:Chest wall pain Take 1 tablet (5 mg) by mouth if needed at bedtime for muscle spasms. Fijian label 30 tablet 07/03/19 25 Active traMADol (Ultram) 50 MG tabletIndicati ons:Chronic bilateral low back pain without sciatica Take 1 tablet (50 mg) by mouth every 12 (twelve) hours if needed for severe pain for up to 28 days. 56 tablet 05/10/19 25 025 Discontinued(R eorder (will not trigger notification to Pharmacy)) ALPRAZolam (Xanax) 1 MG tabletIndicati ons:Anxiety TAKE 1 TABLET BY MOUTH UP TO TWICE DAILY NEEDED FOR ANXIETY. MAY TAKE ADDITIONAL TABLET UP TO 5 TIMES PER MONTH IF NEEDED 65 tablet 05/16/19 25 025 Discontinued(R eorder (will not trigger notification to Pharmacy)) Active Problems Patient Care Coordination No te Formatting of this note migh t be different from the original. C3/CM Gia Nino RN, Problem Noted Date Diagnosed Date Chest wall pain 07/02/2024 Assessment & Plan (07/02/2024 11:07 AM EDT): Likely musculoskeletal from sleeping on air mattress. EKG with evidence of ischemia or infarction. Will check CXR to make sure no pathological fracture. 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 PANEL 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 agreement: 07/11/23 Tier: II (ROOF PANEL HANGER visits [id number]) - 02/27/24, PCP Jennie Additional considerations: BZO- Xanax 1mg BID as well Assessment & Plan (02/27/2024 5:42 PM EST): Timeline: 02/27/24: Group: Utox/pill count as expected Periodontal disease 08/25/2023 MARY (generalized anxiety disorder) 01/18/2023 Assessment & Plan (01/24/2023 10:54 AM EST): During IBH Consult Rosalina presenting with loss of interests/pleasure, change in sleep, change in appetite or weight, loss of energy, trouble concentrating, thoughts of worthlessness or guilt and chest pain, difficulty concentrating, dizziness, fatigue, insomnia, irritable, palpitations, racing thoughts, shortness of breath; for a period of 18+ mo, for all symptoms in the context of family issues illness or family illness recent move. PLAN: (check all that apply) New/Additional Services needed PCP management On-site non-integrated services . Clinician will place referral for psychopharmacology with Giancarlo Watts Assessment & Plan (01/19/2023 9:54 AM EST): During IBH Consult Rosalina presenting with Anhedonia, Nervousness, Overthinking, Worry, Sleep disturbance, Irritability, Fatigue, Shortness of breath, Automatic negative thoughts, Avoidance, Loss of interest or pleasure, Hopelessness, and Racing thoughts, numbness feelings of bitterness when thinking about her brother who tragically, significant loss of motivation; for a period of 18+ mo, for all symptoms in the context of family issues recent move. Rosalina was connected with a Psychiatrist in [place], ran out of medication. She has an upcoming appt with PCP Jennie on 01/23. Med management will be discussed with provider during next appointment. PLAN: New/Additional Services needed PCP management Off-site services for BH, Behavioral Health Integration Plan External OP therapy referral. Complicated grief 01/18/2023 Assessment & Plan (01/24/2023 10:54 AM EST): During IBH Consult Rosalina presenting with loss of interests/pleasure, change in sleep, change in appetite or weight, loss of energy, trouble concentrating, thoughts of worthlessness or guilt and chest pain, difficulty concentrating, dizziness, fatigue, insomnia, irritable, palpitations, racing thoughts, shortness of breath; for a period of 18+ mo, for all symptoms in the context of family issues illness or family illness recent move. PLAN: (check all that apply) New/Additional Services needed PCP management On-site non-integrated services . Clinician will place referral for psychopharmacology with Giancarlo Watts Assessment & Plan (01/19/2023 9:54 AM EST): During IBH Consult Rosalina presenting with Anhedonia, Nervousness, Overthinking, Worry, Sleep disturbance, Irritability, Fatigue, Shortness of breath, Automatic negative thoughts, Avoidance, Loss of interest or pleasure, Hopelessness, and Racing thoughts, numbness feelings of bitterness when thinking about her brother who tragically, significant loss of motivation; for a period of 18+ mo, for all symptoms in the context of family issues recent move. Rosalina was connected with a Psychiatrist in [place], ran out of medication. She has an upcoming appt with PCP Jennie on 01/23. Med management will be discussed with provider during next appointment. PLAN: New/Additional Services needed PCP management Off-site services for , Behavioral Health Integration Plan External OP therapy referral. Degenerative disc disease, lumbar 09/07/2022 Overview (02/27/2024): Lumbar MRI completed April 2021: There is disc degeneration at multiple levels within the lumbar spine. There are disc extrusions at T12-L1 and L1-L2 as described above. No canal stenosis. A bulging disc in conjunction with facet degenerative change at L5-S1 causes no more than mild mass effect on the left L5 foraminal nerve root. Otherwise no substantial mass effect on the traversing or foraminal nerve roots elsewhere within the [id number] of this examination. Assessment & Plan (02/27/2024 5:43 PM EST): -DME request for 10-in-1 pillow on 02/27/24 -Good engagement and participation with Group Medical Visit model -Encouraged multifactorial approach to pain control including pharm and non- pharm modalities -UTOX and Pill count as expected Assessment & Plan (2023 2:01 PM EST): Patient here for first group visit for chronic pain and participated to the extent that she felt comfortable. - utox and pill count as expected, regular screening interval 2-3 months for utox and pills - followup in 1-2 months for group chronic pain visit Assessment & Plan (08/08/2023 12:58 PM EDT): -Good engagement and participation with Group Medical Visit model -Encouraged multifactorial approach to pain control including pharm and non- pharm modalities -UTOX and Pill count as expected Assessment & Plan (07/12/2023 10:23 AM EDT): Patient here for first group visit for chronic pain and participated to the extent that she felt comfortable. - utox and pill count as expected, regular screening interval 2-3 months for utox and pills - followup in 1-2 months for group chronic pain visit - GAD7 with severe anxiety, BPI score of 7, interfering with daily function Primary insomnia 09/06/2022 Depression with anxiety 09/06/2022 Chronic GERD 09/06/2022 Globus sensation 09/06/2022 Overview (09/06/2022): Per ENT visit 06/10/21, lingual tonsil hypertrophy on laryngoscopy Chest pain 09/06/2022 Overview (09/06/2022): [facility] Exercise stress test 05/16/2022 with exercise 4 min 42 sec of Jeff protocol, achieving 98%??MPHR, with mild sob and fatigue, requesting to stop, no chest discomfort,??without arrythmia, with normotensive response to exercise, without EKG changes??meeting criteria for ischemia. Echo 07/01/22 Conclusions: - Normal left ventricular size and systolic function. There is ?? mildly increased left ventricular wall thickness.?? The visually?? estimated ejection fraction is between 55-60%. ? Essential hypertension 09/06/2022 Resolved Problems Problem Noted Date Diagnosed Date Resolved Date Epigastric pain 07/02/2024 07/02/2024 Assessment & Plan (07/02/2024 10:50 AM EDT): Symptoms suggestive of GERD. EKG without evidence of ischemia or past infraction. -avoid trigger foods such as caffeine, chocolate, spicy/fatty foods, and alcohol -discussed avoidance of NSAIDS, and importance of stress management -elevate head of bed, avoid lying down after meals -trial of PPI -consider H.pylori testing if not improved in 4-6 weeks Encounters Date Type Department Care Team Description 07/02/2024 10:20 AM EDT Office Visit [facility] [address] [place] [address] Dalila Raymond MD Chest wall pain (Primary Dx); Epigastric pain 06/28/2024 10:30 AM EDT Office Visit [facility] [address] [place] [address] Edward Miller DDS Periodontal disease (Primary Dx) 06/18/2024 11:15 AM EDT Office Visit [facility] [address] [place] [address] Norma Navas, GUZMAN Presbyopia (Primary Dx); Cataract, nuclear sclerotic, both eyes; Pterygium of both eyes 06/18/2024 Travel 06/13/2024 Refill [facility] [address] [place], [place] [id number] Cristine Silva RN Anxiety 06/13/2024 Telephone [facility] [address] [place] [address] Alondra Schneider ANP Med Refill 06/10/2024 Refill [facility] [address] [place] [phone] Alondra Schneider ANP Chronic bilateral low back pain without sciatica 06/04/2024 11:00 AM EDT Clinical Support [facility] [address] [place] [address] Cristine Silva RN Upper back pain on left side (Primary Dx); detention (current) use of opiate analgesic 06/04/2024 Travel 05/17/2024 10:00 AM EDT Office Visit [facility] [address] [place] [address] WanderRivera, Indira, DDS Teeth missing (Primary Dx) 05/15/2024 Refill [facility] [address] [place] [address] Cristine Silva RN Anxiety 05/15/2024 Telephone [facility] [address] [place] [phone] Alondra Schneider ANP Med Refill 05/09/2024 Refill [facility] [address] [place] [phone] Alondra Schneider ANP Chronic bilateral low back pain without sciatica 05/08/2024 Telephone [facility] [address] [place] [phone] Rosalina Pagan MD 05/08/2024 Travel 05/07/2024 11:00 AM EDT Office Visit [address] [address] Corinna Truong FNP Degeneration of intervertebral disc of lumbar region with discogenic back pain and lower extremity pain (Primary Dx); Long-term current use of opiate analgesic 05/07/2024 Travel 05/03/2024 2:40 PM EDT Office Visit [facility] [address] [place] [phone] Rosalina Pagan MD Acute pain of left shoulder (Primary Dx) 05/01/2024 3:20 PM EDT Office Visit [facility] [address] [place] [phone] Mauricio Waller MD Upper back pain on left side (Primary Dx); Essential hypertension 04/24/2024 Travel 04/24/2024 Telephone [facility] [address] [place] [address] Cristine Silva RN 04/15/2024 Refill [facility] [address] [place] [address] Cristine Silva, RONA Anxiety 04/12/2024 Telephone [facility] [address] [place] [phone] Alondra Schneider ANP Med Refill 04/08/2024 Refill [facility] [address] [place] [address] Alondra Schneider ANP Chronic bilateral low back pain without sciatica from Last 3 Months Immunizations Immunization Administration Dates Next Due Influenza injectable quadrivalent preservative f ree 10/24/2022 Social History Tobacco Use Types Packs/Day Years Used Date Smoking Tobacco: Never Passive Smoke Exposure: Never Smokeless Tobacco: Never Tobacco Cessation:Counseling Given: Not Answered Alcohol Use Standard Drinks/Week Comments Never 0 [...] not to disclose 2021 10:39 AM EDT Last Filed Vital Signs Vital Sign Reading Time Taken Comments Blood Pressure 143/82 07/02/2024 10:30 AM EDT Pulse 78 07/02/2024 10:30 AM EDT Temperature 36.2 ??C (97.2 ??F) 07/02/2024 10:30 AM E DT Respiratory Rate 20 07/02/2024 10:30 AM EDT Oxygen Saturation 97% 07/02/2024 10:30 AM EDT Inhaled Oxygen Concentration - - Weight 75.3 kg (166 lb) 07/02/2024 10:30 AM EDT Height 154.9 cm (5' 1 ) 07/02/2024 10:30 AM EDT Body Mass Index 31.37 07/02/2024 10:30 AM EDT Plan of Treatment Upcoming Encounters Date Type Department Care Team (Late st Contact Info) Description 08/06/2024 11:00 AM EDT Office Visit [facility] [address] [place] [phone] Health Maintenance Due Date Last Done Comments CT Colonography 1959 Colonoscopy 1959 Colorectal Cancer Screening 1960 Dental Prophylaxis 1959 Dental X-Ray: Bitewings 1959 FIT DNA/Cologuard 1959 FIT 1959 FOBT 1960 HIV Screening 1960 Lipid Panel 1959 Sigmoidoscopy 1959 Disability Screening 1959 Alcohol/Substance Use Screening 1971 Hepatitis C Screening 12/25/1977 DTaP/Tdap/Td Vaccines (1 - Tdap) 12/25/1978 Pap Smear 12/25/1980 Cervical Cancer Screening 12/25/1989 HPV/Cotest 12/25/1989 Pneumococcal Vaccine: 50+ Years (1 of 1 - PCV) 12/25/2009 Zoster Vaccines (1 of 2) 12/25/2009 COVID-19 Vaccine (1 - 2023-2 5 season) 2023 Influenza Vaccine (#1) 2023 10/24/2022 Mammogram 11/05/2023 11/04/2022 SDOH Screening 11/16/2023 11/15/2022 Depression Screening 01/19/2024 01/18/2023, 01/18/2023 Dental Oral Exam 04/12/2024 10/10/2023 Tobacco Screening 07/02/2025 07/02/2024 Dental X-Ray: Full Mouth 10/10/2026 10/10/2023 RSV Patients and Patients Aged 60 years or older (1 - 1-dose 75+ series) 12/25/2034 HIB Vaccines Aged Out No longer eligi ble based on patient's age to complete this topic HPV Vaccines Aged Out No longer eligi ble based on patient's age to complete this topic Hepatitis A Vaccines Aged Out No long er eligible based on patient's age to complete this topic Hepatitis B Vaccines Aged Out No long er eligible based on patient's age to complete this topic IPV Vaccines Aged Out No longer eligi ble based on patient's age to complete this topic Meningococcal B Vaccine Aged Out No l onger eligible based on patient's age to complete this topic Meningococcal Vaccine Aged Out No aiyana danilo eligible based on patient's age to complete this topic RSV under 20 months Aged Out No longe r eligible based on patient's age to complete this topic Rotavirus Vaccines Aged Out No longer eligible based on patient's age to complete this topic Procedures Procedure Name Priority Date/Time Associated Diagnosis Comments XR CHEST 2 VIEWS Routine 07/02/2024 11:3 6 AM EDT Chest wall pain ECG 12-LEAD Routine 07/02/2024 10:50 AM EDT Epigastric pain 27 EXTRACTION, ERUPTED TOOTH REQ REMOVAL OF BONE AND/OR SECTIONING OF TOOTH Routine 06/28/2024 10:30 AM EDT 22 EXTRACTION, ERUPTED TOOTH REQ REMOVAL OF BONE AND/OR SECTIONING OF TOOTH Routine 06/28/2024 10:30 AM EDT CASE PRESENTATION, DETAILED AND EXTENSIVE TREATMENT PLANNING Routine 06/28/2024 10:30 AM EDT 26 EXTRACTION, ERUPTED TOOTH OR EXPOSED ROOT (ELEVATION/FORCEPS REMOVAL) Routine 06/28/2024 10:30 AM EDT 23 EXTRACTION, ERUPTED TOOTH OR EXPOSED ROOT (ELEVATION/FORCEPS REMOVAL) Routine 06/28/2024 10:30 AM EDT POCT ALICJA-14 URINE DRUG SCREEN Routine 06/04/2024 1:32 PM EDT 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 analgesic Upper back pain on left side CASE PRESENTATION, DETAILED AND EXTENSIVE TREATMENT PLANNING Routine 05/17/2024 10:00 AM EDT INTRAORAL - PERIAPICAL FIRST RADIOGRAPHIC IMAGE Routine 05/17/2024 10:00 AM EDT LIMITED ORAL EVALUATION - PROBLEM FOCUSED Routine 05/17/2024 10:00 AM EDT POCT ALICJA-14 URINE DRUG SCREEN Routine 05/07/2024 1:53 PM EDT Degeneration of intervertebral disc of lumbar region with discogenic back pain and lower extremity pain Long-term current use of opiate analgesic XR SHOULDER 2+ VIEWS LEFT Routine 05/03/2024 3:06 PM EDT Acute pain of left shoulder PANORAMIC RADIOGRAPHIC IMAGE Routine 10/10/2023 9:00 AM EDT COMPREHENSIVE ORAL EVALUATION - NEW OR ESTABLISHED PATIENT Routine 10/10/2023 9:00 AM EDT BI MAMMOGRAM SCREENING TOMOSYNTHESIS BILATERAL Routine 11/04/2022 9:00 AM EDT from Last 3 Months or Most Recently Relevant to Health Maintenance Results * XR Chest 2 Views (07/02/2024 11:36 AM EDT) Anatomical Region Laterality Modality Chest Radiographic Jessika ging 07/02/2024 11:3 6 AM EDT Narrative 07/02/2024 12:29 PM EDT ?[facility] ?[address] ?[place] [address] ?XRay Report ? Signed ? Patient: Rosalina Correia ?MR#: ?? [id number] ? : 1960 ?Acct:[id number] ? Age/Sex: 63 / F ?ADM Date: //25 ? Loc: HO.HHCX ? Attending Dr: Dalila Raymond MD ? Ordering Physician: Dalila Raymond MD ?? Date of Service: 07/02/24 ?? Procedure(s): XR chest 2V ?? Accession Number(s): [id number] ? cc: Dalila Raymond MD ? EXAMINATION: ?? XR CHEST ? CLINICAL INFORMATION: ?? pain at rib under right breast ? COMPARISON: ?? May 05, 2024. ? TECHNIQUE: ?? 2 views of the chest were obtained. ? FINDINGS: ?? No consolidation pleural effusion or pneumothorax. ?? No hyperinflation. ?? Cardiomediastinal silhouette size is normal. ?? Calcified plaque aortic arch. ?? Mild multilevel thoracic and upper lumbar spondylosis. ?? Calcifications in the abdominal aorta. Patient's large body ?? habitus/obesity. ? XR/XR chest 2V ?? IMPRESSION: ?? No acute airspace disease ? Electronically signed by: ??Cash Lei MD ??07/02/2024 12:27 PM ?? EDT RP ? Dictated By: ?Cash Stacy MD ? Signed By: ?<Electronically signed by Cash Perez MD in OV> ? 07/02/24 1227 ? DD/ 1136 ? TD/TT: 07/02/24 1202 ? Web Site Administrator: ? Procedure Note Donotrobyinterpreter, Image - 07/02/[address] [address] XRay Report Signed Patient: Rosalina Correia EMR#: [id number] : 1960Acct:[id number] Age/Sex: 63 / FADM Date: 07/02/24 Loc: HO.HHCX Attending Dr: Dalila Raymond MD Ordering Physician: Dalila Raymond MD Date of Service: 07/02/24 Procedure(s): XR chest 2V Accession Number(s): [id number] cc: Dalila Raymond MD EXAMINATION: XR CHEST CLINICAL INFORMATION: pain at rib under right breast COMPARISON: May 05, 2024. TECHNIQUE: 2 views of the chest were obtained. FINDINGS: No consolidation pleural effusion or pneumothorax. No hyperinflation. Cardiomediastinal silhouette size is normal. Calcified plaque aortic arch. Mild multilevel thoracic and upper lumbar spondylosis. Calcifications in the abdominal aorta. Patient's large body habitus/obesity. XR/XR chest 2V IMPRESSION: No acute airspace disease Electronically signed by: Cash Lei MD 07/02/2024 12:27 PM EDT Dictated By: Cash Stacy MD Signed By: <Electronically signed by Cash Perez MDin OV> 07/02/24 1227 DD/ 1136 TD/TT: 07/02/24 1202 Web Site Administrator: us Dalila Raymond MD IMG XR PROCEDURES Final Re sult * ECG 12 lead (07/02/2024 10:50 AM EDT) Narrative Dalila Raymond MD - 07/02/2024 10:50 AM EDT NSR 732 bpm us Dalila Raymond MD ECG ORDERABLES Final Resu lt * POCT ALICJA-14 Urine Drug Screen (06/04/2024 1:32 PM EDT) Only the most recent of2 resultswithin the time period is included. Benzodiazepines Screen, Urine Positive TCA, Urine Positive Urine Urine specimen obtained by clean catch procedure / Unknown 06/04/2024 1:32 PM EDT Narrative Cristine Silva RN - 06/04/2024 1:32 PM EDT .Lot# [id number] Exp: 12-13-25 us Alondra Schneider ANP POINT OF CARE TEST ENTER/EDIT OR DERABLES Final Result * XR Shoulder 2+ Views Left (05/03/2024 3:06 PM EDT) Anatomical Region Laterality Modality Upper Extremities, Shoulder Left Radi ographic Imaging 05/03/2024 3:06 PM EDT Narrative 05/03/2024 4:25 PM EDT ?[facility] ?[address] ?[place] [address] ?XRay Report ? Signed ? Patient: Masood,Roz ?MR#: ?? [id number] ? : 1960 ?Acct:[id number] ? Age/Sex: 63 / F ?ADM Date: 03/21/25 ? Loc: HO.HHCX ? Attending Dr: Rosalina Winchester MD ? Ordering Physician: Rosalina Pagan MD ?? Date of Service: 05/03/24 ?? Procedure(s): XR shoulder LT min 2V ?? Accession Number(s): [id number] ? cc: Rosalina Pagan MD ? EXAMINATION: ?? XR SHOULDER, LEFT ? CLINICAL INFORMATION: ?? acute pain ? COMPARISON: ?? None available. ? TECHNIQUE: ?? AP external rotation, Grashey, scapular Y, and axillary views of the ?? left shoulder. ? FINDINGS: ?? The bones and soft tissues are normal. No fracture. Glenohumeral and ?? acromioclavicular alignment is anatomic with normal joint space. No ?? abnormal soft tissue calcifications. ? XR/XR shoulder LT min 2V ?? IMPRESSION: ?? Unremarkable left shoulder. ? Electronically signed by: ??Cheikh Donald MD ??05/03/2024 04:22 PM EDT RP ? Dictated By: ?Cheikh Donald MD ? Signed By: ?<Electronically signed by Cheikh Donald MD in OV> ?05/03/24 1622 ? DD/ 1506 ? TD/TT: 05/03/24 1605 ? Web Site Administrator: MSM ? Procedure Note Rizwana, Kelle - 05/03/[address] [address] XRay Report Signed Patient: Rosalina Correia EMR#: [id number] : 1960Acct:[id number] Age/Sex: 63 / FADM Date: 05/03/24 Loc: HO.HHCX Attending Dr: Rosalina Winchester MD Ordering Physician: Rosalina Pagan MD Date of Service: 05/03/24 Procedure(s): XR shoulder LT min 2V Accession Number(s): [id number] cc: Rosalina Pagan MD EXAMINATION: XR SHOULDER, LEFT CLINICAL INFORMATION: acute pain COMPARISON: None available. TECHNIQUE: AP external rotation, Grashey, scapular Y, and axillary views of the left shoulder. FINDINGS: The bones and soft tissues are normal. No fracture. Glenohumeral and acromioclavicular alignment is anatomic with normal joint space. No abnormal soft tissue calcifications. XR/XR shoulder LT min 2V IMPRESSION: Unremarkable left shoulder. Electronically signed by: Cheikh Donald MD 05/03/2024 04:22 PM EDT RP Dictated By: Cheikh Donald MD Signed By: <Electronically signed by Cheikh Donald MD in OV> 05/03/24 1622 DD/ 1506 TD/TT: 05/03/24 1605 Web Site Administrator: ZEE us Rosalina Winchester MD IMG XR PROCEDURES Fin al Result * BI Mammogram Screening Tomosynthesis Bilateral (11/04/2022 9:00 AM EDT) Anatomical Region Laterality Modality Breast Bilateral Mammography 11/04/2022 9:00 AM EDT Narrative 11/13/2022 9:28 PM EDT ? [facility] ? [address] ?[place] [address] ? Mammography Report ? Signed ? Patient: Rosalina Correia ?MR#: ?? [id number] ? : 1960 ?Acct:[id number] ? Age/Sex: 61 / F ?ADM Date: 11/04/22 ? Loc: HO.MAMMO ? Attending Dr: Alondra Schneider JOCKEY VALET ? Ordering Physician: JENNIE,ALONDRA JOCKEY VALET ?Results: 1Negative ? Date of Service: 11/04/22 ?Follow Up: 1 Year From Orig ?? inal Mammogram ? Procedure(s): MM tomosynthesis screening BI ?? Accession Number(s): [id number] ? cc: ALONDRA SCHNEIDER NP ? EXAMINATION: ?? MM SCREENING DIGITAL BREAST TOMOSYNTHESIS, BILATERAL ? CLINICAL INFORMATION: ? Screening. Asymptomatic. ? COMPARISON: ?? Mammography: There are no prior studies available for comparison. ? TECHNIQUE: ?? Digital breast tomosynthesis is performed in both the craniocaudal and ?? mediolateral oblique views along with computer-aided detection (CAD). ?? Synthesized 2D images are generated from the tomosynthesis. ? FINDINGS: ?? There are scattered areas of fibroglandular density (ACR BI-RADS breast ?? composition Category b). ? There are no significant masses, abnormal calcifications, or other ?? abnormalities. ?? There is long-standing left nipple inversion which is benign. ? MM/MM tomosynthesis screening BI ?? IMPRESSION: ?? No mammographic evidence of malignancy. ? ASSESSMENT: ? BI-RADS BI-RADS 1 - Negative ? RECOMMENDATION: ?? Routine annual mammography screening. ? 1 year F/U ? This examination should not preclude the clinical evaluation of a ?? suspicious palpable abnormality. ? This patient's information was entered into a reminder system with a ?? target due date for their next mammogram. ? Dictated By: ?Natalia Josue MD ? Signed By: ?<Electronically signed by Natalia Josue MD in OV> ? 11/13/222123 ? DD/ 0900 ? TD/TT: ? Web Site Administrator: ? Procedure Note Kelle Wagoner - 11/13/2022 [facility] [address] [place], [place] [address] Mammography Report Signed Patient: Rosalina Correia EMR#: [id number] : 1960Acct:[id number] Age/Sex: 61 / FADM Date: 11/04/22 Loc: [facility] Attending Dr: Alondra Schneider JOCKEY VALET Ordering Physician: ALONDRA SCHNEIDEResults: 1Negative Date of Service: 11/04/22Follow Up: 1 Year From Orig inal Mammogram Procedure(s): MM tomosynthesis screening BI Accession Number(s): [id number] cc: ALONDRA SCHNEIDER NP EXAMINATION: MM SCREENING DIGITAL BREAST TOMOSYNTHESIS, BILATERAL CLINICAL INFORMATION: Screening. Asymptomatic. COMPARISON: Mammography: There are no prior studies available for comparison. TECHNIQUE: Digital breast tomosynthesis is performed in both the craniocaudal and mediolateral oblique views along with computer-aided detection (CAD). Synthesized 2D images are generated from the tomosynthesis. FINDINGS: There are scattered areas of fibroglandular density (ACR BI-RADS breast composition Category b). There are no significant masses, abnormal calcifications, or other abnormalities. There is long-standing left nipple inversion which is benign. MM/MM tomosynthesis screening BI IMPRESSION: No mammographic evidence of malignancy. ASSESSMENT: BI-RADS BI-RADS 1 - Negative RECOMMENDATION: Routine annual mammography screening. 1 year F/U This examination should not preclude the clinical evaluation of a suspicious palpable abnormality. This patient's information was entered into a reminder system with a target due date for their next mammogram. Dictated By: Natalia Josue MD Signed By: <Electronically signed by Natalia Josue MD in OV> 11/13/222123 DD/ 09 TD/TT: Web Site Administrator: Alondra [place] BI PROCEDURES Edited Result - Final from Last 3 Months or Most Recently Relevant to Health Maintenance Insurance [facility] STANDARD [facility] CARE < 65 DENTAL - [facility] Care Teams Shingle Bolt Cutter Relationship Specialty Start Date End Date Alondra Schneider ANP [address] [place] [address] PCP - General Family Medicine 02/22/21
--- OUTSIDE RECORDS SUMMARY | 2024-07-02 12:49 | XMS_ITS | Encounter Summary ---
Author Organization [facility] Address [address] [facility] [address] [place] [address] Care Team Providers Care Truss Puller Helper Name Role Phone Yadira Chamberlain Primary Care Provider [phone] Encounter Details Date Type Department Care Team (Late Contact Info) Description 05/11/[address] [address] Yadira Chamberlain ANP [address] [place] [address] Social History Tobacco Use Types Packs/Day Years [...] Description 08/06/2024 11:00 AM EDT Office Visit [address] [address] documented as of this encounter Visit Diagnoses Not on filedocumented in this encounter Care Teams Truss Puller Helper Relationship Specialty Start Date End Date Yadira Chamberlain ANP [address] [place] [address] PCP - General Family Medicine 02/22/21 Gia Nino health and safety consultant 11/29/22 02/27/23 documented as of this encounter
--- OUTSIDE RECORDS SUMMARY | 2024-07-02 12:49 | XMS_ITS | Encounter Summary ---
Author Organization [facility] Address [address] [place] [address] [address] [address] Care Team Providers Care School Psychological Examiner Name Role Phone Yadira Chamberlain Primary Care Provider [phone] Reason for Visit * Reason Comments Med Refill Encounter Details Date Type Department Care Team (Late Contact Info) Description 06/21/2022 Refill [facility] [address] [place] [address] Glenis Rico MD [address] [place] [address] Anxiety Social History Tobacco Use Types Packs/Day Years [...] Description 08/06/2024 11:00 AM EDT Office Visit [facility] [address] [place] [address] documented as of this encounter Visit Diagnoses Diagnosis Anxiety Anxiety state, unspecified documented in this encounter Care Teams School Psychological Examiner Relationship Specialty Start Date End Date Yadira Chamberlain ANP [address] [place] [address] PCP - General Family Medicine 02/22/21 Gia Nino RN Care Manager 11/29/22 02/27/23 documented as of this encounter
--- OUTSIDE RECORDS SUMMARY | 2024-07-02 12:49 | XMS_ITS | Encounter Summary ---
Author Organization [employer] Address [address] [facility] 7t [place] [address] Care Team Providers Care Micrographics Services Supervisor Name Role Phone Yadira Chamberlain Primary Care Provider [phone] Reason for Visit * Reason Comments Med Refill Encounter Details Date Type Department Care Team ([facility] st Contact Info) Description 07/17/2023 Refill [facility] [address] [place] [address] Yadira Chamberlain ANP [address] [place] [address] Anxiety Social History Tobacco Use Types Packs/Day [...] Description 08/06/2024 11:00 AM EDT Office Visit [facility] [address] [place] [address] documented as of this encounter Visit Diagnoses Diagnosis Anxiety Anxiety state, unspecified documented in this encounter Additional Health Concerns Assessment Noted Time PHQ-9 Depression Total Score: 8 01/19/20 23 4:02 PM EST documented as of this encounter Care Teams Micrographics Services Supervisor Relationship Specialty Start Date End Date Yadira Chamberlain ANP [address] [place] [address] PCP - General Family Medicine 02/22/21 documented as of this encounter
--- OUTSIDE RECORDS SUMMARY | 2024-07-02 12:49 | XMS_ITS | Encounter Summary ---
Author Organization [employer] Address [address] [facility] 7t [place] [address] Care Team Providers Care Pediatrics Physician Name Role Phone Ydaira Chamberlain Primary Care Provider [phone] Reason for Visit * Reason Onset Date Comments Med Refill 05/15/2024 Encounter Details Date Type Department Care Team ([facility] st Contact Info) Description 05/15/2024 Telephone [facility] [address] [place] [address] Yadira Chamberlain ANP 230 [place] [address] Med Refill Social History Tobacco Use Types Packs/Day Years Used Date Smoking Tobacco: Never Passive Smoke Exposure: Never Smokeless Tobacco: Never Alcohol Use Standard [...] AM EDT documented as of this encounter Miscellaneous Notes * Telephone Encounter - Cherri Zuniga - 05/15/2024 1:47 PM EDT TC from pt requesting medication refill. Medications needing refill : ALPRAZolam (Xanax) 1 MG tablet To be sent to: [facility] - [place], [place] - [address] [place] [address] documented in this encounter Plan of Treatment Upcoming Encounters Date Type Department Care Team (Late st Contact Info) Description 08/06/2024 11:00 AM EDT Office Visit [facility] [address] [place] [address] documented as of this encounter Visit Diagnoses Not on filedocumented in this encounter Additional Health Concerns Assessment Noted Time PHQ-9 Depression Total Score: 8 01/19/20 23 4:02 PM EST documented as of this encounter Care Teams Pediatrics Physician Relationship Specialty Start Date End Date Yadira Chamberlain ANP 230 [place] [address] PCP - General Family Medicine 02/22/21 documented as of this encounter
--- OUTSIDE RECORDS SUMMARY | 2024-07-02 12:49 | XMS_ITS | Encounter Summary ---
Author Organization [employer] Address [address] [facility] 7t [place] [address] Care Team Providers Care Wrapper Counter Name Role Phone Yadira Chamberlain Primary Care Provider [phone] Reason for Visit * Reason Onset Date Comments Nurse Triage 07/24/2023 Encounter Details Date Type Department Care Team ([facility] st Contact Info) Description 07/24/2023 Telephone [facility] [address] [place] [address] Yadira Chamberlain ANP 230 [place] [address] Nurse Triage Social History Tobacco Use Types Packs/Day Years [...] encounter Miscellaneous Notes * Telephone Encounter - Lizz Miller RN - 07/24/2023 2:43 PM EDT Triage call with [employer] Engine Repairer [place] [id number]. Pt reports right shoulder pain for several weeks. Pt denies injury. Pt reports shoulder pain makes lifting right hand difficult. Pt is able to lift a cup off the counter but, is unable to lift anything higher than counter level. Pt denies numbness, redness swelling. Pt reports this is interfering with daily activities. Pt is advised to come to [facility] which is open till 8pm this evening. Pt agrees with disposition will come to [facility] around 5-6pm. Unableto verify insurance due to computer error. Protocol Used: Shoulder Pain (Adult) Protocol-Based Disposition: See in Office or Video Visit Today or Tomorrow Video visit not offered Positive Triage Question: * Patient wants to be seen * All higher-acuity triage questions were negative Care Advice Discussed: * Reassurance and Education - Shoulder Pain * Pain Medicines * Pain Medicines - Extra Notes and Warnings * Reasons To Call Back - Chest pain or difficulty breathing occurs - Moderate pain (e.g., interferes with normal activities) lasts over 3 days - Mild pain lasts over 7 days - You become worse * Use a Cold Pack for Pain * Telephone Encounter - Xiomara Sampson - 07/24/2023 1:04 PM EDT Symptoms: Shoulder Pain - Not From Injury, Numbness Outcome: Schedule an urgent appointment (within 1 hour) or talk to a nurse or provider soon Reason: Severe pain now The caller accepted this outcome Kenyan speaker documented in this encounter Plan of Treatment Upcoming Encounters Date Type Department Care Team (Late st Contact Info) Description 08/06/2024 11:00 AM EDT Office Visit [facility] [address] [place] [address] documented as of this encounter Visit Diagnoses Not on filedocumented in this encounter Additional Health Concerns Assessment Noted Time PHQ-9 Depression Total Score: 8 01/19/20 23 4:02 PM EST documented as of this encounter Care Teams Wrapper Counter Relationship Specialty Start Date End Date Yadira Chamberlain ANP [address] [place] [address] PCP - General Family Medicine 02/22/21 documented as of this encounter
--- OUTSIDE RECORDS SUMMARY | 2024-07-02 12:49 | XMS_ITS | Encounter Summary ---
Author Organization [employer] Address [address] [facility] 7t [place] [address] Care Team Providers Care Engagement Lead Name Role Phone Yadira Chamberlain Primary Care Provider [phone] Reason for Visit * Reason Onset Date Comments Med Refill 09/12/2023 Encounter Details Date Type Department Care Team ([facility] st Contact Info) Description 09/12/2023 Telephone [facility] 230 [place] [address] Yadira Chamberlain ANP 230 [place] [address] Med Refill Social History Tobacco Use Types [...] encounter Miscellaneous Notes * Telephone Encounter - Miguelito Hobbs - 09/12/2023 1:53 PM EDT TC from pt requesting medication refill. Medications needing refill: ALPRAZolam (Xanax) 1 MG tablet To be sent to: [facility] - [place], [place] - [address] [place] [address] documented in this encounter Plan of Treatment Upcoming Encounters Date Type Department Care Team (Late st Contact Info) Description 08/06/2024 11:00 AM EDT Office Visit [facility] 230 [place] [address] documented as of this encounter Visit Diagnoses Not on filedocumented in this encounter Additional Health Concerns Assessment Noted Time PHQ-9 Depression Total Score: 8 01/19/20 23 4:02 PM EST documented as of this encounter Care Teams Engagement Lead Relationship Specialty Start Date End Date Yadira Chamberlain ANP 230 [place] [address] PCP - General Family Medicine 02/22/21 documented as of this encounter
--- OUTSIDE RECORDS SUMMARY | 2024-07-02 12:49 | XMS_ITS | Encounter Summary ---
Author Organization [employer] Address [address] [place] [address] 7[address] [place] [address] Care Team Providers Care Coat Checker Name Role Phone Yadira Chamberlain Primary Care Provider [phone] Reason for Visit * Reason Comments Med Refill Encounter Details Date Type Department Care Team ([facility] Contact Info) Description 02/15/2022 Refill [facility] [address] [place] [address] Yadira Chamberlain ANP 230 [place] [address] Chronic bilateral low back pain without sciatica Social History Tobacco Use Types Packs/Day Years Used Date Smoking Tobacco: Never Assessed Comments Unknown Sex and Gender Information Value [...] Description 08/06/2024 11:00 AM EDT Office Visit [facility] 230 [place], [place] [id number] documented as of this encounter Visit Diagnoses Diagnosis Chronic bilateral low back pain without sciatica documented in this encounter Care Teams Coat Checker Relationship Specialty Start Date End Date Yadira Chamberlain ANP [address] [place] [address] PCP - General Family Medicine 02/22/21 Gia Nino RN Care Manager 11/29/22 02/27/23 documented as of this encounter
--- OUTSIDE RECORDS SUMMARY | 2024-07-02 12:49 | XMS_ITS | Encounter Summary ---
Author Organization [employer] Address [address] [facility] 7t [place] [address] Care Team Providers Care Faculty Dean Name Role Phone Yadira Chamberlain Primary Care Provider [phone] Reason for Visit * Reason Comments Med Refill Encounter Details Date Type Department Care Team ([facility] st Contact Info) Description 07/26/2023 Refill [facility] [address] [place] [address] Yadira Chamberlain ANP [address] [place] [address] Chronic bilateral low back pain without sciatica [...] Description 08/06/2024 11:00 AM EDT Office Visit [facility] [address] [place] [address] documented as of this encounter Visit Diagnoses Diagnosis Chronic bilateral low back pain without sciatica documented in this encounter Additional Health Concerns Assessment Noted Time PHQ-9 Depression Total Score: 8 01/19/20 23 4:02 PM EST documented as of this encounter Care Teams Faculty Dean Relationship Specialty Start Date End Date Yadira Chamberlain ANP [address] [place] [address] PCP - General Family Medicine 02/22/21 documented as of this encounter
--- OUTSIDE RECORDS SUMMARY | 2024-07-02 12:49 | XMS_ITS | Encounter Summary ---
Author Organization [employer] Address [address] [facility] 7t [place] [address] Care Team Providers Care Machine Filler Servicer Name Role Phone Yadira Chamberlain Primary Care Provider [phone] Reason for Visit * Reason Onset Date Comments Med Refill 08/22/2023 Encounter Details Date Type Department Care Team ([facility] st Contact Info) Description 08/22/2023 Telephone [facility] [address] [place] [address] Yadira Chamberlain ANP [address] [place] [address] Med Refill Social History Tobacco Use Types [...] * Telephone Encounter - Miguelito Hobbs - 08/22/2023 3:35 PM EDT TC from pt requesting medication refill. Medications needing refill: traMADol (Ultram) 50 MG tablet To be sent to: [facility] documented in this encounter Plan of Treatment Upcoming Encounters Date Type Department Care Team (Late st Contact Info) Description 08/06/2024 11:00 AM EDT Office Visit [facility] [address] [place] [address] documented as of this encounter Visit Diagnoses Not on filedocumented in this encounter Additional Health Concerns Assessment Noted Time PHQ-9 Depression Total Score: 8 01/19/20 23 4:02 PM EST documented as of this encounter Care Teams Machine Filler Servicer Relationship Specialty Start Date End Date Yadira Chamberlain ANP [address] [place] [address] PCP - General Family Medicine 02/22/21 documented as of this encounter
--- OUTSIDE RECORDS SUMMARY | 2024-07-02 12:49 | XMS_ITS | Encounter Summary ---
Author Organization [employer] Address [address] [facility] 7t [place] [address] Care Team Providers Care Mri Technician Name Role Phone Yadira Chamberlain Primary Care Provider [phone] Reason for Visit * Reason Onset Date Comments Med Refill 06/13/2024 Encounter Details Date Type Department Care Team ([facility] st Contact Info) Description 06/13/2024 Telephone [facility] 230 [place] [address] Yadira Chamberlain ANP [address] [place] [address] Med Refill Social History Tobacco Use Types [...] encounter Miscellaneous Notes * Telephone Encounter - Tami Abrams - 06/13/2024 3:49 PM EDT TC from pt requesting medication refill. Medications needing refill : ALPRAZolam (Xanax) 1 MG tablet To be sent to: [facility] documented in this encounter Plan of Treatment Upcoming Encounters Date Type Department Care Team (Late st Contact Info) Description 08/06/2024 11:00 AM EDT Office Visit [facility] [address] [place] [address] documented as of this encounter Visit Diagnoses Not on filedocumented in this encounter Additional Health Concerns Assessment Noted Time PHQ-9 Depression Total Score: 8 01/19/20 23 4:02 PM EST documented as of this encounter Care Teams Mri Technician Relationship Specialty Start Date End Date Yadira Chamberlain ANP [address] [place] [address] PCP - General Family Medicine 02/22/21 documented as of this encounter
--- OUTSIDE RECORDS SUMMARY | 2024-07-02 12:49 | XMS_ITS | Encounter Summary ---
Author Organization [employer] Address [address] [facility] 7t [place] [address] Care Team Providers Care Validation Scientist Name Role Phone Yadira Chamberlain Primary Care Provider [phone] Reason for Visit * Reason Onset Date Comments Med Refill 07/11/2023 Encounter Details Date Type Department Care Team ([facility] st Contact Info) Description 07/11/2023 Telephone [facility]INE 230 [place] [address] Yadira Chamberlain ANP 230 [place] [address] Med Refill Social History Tobacco Use Types [...] AM EDT documented as of this encounter Functional Status * Over the last 2 weeks, how often have you been bothered by any of the following problems? Question Answer Date of Assessment Author Feeling nervous, anxious, or on edge 2 07/11/2023 1:20 PM EDT Cristine Silva RN Not being able to stop or co ntrol worrying 3 07/11/2023 1:20 PM EDT Cristine Silva RN Worrying too much about diff erent things 3 07/11/2023 1:20 PM EDT Cristine Silva RN Trouble relaxing 2 07/11/2023 1:20 PM EDT Cristine Montoya RN Being so restless that it is hard to sit still 3 07/11/2023 1:20 PM EDT Cristine Silva RN Becoming easily annoyed or irritable 1 07/11/2023 1:20 PM EDT Cristine Silva RN Feeling afraid as if somethi ng awful might happen 3 07/11/2023 1:20 PM EDT Cristine Silva RN MARY-7 Total Score 17 07/11/2023 1:20 PM EDT Cristine Silva RN documented as of this encounter Miscellaneous Notes * Telephone Encounter - Xiomara Sampson - 07/11/2023 8:35 AM EDT TC from pt requesting medication refill. Medications needing refill : traMADol (Ultram) 50 MG tablet To be sent to: [facility] - [place], [place] - [address] [facility] documented in this encounter Plan of Treatment Upcoming Encounters Date Type Department Care Team (Late st Contact Info) Description 08/06/2024 11:00 AM EDT Office Visit [facility] [address] [place] [address] documented as of this encounter Visit Diagnoses Not on filedocumented in this encounter Additional Health Concerns Assessment Noted Time PHQ-9 Depression Total Score: 8 01/19/20 23 4:02 PM EST documented as of this encounter Care Teams Validation Scientist Relationship Specialty Start Date End Date Yadira Chamberlain ANP [address] [facility] [address] PCP - General Family Medicine 02/22/21 documented as of this encounter
--- OUTSIDE RECORDS SUMMARY | 2024-07-02 12:49 | XMS_ITS | Encounter Summary ---
Author Organization [employer] Address [address] [facility] 7t [place] [address] Care Team Providers Care Boiler Riveter Name Role Phone Yadira Chamberlain Primary Care Provider [phone] Reason for Visit * Reason Onset Date Comments Med Refill 08/15/2023 Encounter Details Date Type Department Care Team ([facility] st Contact Info) Description 08/15/2023 Telephone [facility] MEDICINE [address] [place] [address] Yadira Chamberlain ANP [address] [place] [address] Med Refill Social History Tobacco Use Types [...] * Telephone Encounter - Miguelito Hobbs - 08/15/2023 2:28 PM EDT TC from pt requesting medication refill. Medications needing refill: ALPRAZolam (Xanax) 1 MG tablet To be sent to: [facility] Pharmacy documented in this encounter Plan of Treatment Upcoming Encounters Date Type Department Care Team (Late st Contact Info) Description 08/06/2024 11:00 AM EDT Office Visit [facility] MEDICINE [address] [place] [address] documented as of this encounter Visit Diagnoses Not on filedocumented in this encounter Additional Health Concerns Assessment Noted Time PHQ-9 Depression Total Score: 8 01/19/20 23 4:02 PM EST documented as of this encounter Care Teams Boiler Riveter Relationship Specialty Start Date End Date Yadira Chamberlain ANP [address] [place] [address] PCP - General Family Medicine 02/22/21 documented as of this encounter
--- OUTSIDE RECORDS SUMMARY | 2024-07-02 12:49 | XMS_ITS | Encounter Summary ---
Author Organization [employer] [facility] Address [address] [place] [address] [address] [place] [address] Care Team Providers Care Cargo Services Coordinator Name Role Phone Yadira Chamberlain Primary Care Provider [phone] Reason for Visit * Reason Onset Date Comments Med Refill 02/10/2022 Encounter Details Date Type Department Care Team (Late Contact Info) Description 02/10/[address] [address] Yadira Chamberlain ANP [address] [place] [id number] Chronic bilateral low back pain without sciatica [...] encounter Miscellaneous Notes * Telephone Encounter - Aric Dougherty - 02/10/2022 9:56 AM EST Tc from pt requesting med refill ( Tramadol 50 mg ) documented in this encounter Plan of Treatment Upcoming Encounters Date Type Department Care Team (Late st Contact Info) Description 08/06/2024 11:00 AM EDT Office Visit [address] [address] documented as of this encounter Visit Diagnoses Diagnosis Chronic bilateral low back pain without sciatica documented in this encounter Care Teams Cargo Services Coordinator Relationship Specialty Start Date End Date Yadira Chamberlain ANP [address] [place] [address] PCP - General Family Medicine 02/22/21 Gia Nino software designer 11/29/22 02/27/23 documented as of this encounter
--- OUTSIDE RECORDS SUMMARY | 2024-07-02 12:50 | XMS_ITS | Encounter Summary ---
Author Organization [employer] Address [address] [facility] 7t [place] [address] Care Team Providers Care Semiautomatic Stitcher Operator Name Role Phone Yadira Chamberlain Primary Care Provider [phone] Reason for Visit * Reason Onset Date Comments Med Refill 01/10/2024 Encounter Details Date Type Department Care Team ([facility] st Contact Info) Description 01/10/2024 Telephone [facility] MEDICINE [address] [place] [address] Yadira Chamberlain ANP [address] [place] [address] Med Refill Social History Tobacco Use Types [...] encounter Miscellaneous Notes * Telephone Encounter - Anabelle Moran - 01/10/2024 2:13 PM EST TC from pt requesting medication refill. Medications needing refill : traMADol (Ultram) 50 MG tablet To be sent to: [facility] documented in this encounter Plan of Treatment Upcoming Encounters Date Type Department Care Team (Late st Contact Info) Description 08/06/2024 11:00 AM EDT Office Visit [facility] MEDICINE [address] [place] [address] documented as of this encounter Visit Diagnoses Not on filedocumented in this encounter Additional Health Concerns Assessment Noted Time PHQ-9 Depression Total Score: 8 01/19/20 23 4:02 PM EST documented as of this encounter Care Teams Semiautomatic Stitcher Operator Relationship Specialty Start Date End Date Yadira Chamberlain ANP [address] [place] [address] PCP - General Family Medicine 02/22/21 documented as of this encounter
--- OUTSIDE RECORDS SUMMARY | 2024-07-02 12:50 | XMS_ITS | Encounter Summary ---
Author Organization [employer] Address [address] [facility] 7t [place] [address] Care Team Providers Care Print Shop Assistant Name Role Phone Yadira Chamberlain Primary Care Provider [phone] Reason for Visit * Reason Onset Date Comments Med Refill 04/12/2024 Encounter Details Date Type Department Care Team ([facility] st Contact Info) Description 04/12/2024 Telephone [facility] MEDICINE [address] [place] [address] Yadira Chamberlain ANP [address] [place] [address] Med Refill Social History Tobacco Use Types [...] * Telephone Encounter - Tami Abrams - 04/12/2024 2:57 PM EST TC from pt requesting medication refill. Medications needing refill : ALPRAZolam (Xanax) 1 MG tablet To be sent to: [facility] Pharmacy documented in this encounter Plan of Treatment Upcoming Encounters Date Type Department Care Team (Late st Contact Info) Description 08/06/2024 11:00 AM EDT Office Visit [facility] MEDICINE [address] [place] [address] documented as of this encounter Visit Diagnoses Not on filedocumented in this encounter Additional Health Concerns Assessment Noted Time PHQ-9 Depression Total Score: 8 01/19/20 23 4:02 PM EST documented as of this encounter Care Teams Print Shop Assistant Relationship Specialty Start Date End Date Yadira Chamberlain ANP [address] [place] [address] PCP - General Family Medicine 02/22/21 documented as of this encounter
--- OUTSIDE RECORDS SUMMARY | 2024-07-02 12:50 | XMS_ITS | Encounter Summary ---
Author Organization [employer] Address [address] [facility] 7t [place] [address] Care Team Providers Care Corrections Cadet Name Role Phone Yadira Chamberlain Primary Care Provider [phone] Reason for Visit * Reason Onset Date Comments Med Refill 12/04/2023 Encounter Details Date Type Department Care Team ([facility] st Contact Info) Description 12/04/2023 Telephone [facility] MEDICINE [address] [place] [address] Yadira Chamberlain ANP [address] [place] [address] Med Refill Social History Tobacco Use Types [...] * Telephone Encounter - Cherri Zuniga - 12/04/2023 12:36 PM EDT TC from pt requesting medication refill. Medications needing refill : traMADol (Ultram) 50 MG tablet To be sent to: [facility] - [place], [place] - [address] [place] [address] documented in this encounter Plan of Treatment Upcoming Encounters Date Type Department Care Team (Late st Contact Info) Description 08/06/2024 11:00 AM EDT Office Visit [facility] MEDICINE [address] [place] [address] documented as of this encounter Visit Diagnoses Not on filedocumented in this encounter Additional Health Concerns Assessment Noted Time PHQ-9 Depression Total Score: 8 01/19/20 23 4:02 PM EST documented as of this encounter Care Teams Corrections Cadet Relationship Specialty Start Date End Date Yadira Chamberlain ANP [address] [place] [address] PCP - General Family Medicine 02/22/21 documented as of this encounter
--- OUTSIDE RECORDS SUMMARY | 2024-07-02 12:50 | XMS_ITS | Encounter Summary ---
Author Organization [employer] Address [address] [facility] 7t [place] [address] Care Team Providers Care Radio Control Crane Operator Name Role Phone Yadira Chamberlain ANP Primary Care Provider [phone] Reason for Visit * Reason Onset Date Comments PA 09/19/2022 Encounter Details Date Type Department Care Team ([facility] st Contact Info) Description 09/19/2022 Telephone [facility] MEDICINE [address] [place] [address] Yadira Chamberlain ANP [address] [place] [address] PA Social History Tobacco Use Types Packs/Day Years Used Date Smoking Tobacco: Never Smokeless Tobacco: Never Alcohol Use Standard Drinks/Week Comments Never 0 (1 standard drink = 0.6 oz pur e alcohol) Depression Answer Date Recorded Patient Health Questionnaire-9 Score 6 09/06/2022 Depression Answer Date Recorded Patient Health Questionnaire-2 Score 0 09/06/2022 Comments Unknown Sex and Gender Information Value Date Recorded Sex Assigned at Female 12/13/2021 10:39 AM EDT Legal Sex Female 10:39 AM EDT Gender Identity Female 12/13/2021 10:39 AM EDT Sexual Orientation Choose not to disclose 2021 10:39 AM EDT documented as of this encounter Miscellaneous Notes * Telephone Encounter - Melissa Almanza LPN - 09/20/2022 10:40 AM EDT Please read message below and advise * Telephone Encounter - Cherri Zuniga - 09/19/2022 12:44 PM EDT Tc from pt calling to inform medication temazepam (Restoril) 15 MG capsule needs a PA. documented in this encounter Plan of Treatment Upcoming Encounters Date Type Department Care Team (Late st Contact Info) Description 08/06/2024 11:00 AM EDT Office Visit [facility] MEDICINE [address] [place] [address] documented as of this encounter Visit Diagnoses Not on filedocumented in this encounter Additional Health Concerns Assessment Noted Time PHQ-9 Depression Total Score: 6 09/07/19 23 2:35 PM EDT documented as of this encounter Care Teams Radio Control Crane Operator Relationship Specialty Start Date End Date Yadira Chamberlain ANP [address] [place] [address] PCP - General Family Medicine 02/22/21 Gia Nino desktop operator 11/29/22 02/27/23 documented as of this encounter
--- OUTSIDE RECORDS SUMMARY | 2024-07-02 12:50 | XMS_ITS | Encounter Summary ---
Author Organization [employer] Address [address] [facility] 7t [place] [address] Care Team Providers Care Tank Car Repairer Name Role Phone Yadira Chamberlain Primary Care Provider Reason for Visit * Reason Comments Extraction Encounter Details Date Type Department Care Team ([facility] st Contact Info) Description 06/28/2024 10:30 AM EDT Office Visit [facility] ADULT DENTAL [address] [place], [place] [phone] Edward Milelr DDS [address] [place], [place] [phone] Periodontal disease (Primary Dx) Social History Tobacco Use Types Packs/Day Years [...] AM EDT documented as of this encounter Last Filed Vital Signs Vital Sign Reading Time Taken Comments Blood Pressure 132/76 06/28/2024 9:45 AM EDT Pulse 68 06/28/2024 9:45 AM EDT Temperature - - Respiratory Rate - - Oxygen Saturation - - Inhaled Oxygen Concentration - - Weight - - Height - - Body Mass Index - - documented in this encounter Progress Notes * Edward Miller DDS - 06/28/2024 10:30 AM EDT Patient ID: Rosalina Perez is a 63 y.o. female. Time Out: Timeout Date: 06/28/24, Timeout Time: 0943 (ext on tooth# 22 , 23 , 26 , 27) Location: [facility] Tooth: Mandible, #22, #23, #26, and #27 Procedure: Extraction Verified the above with patient, hygiene assistant, and provider. Confirmed via patient's chart, intraorally and by radiographs. Electronic Equipment Set Up Operator: not applicable Chief Complaint Patient presents with Extraction Medical Hx: Vitals: Blood pressure 132/76, pulse 68. Medical History[1] Medications: Encounter Medications[2] Consent Obtained: The risks, benefits, indications, potential complications, and alternatives were explained to the patient and informed consent was obtained with good understanding. Treatment Provided: Dental procedures in this visit D7140 - EXTRACTION, ERUPTED TOOTH OR EXPOSED ROOT (ELEVATION/FORCEPS REMOVAL) 23 (Completed) Service provider: Edward Miller DDS Billing provider: Edward Miller DDS D7140 - EXTRACTION, ERUPTED TOOTH OR EXPOSED ROOT (ELEVATION/FORCEPS REMOVAL) 26 (Completed) Service provider: SRIKANTH Granadosing provider: Edward Miller DDS D9450 - CASE PRESENTATION, DETAILED AND EXTENSIVE TREATMENT PLANNING (Completed) Service provider: Edward Miller DDS Billing provider: Edward Miller DDS D7210 - EXTRACTION, ERUPTED TOOTH REQ REMOVAL OF BONE AND/OR SECTIONING OF TOOTH 22 (Completed) Service provider: Edward Miller DDS Billing provider: Edward Miller DDS D7210 - EXTRACTION, ERUPTED TOOTH REQ REMOVAL OF BONE AND/OR SECTIONING OF TOOTH 27 (Completed) Service provider: Edward Miller DDS Billing provider: Edward Miller DDS Diagnosis: Periodontal disease Topical: 20% Benzocaine Anesthesia: 2% Lidocaine (Xylocaine) w/ 1:100,000 epinephrine Number of Cartridges: 2 Injection Type: Inferior alveolar nerve block, Long buccal nerve block, and Intrapapillary injection Confirmed profound anesthesia. Pharyngeal curtain and bite block placed. Removed tooth with elevators and forceps. Apices intact. Surgical Extraction: Yes, #22,23,26,27 Using surgical bur # 151 L on both canines only (very long roots). Socket curetted & irrigated with sterile water. Compressed alveolar bone. Sutures: Chromic Gut All adjacent teeth intact. Hemostasis achieved. Complications: None. Pt tolerated procedure well. Pt states having analgesics at home Written and verbal post-op instructions given. Patient discharged in stable condition; ambulatory, alert, and oriented. NV: F/U as needed / Car Clerk Pullman: Bridget Sibley Dentist: Edward Miller DDS [1] Past Medical History: Diagnosis Date Acute gastric ulcer Depression with anxiety 09/06/2022 History of pterygium excision Hypertension [2] Outpatient Encounter Medications as of 06/28/2024 Medication Sig Dispense Refill ALPRAZolam (Xanax) 1 MG tablet TAKE 1 TABLET BY MOUTH UP TO TWICE DAILY NEEDED FOR ANXIETY. MAY TAKE ADDITIONAL TABLET UP TO 5 TIMES PER MONTH IF NEEDED 65 tablet 0 aspirin (Aspirin Adult Low Strength) 81 MG EC tablet TAKE 1 TABLET BY MOUTH EVERY DAY 90 tablet 1 simvastatin (Zocor) 20 MG tablet TAKE 1 TABLET BY MOUTH EVERY DAY 90 tablet 1 traMADol (Ultram) 50 MG tablet Take 1 tablet (50 mg) by mouth every 12 (twelve) hours if needed forsevere pain for up to 28 days. 56 tablet 0 cyclobenzaprine (Flexeril) 10 MG tablet Take 0.5 tablets (5 mg) by mouth 3 times daily for 20 days.(Patient not taking: Reported on 06/28/2024) 30 tablet 0 famotidine (Pepcid) 40 MG tablet TAKE 1 TABLET BY MOUTH AT BEDTIME (Patient not taking: Reported on06/28/2024) 90 tablet 1 FLUoxetine (PROzac) 40 MG capsule TAKE 1 CAPSULE BY MOUTH EVERY DAY IN THE MORNING (Patient not taking: Reported on 06/28/2024) 90 capsule 1 isosorbide mononitrate ER (Imdur) 30 MG 24 hr tablet TAKE 1 TABLET BY MOUTH EVERY MORNING (Patient not taking: Reported on 06/28/2024) 90 tablet 2 lidocaine (Lidoderm) 5 % patch Apply 1 patch topically in the morning. Remove & discard patch within 12 hours or as directed by MD. (Patient not taking: Reported on 06/28/2024) 30 patch 3 losartan-hydroCHLOROthiazide (Hyzaar) 50-12.5 MG tablet Take 1 tablet by mouth Once per day. (Patient not taking: Reported on 06/28/2024) 30 tablet 3 mirtazapine (Remeron) 7.5 MG tablet TAKE 1 TABLET BY MOUTH EVERY DAY AT BEDTIME 90 tablet 3 nitroglycerin (Nitrostat) 0.[address] 1 tablet under tongue once at 1st sign of attack; may repeat every 5 minutes up to 3 tabs/15min; if no relief go to ED (Patient not taking: Reported on 06/28/2024) 100 tablet 0 omeprazole (PriLOSEC) [address] capsule TAKE 1 CAPSULE BY MOUTH ONCE DAILY BEFORE A MEAL (Patient not taking: Reported on 06/28/2024) 90 capsule 0 triamcinolone (Kenalog) 0.1 % cream Apply twice daily to rash for up to 2 weeks (Patient not taking: Reported on 06/28/2024) 45 g 0 No facility-administered encounter medications on file as of 06/28/2024. documented in this encounter Plan of Treatment Upcoming Encounters Date Type Department Care Team (Late st Contact Info) Description 08/06/2024 11:00 AM EDT Office Visit [facility] MEDICINE [address] [place] [address] documented as of this encounter Procedures Procedure Name Priority Date/Time Associated Diagnosis Comments 27 EXTRACTION, ERUPTED TOOTH REQ REMOVAL OF BONE AND/OR SECTIONING OF TOOTH Routine 06/28/2024 10:30 AM EDT 22 EXTRACTION, ERUPTED TOOTH REQ REMOVAL OF BONE AND/OR SECTIONING OF TOOTH Routine 06/28/2024 10:30 AM EDT 26 EXTRACTION, ERUPTED TOOTH OR EXPOSED ROOT (ELEVATION/FORCEPS REMOVAL) Routine 06/28/2024 10:30 AM EDT 23 EXTRACTION, ERUPTED TOOTH OR EXPOSED ROOT (ELEVATION/FORCEPS REMOVAL) Routine 06/28/2024 10:30 AM EDT CASE PRESENTATION, DETAILED AND EXTENSIVE TREATMENT PLANNING Routine 06/28/2024 10:30 AM EDT documented in this encounter Visit Diagnoses Diagnosis Periodontal disease- Primary Unspecified gingival and periodontal disease documented in this encounter Additional Health Concerns Assessment Noted Time PHQ-9 Depression Total Score: 8 01/19/20 23 4:02 PM EST documented as of this encounter Care Teams Tank Car Repairer Relationship Specialty Start Date End Date Yadira Chamberlain ANP [address] [place] [address] PCP - General Family Medicine 02/22/21 documented as of this encounter
--- OUTSIDE RECORDS SUMMARY | 2024-07-02 12:50 | XMS_ITS | Encounter Summary ---
Author Organization [email or web address] Address [address] [facility] 7t [place] [address] Care Team Providers Care Street Light Wirer Name Role Phone Yadira Chamberlain Primary Care Provider [phone] Reason for Visit * Reason Onset Date Comments Med Refill 10/09/2023 Encounter Details Date Type Department Care Team ([facility] st Contact Info) Description 10/09/2023 Telephone [facility] MEDICINE [address] [place] [address] Yadira Chamberlain ANP [address] [place] [address] Med Refill Social History Tobacco Use Types [...] encounter Miscellaneous Notes * Telephone Encounter - Levon Khan - 10/09/2023 12:54 PM EDT TC from pt requesting medication refill. Medications needing refill : traMADol (Ultram) 50 MG tablet To be sent to: [facility] Pharmacy documented in this encounter Plan of Treatment Upcoming Encounters Date Type Department Care Team (Late st Contact Info) Description 08/06/2024 11:00 AM EDT Office Visit [facility] MEDICINE [address] [place] [address] documented as of this encounter Visit Diagnoses Not on filedocumented in this encounter Additional Health Concerns Assessment Noted Time PHQ-9 Depression Total Score: 8 01/19/20 23 4:02 PM EST documented as of this encounter Care Teams Street Light Wirer Relationship Specialty Start Date End Date Yadira Chamberlain ANP [address] [place] [address] PCP - General Family Medicine 02/22/21 documented as of this encounter
--- OUTSIDE RECORDS SUMMARY | 2024-07-02 12:50 | XMS_ITS | Encounter Summary ---
Author Organization [employer] Address [address] [facility] 7t [place] [address] Care Team Providers Care Decorative Engraver Name Role Phone Yadira Chamberlain Primary Care Provider [phone] Reason for Visit * Reason Onset Date Comments Med Refill 12/04/2023 Encounter Details Date Type Department Care Team ([facility] st Contact Info) Description 12/04/2023 Telephone [facility] MEDICINE [address] [place] [address] Yadira Chamberlain ANP [address] [place] [address] Med Refill Social History Tobacco Use Types [...] encounter Miscellaneous Notes * Telephone Encounter - Bren Barrett LPN - 12/04/2023 12:43 PM EDT Medication was sent to [facility] Pharm[facility] on 03/31/23 #90 with 3 refills. * Telephone Encounter - Cherri Zuniga - 12/04/2023 12:37 PM EDT TC from pt requesting medication refill. Medications needing refill : mirtazapine (Remeron) 7.5 MG tablet To be sent to: [facility] - [place], [place] - [address] [place] [address] documented in this encounter Plan of Treatment Upcoming Encounters Date Type Department Care Team (Late st Contact Info) Description 08/06/2024 11:00 AM EDT Office Visit [facility] MEDICINE [address] [place] [address] documented as of this encounter Visit Diagnoses Not on filedocumented in this encounter Additional Health Concerns Assessment Noted Time PHQ-9 Depression Total Score: 8 01/19/20 23 4:02 PM EST documented as of this encounter Care Teams Decorative Engraver Relationship Specialty Start Date End Date Yadira Chamberlain ANP [address] [place] [address] PCP - General Family Medicine 02/22/21 documented as of this encounter
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
--- OUTSIDE RECORDS SUMMARY | 2024-07-02 12:50 | XMS_ITS | Encounter Summary ---
Author Organization [employer] Address [address] [facility] 7[address] [place] [address] Care Team Providers Care After School Coordinator Name Role Phone Yadira Chamberlain Primary Care Provider [phone] Reason for Visit * Reason Onset Date Comments Med Refill 03/12/2024 Encounter Details Date Type Department Care Team ([facility] st Contact Info) Description 03/12/2024 Telephone [facility] [address] [place] [address] Yadira Chamberlain ANP [address] [place] [address] Med Refill Social History Tobacco Use Types [...] encounter Miscellaneous Notes * Telephone Encounter - Radha Harris - 03/12/2024 11:17 AM EST TC from pt requesting medication refill. Medications needing refill : traMADol (Ultram) 50 MG tablet To be sent to: [facility] documented in this encounter Plan of Treatment Upcoming Encounters Date Type Department Care Team (Late st Contact Info) Description 08/06/2024 11:00 AM EDT Office Visit [facility] [address] [place] [address] documented as of this encounter Visit Diagnoses Not on filedocumented in this encounter Additional Health Concerns Assessment Noted Time PHQ-9 Depression Total Score: 8 01/19/20 23 4:02 PM EST documented as of this encounter Care Teams After School Coordinator Relationship Specialty Start Date End Date Yadira Chamberlain ANP [address] [place] [address] PCP - General Family Medicine 02/22/21 documented as of this encounter
--- OUTSIDE RECORDS SUMMARY | 2024-07-02 12:50 | XMS_ITS | Encounter Summary ---
Author Organization [employer] Address [address] [facility] 7[address] [place] [address] Care Team Providers Care Shipping And Receiving Supervisor Name Role Phone Yadira Chamberlain Primary Care Provider [phone] Reason for Visit * Reason Onset Date Comments Med Refill 10/17/2023 Encounter Details Date Type Department Care Team ([facility] st Contact Info) Description 10/17/2023 Telephone [facility] [address] [place] [address] Yadira Chamberlain ANP [address] [place] [address] Med Refill Social History Tobacco Use Types [...] * Telephone Encounter - Cherri Zuniga - 10/17/2023 9:16 AM EDT TC from pt requesting medication refill. Medications needing refill : ALPRAZolam (Xanax) 1 MG tablet To be sent to: [facility] - [place], [place] - [address] [place] [address] documented in this encounter Plan of Treatment Upcoming Encounters Date Type Department Care Team (Late st Contact Info) Description 08/06/2024 11:00 AM EDT Office Visit [facility] [address] [place] [address] documented as of this encounter Visit Diagnoses Not on filedocumented in this encounter Additional Health Concerns Assessment Noted Time PHQ-9 Depression Total Score: 8 01/19/20 23 4:02 PM EST documented as of this encounter Care Teams Shipping And Receiving Supervisor Relationship Specialty Start Date End Date Yadira Chamberlain ANP [address] [place] [address] PCP - General Family Medicine 02/22/21 documented as of this encounter
== END 2024-07-02 11:36 | disposition home or self-care (01) ==
LOC: HO.HHCX 11:35
PROVIDERS: Visit Provider Family Medicine
DX: R07.89 Other chest pain (principal)
CPT/HCPCS: 71046

== ENCOUNTER → 2024-07-02 11:36 | Outpatient (BNV) | payer OTHER, SELFPAY | PROVIDERS: Visit Provider Radiology Diagnostic Radiology | DX: R07.81 Pleurodynia (principal) | CPT/HCPCS: 71046 ==

== ENCOUNTER 2024-08-10 14:43 | Emergency (ER) | payer OTHER, SELFPAY ==
--- NOTE | ~2024-08-10 | XR_ITS ---
CLINICAL HISTORY: pain 3 view left elbow Comparison: None provided Findings: No acute fractures. Normal alignment. No significant loss of joint space, osteophytes, or erosions. No joint effusion. No radiopaque foreign body. IMPRESSION: 1. No acute findings. This document has been electronically signed by: Jolly Camacho MD on 08/10/2024 17:07:36
--- NOTE | ~2024-08-10 | XR_ITS ---
CLINICAL HISTORY: pain 3 view left shoulder Comparison: CR/SR - XR SHOULDER LT MIN 2V - 05/03/24 15:34 EDT DX/CO/SR - XR SHOULDER RT MIN 2V - 09/01/23 08:05 EDT Findings: No fractures or dislocations. No significant arthritic change. No erosions. No radiopaque foreign body. IMPRESSION: 1. No acute findings This document has been electronically signed by: Jolly Camacho MD on 08/10/2024 17:05:37
[2024-08-10 14:47] VITALS: BP 136/92; PULSE 93; RESP 16; TEMP 36.5; O2SAT 97; BMI 28.6
--- NOTE | 2024-08-10 14:47 | ED_ITS ---
HPI - Back Pain/Injury General Chief Complaint: Extremity Injury, Upper Stated Complaint: inflammation Time Seen by Provider: 08/10/24 15:29 History of Present Illness HPI Narrative: Patient is 63 years old history of acute chronic left shoulder pain had injection done in the past had pain medication patient complaining of increasing pain. No systemic complaints no chest pain or shortness of breath no diaphoresis no pain on movement of the right shoulder. The pain is over the elbow and over the shoulder mainly. There is no focal weakness. Related Data Home Medications ?Medication ?Instructions ?Recorded ?Confirmed aspirin 81 mg tablet,delayed 81 mg PO DAILY 09/15/21 0 06/08/22 release alprazolam 1 mg tablet 1 mg PO TID PRN 10/13/21 estradiol 0.5 mg tablet 0.5 mg PO DAILY 10/13/21 isosorbide mononitrate 30 mg 30 mg PO DAILY 10/13/21 0 06/08/22 tablet,extended release 24 hr simvastatin 20 mg tablet 20 mg PO DAILY 10/13/2105/15 tramadol 50 mg tablet 50 mg PO DAILY PRN 10/13/21 06/08/22 famotidine 40 mg tablet 40 mg PO BEDTIME 12/15/21 Previous Rx's ?Medication ?Instructions ?Recorded omeprazole 40 mg capsule,delayed 40 mg PO BID #60 caps 09/15/21 release cyclobenzaprine 5 mg tablet 5 mg PO TID PRN muscle spa sm #15 01/04/24 tabs lidocaine 4 % topical patch 1 patch topical DAILY PRN pain #30 05/03/24 (Salonpas (lidocaine)) ea gabapentin 300 mg capsule 300 mg PO DAILY #90 caps sucralfate 1 gram tablet 1 g PO TID #90 tabs 05/05/24 cyclobenzaprine 10 mg tablet 10 mg PO TID PRN pain #14 tabs 08/10/24 ibuprofen 400 mg tablet 400 mg PO Q6H PRN pain #20 t abs 08/10/24 Allergies Allergy/AdvReac Type Severity Reaction Status Date / Time No Known Allergies Allergy Verified 08/10/24 14:51 Review of Systems Review of Systems: Positive pain to the left shoulder Yes all other systems are reviewed and are negative [facility] Past Medical History Attestation statement: The following information was validated with the patient. Medical History Back pain Angina pectoris Anxiety High cholesterol HTN (hypertension) Family History Family History Father CVD (cardiovascular disease) Paternal Aunt CVD (cardiovascular disease) Diabetes Paternal Aunt Diabetes Social History Social History Alcohol intake: never Patient Tobacco Use Status: Never used Tobacco Smoked in Last 30 Days: No Use of substances other than those prescribed or required for medical reasons: No Advance Directives: No Advance Directives Information Provided: Yes Current occupational status: disabled Current occupation: left handed Physical Exam Vital Signs: Vital Signs: Last Vital Signs Temp 97.3 F 08/10/24 16:00 Pulse 86 08/10/24 16:00 Resp 16 08/10/24 16:00 BP 135/63 08/10/24 16:00 Pulse Ox 99 08/10/24 16:00 O2 Del Method Room Air 08/10/24 16:00 BMI result Body Mass Index 28.6 Appearance: Alert. Oriented X3. No acute distress. Eyes: Pupils equal, round and reactive to light. ENT: Pharynx normal. Neck: Normal inspection. Neck supple. No lymph nodes noted. No crepitus CVS: Normal heart rate and rhythm. Pulses normal. Normal S1 and S2 Respiratory: No respiratory distress. Breath sounds normal. No Wheezing. No rales Abdomen: Soft and nontender. No rigidity. No distention. good BS x4 Skin: Skin warm and dry. Normal skin color. Normal skin turgor. Extremities: Positive pain in the left shoulder. Worse with abduction worse with internal rotation. There is good movement of the elbow there is good movement of the wrist of the hand there is good opposition of the thumb there is good capillary refill pulses were 2+ at radial there is good sensation over the axillary, median, radial, ulnar nerve distribution. Skin is intact. Neuro: Oriented X 3. No motor deficit. No sensory deficit. Moving all extermities. No slurred speech Course Course Course Narrative: Sobia Lee APRN This is a rapid medical exam. Deferred additional HPI, ROS, PE to primary provider. 63 yo female here with acute on chronic left shoulder pain, has appt with ortho September 2024. Seen by PCP several times. Has tried prednisone, tramadol, flexeril, topical pain creams with continued pain. ?received IM injection in office yesterday for pain. Needs analgesia VSS Medications Administered Discontinued Medications Generic Name Dose Route Start Last Admin Trade Name Freq PRN Reason Stop Dose Admin Hydrocodone Bitart/Acetaminophen 1 tab 08/10/24 16:50 08/10/24 17:01 Hydrocodone Bit/Acetam 5/325 Tablet PO 08/10/24 16:51 1 tab ONCE ONE Administration Ibuprofen 400 mg 08/10/24 16:53 08/10/24 17:01 Ibuprofen 400 Mg Tablet PO 08/10/24 16:54 400 mg ONCE ONE Administration Medical Decision Making Medical Decision Making [facility] Narrative: Patient well appearing no acute distress localized shoulder pain that is been going on 2 months if not years. X-ray showed no acute fracture. No dislocation. Will discharge patient home Differential Diagnosis Differential Diagnoses: The differential diagnosis associated with the presentation includes Shoulder pain Admission/Observation Consideration of admission/observation: Escalation of care including admission/observation considered No need to stay pain localized no signs of ACS Independent Interpretation I performed an independent interpretation of an: Plain X-Ray (X-ray of the left shoulder elbow were negative) Radiology Impression Discussion of test interpretation with radiology: I have reviewed the radiologist's reading. 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 Discharge Plan Discharge Clinical Impression: Acute shoulder pain Patient Disposition: Home, Self-Care Instructions: Shoulder Pain (ED) Prescriptions: New cyclobenzaprine 10 mg tablet 10 mg PO TID PRN (Reason: pain) Qty: 14 0RF ibuprofen 400 mg tablet 400 mg PO Q6H PRN (Reason: pain) Qty: 20 0RF No Action cyclobenzaprine 5 mg tablet 5 mg PO TID PRN (Reason: muscle spasm) Qty: 15 0RF lidocaine [Salonpas (lidocaine)] 4 % adhesive patch,medicated 1 patch topical DAILY PRN (Reason: pain) Qty: 30 0RF sucralfate 1 gram tablet 1 g PO TID Qty: 90 0RF gabapentin 300 mg capsule 300 mg PO DAILY Qty: 90 0RF aspirin 81 mg tablet,delayed release (DR/EC) 81 mg PO DAILY omeprazole 40 mg capsule,delayed release(DR/EC) 40 mg PO BID Qty: 60 6RF alprazolam 1 mg tablet 1 mg PO TID PRN isosorbide mononitrate 30 mg tablet extended release 24 hr 30 mg PO DAILY simvastatin 20 mg tablet 20 mg PO DAILY famotidine 40 mg tablet 40 mg PO BEDTIME tramadol 50 mg tablet 50 mg PO DAILY PRN estradiol 0.5 mg tablet 0.5 mg PO DAILY Rx Instructions: off 5 days; repeat cycle Referrals: Yadira Chamberlain NP [Primary Care Provider, Internal Medicine] - 08/12/24 Print Language: Setswana
[2024-08-10 16:00] VITALS: BP 135/63; PULSE 86; RESP 16; TEMP 36.3; O2SAT 99
[2024-08-10] MEDS: HYDROcodone Bit/Acetam 5/325 TABLET 1 TAB PO (17:01)
[2024-08-10] MEDS: Ibuprofen 400 MG TABLET PO (17:01)
[2024-08-10 17:58] VITALS: BP 135/63; PULSE 86; RESP 16; TEMP 36.3; O2SAT 99
== END 2024-08-10 17:58 | disposition home or self-care (01) ==
PROVIDERS: Emergency Provider Emergency Medicine Emergency Medical Services; PCP Nurse Practitioner Primary Care
DX: M25.512 Pain in left shoulder (principal); Z79.899 Other long term (current) drug therapy
CPT/HCPCS: 73030; 73080; 99283; 99284

== ENCOUNTER → 2024-08-10 15:28 | Outpatient (BNV) | payer OTHER, SELFPAY | PROVIDERS: Emergency Provider Emergency Medicine Emergency Medical Services; PCP Nurse Practitioner Primary Care; Visit Provider Radiology Diagnostic Radiology | DX: R07.9 Chest pain, unspecified (principal); M25.512 Pain in left shoulder; M25.522 Pain in left elbow | CPT/HCPCS: 71046; 73030; 73080 ==

== ENCOUNTER 2024-08-10 19:57 | Emergency (ER) | payer OTHER, SELFPAY ==
--- NOTE | ~2024-08-10 | XR_ITS ---
CLINICAL HISTORY: weakness 2 view chest x-ray Comparison: CR/ME/SR - XR CHEST 2V - 07/02/24 11:57 EDT Findings: No consolidation or effusion. Normal size heart. No acute fracture. IMPRESSION: 1. No acute findings. This document has been electronically signed by: Jolly Camacho MD on 08/10/2024 20:54:58
--- NOTE | 2024-08-10 19:58 | ECG_ITS ---
Test Reason : CP Blood Pressure : */* mmHG Vent. Rate : 92 BPM Atrial Rate : 92 BPM P-R Int : 136 ms QRS Dur : 82 ms QT Int : 360 ms P-R-T Axes : 32 21 58 degrees QTcB Int : 445 ms Normal sinus rhythm Normal ECG When compared with ECG of 04-May-2024 23:58, No significant change was found Referred By: Sobia Lee Electronically Signed By: KILLIAN DURHAM
--- NOTE | 2024-08-10 20:18 | ED.CHESTPAIN ---
HPI - Chest Pain General Chief Complaint: Chest Pain Stated Complaint: heart racing/feels sob feels weak Time Seen by Provider: 08/10/24 21:17 Source: patient and family Mode of arrival: EMS Limitations: no limitations History of Present Illness ED Provider: HPI narrative: Patient with chronic left shoulder pain more than 1 year has a cortisone shot in the past for similar problem in the right shoulder comes here as she is still having the pain was earlier seen and discharge few hours ago says that pain is still persisting and now is in left elbow also and going to the chest no shortness a breath patient's feels very anxious Related Data Home Medications ?Medication ?Instructions ?Recorded ?Confirmed aspirin 81 mg tablet,delayed 81 mg PO DAILY 09/15/21 06/08/22 release alprazolam 1 mg tablet 1 mg PO TID PRN 10/13/21 06/08/22 estradiol 0.5 mg tablet 0.5 mg PO DAILY 10/13/21 06/08/22 isosorbide mononitrate 30 mg 30 mg PO DAILY 10/13/21 06/08/22 tablet,extended release 24 hr simvastatin 20 mg tablet 20 mg PO DAILY 10/13/21 06/08/22 tramadol 50 mg tablet 50 mg PO DAILY PRN 10/13/21 06/08/22 famotidine 40 mg tablet 40 mg PO BEDTIME 12/15/21 06/08/22 Previous Rx's ?Medication ?Instructions ?Recorded omeprazole 40 mg capsule,delayed 40 mg PO BID #60 caps 09/15/21 release cyclobenzaprine 5 mg tablet 5 mg PO TID PRN muscle spasm #15 01/04/24 tabs lidocaine 4 % topical patch 1 patch topical DAILY PRN pain #30 05/03/24 (Salonpas (lidocaine)) ea gabapentin 300 mg capsule 300 mg PO DAILY #90 caps 05/05/24 sucralfate 1 gram tablet 1 g PO TID #90 tabs 05/05/24 cyclobenzaprine 10 mg tablet 10 mg PO TID PRN pain #14 tabs 08/10/24 ibuprofen 400 mg tablet 400 mg PO Q6H PRN pain #20 tabs 08/10/24 Allergies Allergy/AdvReac Type Severity Reaction Status Date / Time No Known Allergies Allergy Verified 08/10/24 20:26 Review of Systems Review of Systems: Yes all other systems are reviewed and are negative [facility] Past Medical History Medical History Back pain Angina pectoris Anxiety High cholesterol HTN (hypertension) Family History Family History Father CVD (cardiovascular disease) Paternal Aunt CVD (cardiovascular disease) Diabetes Paternal Aunt Diabetes Social History Social History Alcohol intake: never Patient Tobacco Use Status: Never used Tobacco Smoked in Last 30 Days: No Use of substances other than those prescribed or required for medical reasons: No Advance Directives: No Advance Directives Information Provided: No Patient : No Current occupational status: disabled Current occupation: left handed Physical Exam Vital Signs: Vital Signs: Last Vital Signs Temp 97.9 F 08/10/24 22:33 Pulse 94 08/10/24 22:33 Resp 18 08/10/24 22:33 BP 176/76 H 08/10/24 22:33 Pulse Ox 97 08/10/24 22:33 O2 Del Method Room Air 08/10/24 22:33 BMI result Body Mass Index 28.5 Appearance: Alert. Oriented X3. No acute distress. Anxious Eyes: PERRLA, No Nystagmus ENT: Pharynx normal. Oral Mucosa moist Neck: Normal inspection. Neck supple. CVS: Normal heart rate and rhythm. Pulses normal. Respiratory: No respiratory distress. Equal air entry bilateral, no wheezing/rales/rhonchi Abdomen: Soft and nontender. Bowel sounds are present, no mass palpable, no CVA tenderness Skin: Skin warm and dry. Normal skin color. Normal skin turgor. Extremities: No lower extremity edema. No calf tenderness Neuro: Oriented X 3. No motor deficit. No sensory deficit.No cerebellar signs , cranial nerves II-XII intact Course Course Course Narrative: Sobia Lee APRN This is a rapid medical exam. Deferred additional HPi, ROS, PE to primary provider. 63 yo female seen here several hours ago for chronic shoulder pain discharged with prescriptions for for flexeril/ibuprofen returns with complaints of chest pain which began at home after leaving the hospital. 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 Will obtain labs, EKG, CXR VSS Medications Administered Discontinued Medications Generic Name Dose Route Start Last Admin Trade Name Marc PRN Reason Stop Dose Admin Dexamethasone 10 mg 08/10/24 21:47 08/10/24 21:58 Dexamethasone 2 Mg Tablet PO 08/10/24 21:48 10 mg ONCE ONE Administration Ketorolac Tromethamine 60 mg 08/10/24 21:47 08/10/24 21:59 Ketorolac Tromethamine 60 Mg/2 Ml Vial IM 08/10/24 21:48 60 mg ONCE ONE Administration Potassium Bicarbonate 25 meq 08/10/24 22:14 08/10/24 22:32 Potassium Bicarbonate/Cit Ac 25 Meq Tablet.Eff PO 08/10/24 22:15 25 meq ONCE ONE Administration Medical Decision Making Medical Decision Making [facility] Narrative: Patient with left shoulder clinically rotator cuff tendinitis also has left elbow pain likely arthritis with anxiety already she taking prednisone advised to follow with PCP Lab Data MDM Lab Attestation statement: I reviewed the patient's lab results. 08/10/24 21:23 08/10/24 21:23 Labs: Lab Results 08/10/24 08/10/24 Range/Units 19:18 21:23 WBC 15.1 H (4.8-10.8) X10*3/uL RBC 5.57 H (4.20-5.50) X10*6/uL Hgb 15.8 (12.0-16.0) g/dl Hct 46.2 (37.0-47.0) % MCV 82.9 (80.0-98.0) fL MCH 28.4 (27.0-33.0) pg MCHC 34.2 (31.0-35.0) g/dl RDW 12.6 (11.0-16.0) % Plt Count 319 D (160-400) X10*3/uL MPV 12.6 H (9.4-12.3) fL Immature Gran % (Auto) 0.5 H (0.0-0.4) % Neut % (Auto) 63.9 (45-73) % Lymph % (Auto) 23.6 (20-40) % [place] % (Auto) 10.5 (2-11) % Eos % (Auto) 0.7 (0-4) % Baso % (Auto) 0.8 (0-2) % Lymph # (Auto) 3.6 (1.2-4.9) X10*3/uL [place] # (Auto) 1.6 H (0.1-1.2) X10*3/uL Eos # (Auto) 0.1 (0.0-0.4) X10*3/uL Baso # (Auto) 0.1 (0.0-0.2) X10*3/uL Abs Immat Gran (auto) 0.07 H (0.00-0.03) X10*3/uL Absolute Neuts (auto) 9.7 H (2.0-8.3) x10*3/uL Absolute Nucleated RBC 0.000 (0.0-0.012) X10*3/uL Nucleated RBC % (auto) 0.0 (0.0-0.2) /100WBC Smear Tech's Comments VERIFIED Sodium 142 (135-145) mmol/L Potassium 3.1 L (3.3-5.1) mmol/L Chloride 103 (96-108) mmol/L Carbon Dioxide 26 (22-29) mmol/L Anion Gap 16 (12-20) BUN 22 H (9-16) mg/dL Creatinine 0.91 (0.5-1.4) mg/dL Estim Creat Clear Calc 57.5 Estimated GFR > 60 Random Glucose 121 H (60-115) mg/dL Calcium 9.7 (8.4-10.2) mg/dL Total Bilirubin 0.3 (0.0-1.0) mg/dL Direct Bilirubin 0.1 (0.0-0.5) mg/dL AST 27 (5-31) U/L ALT 40 H (0-31) U/L Alkaline Phosphatase 105 (39-117) U/L Troponin I High Sens 14.4 (<3.5-17.0) ng/L Total Protein 8.2 H (6.5-8.0) g/dL Albumin 4.5 (3.5-5.0) g/dL Discharge Plan Discharge Clinical Impression: Tendinitis of left rotator cuff Patient Disposition: Home, Self-Care Instructions: Rotator Cuff Tendinitis (ED) Additional Instructions: Continue take your tramadol which you may take twice a day as prescribed by your PCP Continue take prednisone as prescribed by PCP Prescriptions: No Action cyclobenzaprine 10 mg tablet 10 mg PO TID PRN (Reason: pain) Qty: 14 0RF ibuprofen 400 mg tablet 400 mg PO Q6H PRN (Reason: pain) Qty: 20 0RF cyclobenzaprine 5 mg tablet 5 mg PO TID PRN (Reason: muscle spasm) Qty: 15 0RF lidocaine [Salonpas (lidocaine)] 4 % adhesive patch,medicated 1 patch topical DAILY PRN (Reason: pain) Qty: 30 0RF sucralfate 1 gram tablet 1 g PO TID Qty: 90 0RF gabapentin 300 mg capsule 300 mg PO DAILY Qty: 90 0RF aspirin 81 mg tablet,delayed release (DR/EC) 81 mg PO DAILY omeprazole 40 mg capsule,delayed release(DR/EC) 40 mg PO BID Qty: 60 6RF alprazolam 1 mg tablet 1 mg PO TID PRN isosorbide mononitrate 30 mg tablet extended release 24 hr 30 mg PO DAILY simvastatin 20 mg tablet 20 mg PO DAILY famotidine 40 mg tablet 40 mg PO BEDTIME tramadol 50 mg tablet 50 mg PO DAILY PRN estradiol 0.5 mg tablet 0.5 mg PO DAILY Rx Instructions: off 5 days; repeat cycle Interventions: ED Discharge Assessment Last Done: 08/10/24 22:33 Discharge Date/Time: 08/10/24 22:37 Print Language: Macanese
[2024-08-10 20:19] VITALS: BP 132/59; PULSE 95; RESP 20; TEMP 36.4; O2SAT 96; BMI 28.5
--- OUTSIDE RECORDS SUMMARY | 2024-08-10 20:45 | XMS_ITS | Encounter Summary ---
Author Organization [employer] Address [address] [facility] [address] [place] [address] Care Team Providers Care Physical Therapy Assistant Name Role Phone Yadira Chamberlain Primary Care Provider [phone] Reason for Visit * Reason Comments Med Refill Encounter Details Date Type Department Care Team ([facility] st Contact Info) Description 07/26/2023 Refill [facility] [address] [place] [address] Yadira Chamberlain ANP [address] [place] [address] Chronic bilateral low back pain without sciatica [...] Care Team (Late st Contact Info) Description 08/12/2024 11:30 AM EDT Office Visit [facility] [address] [place] [phone] Yadira Chamberlain ANP [address] [place] [phone] 08/14/2024 8:30 AM EDT Office Visit [facility] ADULT DENT[facility] [address] [place] [id number] Indira Be, DDS [address] [place] [phone] 10/08/2024 11:00 AM EDT Office Visit [address] [id number] 10/15/2024 11:00 AM EDT Office Visit [address] [address] Yadira Chamberlain ANP [address] [place] [id number] documented as of this encounter Visit Diagnoses Diagnosis Chronic bilateral low back pain without sciatica documented in this encounter Additional Health Concerns Assessment Noted Time PHQ-9 Depression Total Score: 8 01/19/20 23 4:02 PM EST documented as of this encounter Care Teams Physical Therapy Assistant Relationship Specialty Start Date End Date Yadira Chamberlain ANP [address] [place] [phone] PCP - General Family Medicine 02/22/21 documented as of this encounter
[2024-08-10 21:01] VITALS: BP 139/62; PULSE 84; RESP 17; TEMP 36.6; O2SAT 98
[2024-08-10 21:33] LABS: Basophils Absolute Auto 0.1 X10*3/uL (0.0-0.2); Basophils Percent Auto 0.8 % (0-2); Eosinophils Absolute Auto 0.1 X10*3/uL (0.0-0.4); Eosinophils Percent Auto 0.7 % (0-4); Hematocrit 46.2 % (37.0-47.0); Hemoglobin 15.8 g/dl (12.0-16.0); Imm Gran Abs Auto 0.07 X10*3/uL (0.00-0.03); Imm Gran Pct Auto 0.5 % (0.0-0.4); Lymphocytes Absolute Auto 3.6 X10*3/uL (1.2-4.9); Lymphocytes Percent Auto 23.6 % (20-40); MANUAL DIFF FLAG SCAN; Mean Corpuscular HGB Conc 34.2 g/dl (31.0-35.0); Mean Corpuscular Hemoglobin 28.4 pg (27.0-33.0); Mean Corpuscular Volume 82.9 fL (80.0-98.0); Mean Platelet Volume 12.6 fL (9.4-12.3); Monocytes Absolute Auto 1.6 X10*3/uL (0.1-1.2); Monocytes Percent Auto 10.5 % (2-11); Neutrophils Absolute Auto 9.7 x10*3/uL (2.0-8.3); Neutrophils Percent Auto 63.9 % (45-73); Platelet Count 319 X10*3/uL (160-400); Red Blood Count 5.57 X10*6/uL (4.20-5.50); Red Cell Distribution Width 12.6 % (11.0-16.0); SCAN SMEAR FLAG 1; White Blood Count 15.1 X10*3/uL (4.8-10.8)
[2024-08-10 21:48] LABS: Alanine Aminotransferase 40 U/L (0-31); Albumin Level 4.5 g/dL (3.5-5.0); Alkaline Phosphatase 105 U/L (39-117); Anion Gap 16 (12-20); Aspartate Amino Transferase 27 U/L (5-31); Bilirubin Direct 0.1 mg/dL (0.0-0.5); Bilirubin Total 0.3 mg/dL (0.0-1.0); Blood Urea Nitrogen 22 mg/dL (9-16); Calcium 9.7 mg/dL (8.4-10.2); Carbon Dioxide 26 mmol/L (22-29); Chloride 103 mmol/L (96-108); Creatinine Clr Calc Pharmacy 57.5; Estimated Glomerular Filt Rate > 60; Glucose Random 121 mg/dL (60-115); Potassium 3.1 mmol/L (3.3-5.1); Sodium 142 mmol/L (135-145); Total Protein 8.2 g/dL (6.5-8.0)
--- NOTE | 2024-08-10 21:51 | PC.NURSE ---
patient verbalized to MD Raymundo that she has this chest pain and feels heart pounding when she is anxious. when asked, patient states her anxiety is high at this time. states she has anxiety medicine at home prescribed but did not take today. patient states she has chronic shoulder pain and has received injections that help temporarily but has not seen a specialist. pt includes that she has tramadol prescribed at home that she has not taken today.
[2024-08-10 21:55] LABS: Troponin-I High Sensitivity 14.4 ng/L (<3.5-17.0)
[2024-08-10 21:57] LABS: SLIDE REVIEW VERIFIED
[2024-08-10] MEDS: dexAMETHasone 2 MG TABLET 10 MG PO (21:58)
[2024-08-10] MEDS: Ketorolac Tromethamine 60 MG/2 ML VIAL IM (21:59)
[2024-08-10 22:06] VITALS: BP 176/76; PULSE 94; TEMP 36.6; O2SAT 97
[2024-08-10] MEDS: Potassium Bicarbonate/Cit AC 25 MEQ TABLET.EFF PO (22:32)
[2024-08-10 22:33] VITALS: BP 176/76; PULSE 94; RESP 18; TEMP 36.6; O2SAT 97
== END 2024-08-10 22:37 | disposition home or self-care (01) ==
PROVIDERS: Nurse Practitioner Family; Emergency Provider Internal Medicine; PCP Nurse Practitioner Primary Care
DX: M75.32 Calcific tendinitis of left shoulder (principal); R07.89 Other chest pain; M25.512 Pain in left shoulder; Z79.899 Other long term (current) drug therapy
CPT/HCPCS: 36415; 71046; 80048; 80076; 84484; 85025; 93005; 96372; 99284; 99285; J1885; J8540

== ENCOUNTER → 2024-08-10 19:58 | Outpatient (BNV) | payer OTHER, SELFPAY | PROVIDERS: Emergency Provider Internal Medicine; PCP Nurse Practitioner Primary Care; Visit Provider Internal Medicine | DX: R07.9 Chest pain, unspecified (principal) | CPT/HCPCS: 93010 ==

== ENCOUNTER 2024-08-19 08:11 | Outpatient (REF) | payer OTHER, SELFPAY ==
--- OUTSIDE RECORDS SUMMARY | 2024-08-19 08:16 | XMS_ITS | Encounter Summary ---
Author Organization [employer] Address [address] [facility] [address] [place] [address] Care Team Providers Care Tree Farmer Name Role Phone Yadira Chamberlain Primary Care Provider [phone] Reason for Visit * Reason Comments Med Refill Encounter Details Date Type Department Care Team ([facility] st Contact Info) Description 07/26/2023 Refill [facility]EDS [address] [place] [address] Yadira Chamberlain ANP [address] [place] [address] Chronic bilateral low back pain without sciatica [...] Care Team (Late st Contact Info) Description 08/28/2024 9:30 AM EDT Procedure Visit [facility] MEDICINE [address] [place] [phone] Mili Morris CNM [address] [place] [address] 09/05/2024 8:30 AM EDT Office Visit [facility] ADULT DENTAL [address] [place] [phone] Indira Be, DDS [address] [place] [address] 10/08/2024 11:00 AM EDT Office Visit [facility] MED[facility]INE [address] [place] [phone] 10/15/2024 11:00 AM EDT Office Visit [facility] [address] [place] [phone] Yadira Chamberlain ANP [address] [place] [phone] documented as of this encounter Visit Diagnoses Diagnosis Chronic bilateral low back pain without sciatica documented in this encounter Additional Health Concerns Assessment Noted Time PHQ-9 Depression Total Score: 8 01/19/20 23 4:02 PM EST documented as of this encounter Care Teams Tree Farmer Relationship Specialty Start Date End Date Yadira Chamberlain ANP [address] [place] [id number] PCP - General Family Medicine 02/22/21 documented as of this encounter
[2024-08-19 11:44] LABS: Hematocrit 44.1 % (37.0-47.0); Hemoglobin 14.6 g/dl (12.0-16.0); Imm Gran Abs Auto 0.03 X10*3/uL (0.00-0.03); Imm Gran Pct Auto 0.3 % (0.0-0.4); Lymphocytes Absolute Auto 3.6 X10*3/uL (1.2-4.9); MANUAL DIFF FLAG SCAN; Mean Corpuscular HGB Conc 33.1 g/dl (31.0-35.0); Mean Corpuscular Hemoglobin 28.9 pg (27.0-33.0); Mean Corpuscular Volume 87.2 fL (80.0-98.0); NRBC Abs Auto 0.000 X10*3/uL (0.0-0.012); NRBC Pct Auto 0.0 /100WBC (0.0-0.2); PLT CLUMP 1; Red Blood Count 5.06 X10*6/uL (4.20-5.50); SCAN SMEAR FLAG 1
[2024-08-19 11:47] LABS: White Blood Count 8.6 X10*3/uL (4.8-10.8)
[2024-08-19 11:56] LABS: Platelet Count 243 X10*3/uL (160-400)
[2024-08-19 14:27] LABS: Anion Gap 12 (12-20); Blood Urea Nitrogen 9 mg/dL (9-16); Calcium 9.6 mg/dL (8.4-10.2); Carbon Dioxide 30 mmol/L (22-29); Chloride 103 mmol/L (96-108); Estimated Glomerular Filt Rate > 60; Potassium 4.0 mmol/L (3.3-5.1); Sodium 141 mmol/L (135-145)
== END 2024-08-19 08:12 | disposition home or self-care (01) ==
LOC: HO.HHCL 08:11
PROVIDERS: PCP Nurse Practitioner Primary Care; Visit Provider Nurse Practitioner Primary Care
DX: E87.6 Hypokalemia (principal); D72.828 Other elevated white blood cell count
CPT/HCPCS: 36415; 80048; 85025

== ENCOUNTER 2024-10-03 11:11 | Outpatient (REF) | payer OTHER, SELFPAY ==
--- NOTE | ~2024-10-03 | XR_ITS ---
EXAMINATION: XR SHOULDER, LEFT CLINICAL INFORMATION: M25.519 - Pain in unspecified shoulder COMPARISON: August 10, 2024 TECHNIQUE: AP external rotation, Grashey, scapular Y, and axillary views of the left shoulder. FINDINGS: No acute cortical disruption or malalignment. No lytic or blastic lesions. No subcutaneous emphysema. No soft tissue calcifications. Mild sclerosis along the undersurface of the glenoid foci of the left scapula. XR/XR shoulder LT min 2V IMPRESSION: Mild degenerative changes, glenohumeral joint. Electronically signed by: Cash Lei MD 10/03/2024 01:49 PM EDT
--- OUTSIDE RECORDS SUMMARY | 2024-10-04 11:17 | XMS_ITS | Encounter Summary ---
Author Organization [employer] Address [address] [place] [address] Care Team Providers Care Crusher Wet Ground Mica Name Role Phone Yadira Chamberlain Primary Care Provider [phone] Reason for Visit * Reason Comments Med Refill Encounter Details Date Type Department Care Team ([facility] st Contact Info) Description 07/26/2023 Refill [facility] [address] [place], [place] [id number] Yadira Chamberlain ANP [address] [place] [address] Chronic bilateral low back pain without sciatica [...] Care Team (Late st Contact Info) Description 10/08/2024 11:00 AM EDT Office Visit [address] [address] 10/15/2024 11:00 AM EDT Office Visit [address] [address] Yadira Chamberlain ANP [address] [place] [id number] 11/01/2024 9:00 AM EDT Medication Management [address] [address] Stephanie Mccormack, PharmD [address] [place] [phone] documented as of this encounter Visit Diagnoses Diagnosis Chronic bilateral low back pain without sciatica documented in this encounter Additional Health Concerns Assessment Noted Time PHQ-9 Depression Total Score: 8 01/19/20 23 4:02 PM EST documented as of this encounter Care Teams Crusher Wet Ground Mica Relationship Specialty Start Date End Date Yadira Chamberlain ANP [address] [place] [phone] PCP - General Family Medicine 02/22/21 documented as of this encounter
== END 2024-10-03 11:12 | disposition home or self-care (01) ==
LOC: HO.HOSX 11:11
PROVIDERS: Visit Provider Physician Assistant
DX: M75.102 Unspecified rotator cuff tear or rupture of left shoulder, not specified as traumatic (principal); M25.512 Pain in left shoulder; Z79.899 Other long term (current) drug therapy
CPT/HCPCS: 20610; 73030; 99212; J1010; J2003

== ENCOUNTER 2024-10-03 12:25 | Outpatient (AMB) | payer OTHER, SELFPAY ==
--- NOTE | 2024-10-03 13:03 | MHC.OFFVIS ---
Vital Signs 10/03/24 13:31 Height 5 ft 2 in Weight 156 lb BMI 28.5 Handedness Left Intake Visit Reasons: New Prob-Acute pain of left shoulder Intake Note: Rosalina is a 63 year old left hand dominant female who presents today for a evaluation of her left shoulder pain. Patient reports ongoing pain for about 6 months. No hx of injury. She mentions that she works through her pain. Her pain is usually a 10 out of 10 on the pain scale she was advised to take tylenol if needed and tramadol as prescribed. She states that a couple years ago she has cortisone injections in her left shoulder which gave her 2- 3 months of relief. Patient notices that her pain is worse at night. Patient is looking for getting a injection. Sales Associate Cashier Required: Yes Sales Associate Cashier Language: Surveyor Rod Helper Services: Sales Associate Cashier Present ([place] ([id number])) Sales Associate Cashier Name: JUSTINA Johnston/SARMAD Allergies No Known Allergies Allergy (Verified 10/03/24 13:30) HPI HPI New Prob-Acute pain of left shoulder: Details: Ms. Anjel Perez is a 63-year-old female who presents to the office today for left shoulder pain. She reports the pain has been ongoing for the last 6 months. She denies any injury or trauma. She has been taking Tylenol and tramadol as prescribed but reports this has been minimally helpful. She did have cortisone injections in the left shoulder in the past which gave her roughly 2-3 months of relief. She is looking for repeat injection while in the office today. [facility] Medical History Back pain Angina pectoris Anxiety High cholesterol HTN (hypertension) Family History Father CVD (cardiovascular disease) Paternal Aunt CVD (cardiovascular disease) Diabetes Paternal Aunt Diabetes Social History Alcohol intake: never Patient Tobacco Use Status: Never used Tobacco Current occupational status: disabled Current occupation: left handed Review of Systems Const All systems reviewed & are unremarkable except as noted in HPI and below Physical Exam Vital Signs: BMI result Body Mass Index 28.5 Const General: cooperative, healthy appearing and no acute distress Resp Effort & Inspection: normal respiratory effort and able to speak in complete sentences Extrem Other: Left shoulder: Normal to inspection. No ecchymosis, erythema, or edema. 90 degrees forward flexion and abduction. Passive cross-body reach. 3/5 strength with empty can. Negative drop arm. NVI. Psych Appearance: grossly normal Mental Status: mental status grossly normal Attitude: cooperative Office Procedures AMB Joint Injection/Aspiration Joint Injection/Aspiration Primary Site: left shoulder Prep: site was prepped using aseptic technique, ethochloride spray was applied and injection warnings given Injected: 80 mg of, DepoMedrol, with 8 mL of (2% plain lidocaine) and in the subcromial space Approach Used: posterolateral Procedure: The patient tolerated the procedure well, but had some pain with the injection and there was some relief with the local anesthesia Coding - Large joint Procedure code (CPT) selection complete Assessment & Plan Assessment & Plan (1) Painful arc syndrome of left shoulder: Code(s): M75.102 - Unspecified rotator cuff tear or rupture of left shoulder, not specified as traumatic Category: Medical Plan Ms. Anjel Perez is a 63-year-old female who presents to the office today for left shoulder pain. She reports the pain has been ongoing for the last 6 months. She denies any injury or trauma. She has been taking Tylenol and tramadol as prescribed but reports this has been minimally helpful. She did have cortisone injections in the left shoulder in the past which gave her roughly 2-3 months of relief. She is looking for repeat injection while in the office today. The patient was offered a cortisone injection in the left shoulder with 80 mg of DepoMedrol. The patient was explained the risks, benefits, and alternatives to receiving this injection. After receiving consent for the injection, the patient had the procedure done while in the office today. The patient tolerated the procedure well with no complications. Follow-up will be PRN, or sooner if needed X-rays of the left which were obtained while in the office today and were reviewed by me, Mariely Lucas PA-C, revealed no acute fracture or dislocation. Orders: Orders XR shoulder LT min 2V Today M25.519 - Pain in unspecified shoulder Coding Level of Care Code Est Pt Level 3 (43465) Diagnoses Painful arc syndrome of left shoulder M75.102 CPT Codes Coding - 02214 Large joint: 62946 - Large joint ([id number])
[2024-10-03 13:31] VITALS: BMI 28.5
== END 2024-10-03 14:23 | disposition home or self-care (01) ==
LOC: HO.HOS 12:26
PROVIDERS: Visit Provider Physician Assistant
DX: M75.102 Unspecified rotator cuff tear or rupture of left shoulder, not specified as traumatic (principal)
CPT/HCPCS: 20610; 99213

== ENCOUNTER → 2024-10-03 13:15 | Outpatient (BNV) | payer OTHER, SELFPAY | PROVIDERS: Visit Provider Radiology Diagnostic Radiology | DX: M25.512 Pain in left shoulder (principal) | CPT/HCPCS: 73030 ==

== ENCOUNTER 2025-01-23 11:35 | Outpatient (REF) | payer OTHER, SELFPAY ==
--- OUTSIDE RECORDS SUMMARY | 2025-01-21 09:45 | XMS_ITS | Encounter Summary ---
Author Organization [employer] Address [address] [place] [address] Care Team Providers Care Aerial Photogrammetrist Name Role Phone Yadira Chamberlain Primary Care Provider [phone] Encounter Details Date Type Department Care Team (Latest Contact Info) Description 01/21/2025 9:45 AM EST Office Visit [facility] [address] [place] [address] Corinna Truong, INSPECTOR WATER POLLUTION CONTROL [address] [place] [address] Degeneration of intervertebral disc of lumbar region with discogenic back pain and lower extremity pain (Primary Dx); Long-term current use of opiate analgesic; MARY (generalized anxiety disorder) Social History Tobacco Use Types Packs/Day Years Used Date Smoking Tobacco: Never Passive Smoke Exposure: Never Smokeless Tobacco: Never Alcohol Use Standard Drinks/Week Comments Never 0 (1 standard drink = 0.6 oz pur e alcohol) Depression Answer Date Recorded Patient Health Questionnaire-9 Score 15 11/28/2024 Patient Health Questionnaire-9 Score 15 11/28/2024 Last PHQ-9: Questionnaire Data Not on file 1 Housing Stability Answer Date Recorded What is your housing situation today? I have kelly ritchie 08/05/[address] you li ve. Do you have problems with any of the following? None of the above 08/05/2024 Food Insecurity Answer Date Recorded Within the past 12 months, y ou worried that your food would run out before you got money to buy more: Never True 08/05/2024 Within the past 12 months,th e food you bought just didn't last and you didn't have enough money to get more: Never True Transportation Answer Date Recorded In the past 12 months, has l ack of transportation kept you from medical appts, meetings, work or from getting things needed for daily living? No 08/05/2024 Utilities Answer Date Recorded In the past 12 months, has t he electric, gas, oil or water company threatened to shut off services in your home? No 08/05/2024 Depression Answer Date Recorded Patient Health Questionnaire-2 Score 6 11/28/2024 Internet Access Answer Date Recorded Internet Access Q1 Yes 08/05/2024 Internet Access Q2 Not on file 08/05/2024 Comments No Sex and Gender Information Value Date Recorded Sex Assigned at Female 12/13/2021 10:39 AM EDT Legal Sex Female 10:39 AM EDT Gender Identity Female 12/13/2021 10:39 AM EDT Sexual Orientation Straight 01/23/2025 10 :53 AM EST documented as of this encounter Progress Notes * Corinna Truong, INSPECTOR WATER POLLUTION CONTROL - 01/21/2025 9:45 AM EST Subjective: Rosalina Perez is a 64 y.o. female w/ PMH insomnia, HTN, GERD, depression with anxiety, complicated grief, and low back pain without sciatica, who presents to the office for - Chronic Pain Clinic Group visits. Initial Group visit: 07/12/23 Session: [facility] Chronic Pain History: Associated Diagnosis: Chronic midline back pain without sciatica, shoulder pain Relevant Imaging: Lumbar MRI April 2021: There is disc degeneration at multiple levels within the lumbar spine. Thereare disc extrusions at T12-L1 and L1-L2 as described above. No canal stenosis. A bulging disc in conjunction with facet degenerative change at L5-S1 causes no more than mild mass effect on the left L5 foraminal nerve root. Otherwise no substantial mass effect on the traversing or foraminal nerve roots elsewhere within the prmoh-pb-qwbr of this examination. XR Right shoulder 09/01/23: Mild glenohumeral and acromioclavicular osteoarthritis. Current pharm tx: Alprazolam 1mg, Tramadol 50mg BID Medication: States taking medication as prescribed. Related Specialists: Ortho referral for right shoulder pain Other substance use: Tobacco: never Marijuana: never Alcohol: never Illicit substances: never Review of Systems Constitutional: Negative for chills and fever. Cardiovascular: Negative for chest pain and palpitations. Gastrointestinal: Negative for diarrhea and vomiting. Musculoskeletal: Positive for back pain and myalgias. Physical Exam Constitutional: Appearance: Normal appearance. HENT: Head: Atraumatic. Pulmonary: Effort: Pulmonary effort is normal. Neurological: Mental Status: She is alert and oriented to person, place, and time. Psychiatric: Mood and Affect: Mood normal. Behavior: Behavior normal. Problem List Items Addressed This Visit Mental Health MARY (generalized anxiety disorder) Current Assessment & Plan - Prescribed Alprazolam 1mg BID PRN (up to 5 additional doses per month). Long-term current use of opiate analgesic Overview Dx: Lumbar DDD Rx: Tramadol 50mg BID Controlled Substance Agreement 06/06/2024 Tier: II (PETROPHYSICIST visits [id number]) - 02/27/24, PCP Chamberlain Additional considerations: BZO- Xanax 1mg BID as well Current Assessment & Plan Timeline: 02/27/24: Group - utox/pill count as expected 05/07/24: Group - utox/pill count as expected 06/04/24: Group - utox/pill count as expected 08/06/24: Group - utox/pill count as expected 01/21/25: Group - utox/pill count as expected Relevant Orders POCT ALICJA-14 Urine Drug Screen (Completed) Neuro Degenerative disc disease, lumbar - Primary Overview Lumbar MRI completed April 2021: There is [...] or foraminal nerve roots elsewhere within the zlplx-ue-vrmf of this examination. Current Assessment & Plan -Good engagement and participation with Group Medical Visit model -Encouraged multifactorial approach to pain control including pharm and non- pharm modalities -UTOX and Tramadol Pill count as expected Follow up: 1-3 months for Group Chronic Pain Clinic. Follow up as scheduled with PCP, sooner as needed. * Cristine Silva RN - 01/21/2025 9:45 AM EST .PETROPHYSICIST diesel mechanic construction: PDMP reviewed today. Last fill date: 01/01/25 (Tramadol 50mg bid) count was (29), anticipated (15) to be remaining. Xanax 1mg bid (5 additional tab/ month). Count was 58, 45 expected. .UTOX completed. Positive for (BZO), Negative for AMP, BAR, BUP, DAVE, FTY, MDMA, MET, MOP, MTD, OXY, PCP, TCA, THC. UTOX as expected. documented in this encounter Miscellaneous Notes * Assessment & Plan Note - MICH Santiago - 01/21/2025 7:11 PM ESTAssociated Problem(s): Degenerative disc disease, lumbar -Good engagement and participation with Group Medical Visit model -Encouraged multifactorial approach to pain control including pharm and non- pharm modalities -UTOX and Tramadol Pill count as expected * Assessment & Plan Note - MICH Santiago - 01/21/2025 7:10 PM ESTAssociated Problem(s): Long-term current use of opiate analgesic Timeline: 02/27/24: Group - utox/pill count as expected 05/07/24: Group - utox/pill count as expected 06/04/24: Group - utox/pill count as expected 08/06/24: Group - utox/pill count as expected 01/21/25: Group - utox/pill count as expected * Assessment & Plan Note - MICH Santiago - 01/21/2025 7:10 PM ESTAssociated Problem(s): MARY (generalized anxiety disorder) - Prescribed Alprazolam 1mg BID PRN (up to 5 additional doses per month). documented in this encounter Plan of Treatment Upcoming Encounters Date Type Department Care Team (Late st Contact Info) Description 03/25/2025 9:45 AM EST Office Visit [facility] [address] [place] [address] documented as of this encounter Procedures Procedure Name Priority Date/Time Associated Diagnosis Comments POCT ALICJA-14 URINE DRUG SCREEN Routine 01/21/2025 10:40 AM EST Long-term current use of opiate analgesic documented in this encounter Results * (ABNORMAL) POCT ALICJA-14 Urine Drug Screen (01/21/2025 10:40 AM EST) THC Negative Negative Cocaine Screen, Urine Negative Negative Opiate Screen, Urine Negative Negative Methamphetamine Screen Urine Negative Negative Amphetamine Screen, Urine Negative Negative Benzodiazepines Screen, Urine Positive(A) Negative Comment:Rx Barbiturate Screen, Urine Negative Negative Methadone Screen, Urine Negative Negative Buprenophine Screen, Urine Negative Negative TCA, Urine Negative Negative MDMA Urine Negative Negative ng/mL Oxycodone Screen, Urine Negative Negative Phencyclidine (PCP), Urine Negative Negative Propoxyphene, Urine Negative Negative Fentanyl, Urine Negative Negative Urine Urine specimen obtained by clean catch procedure / Unknown 01/21/2025 10:40 AM EST Narrative Cristine Silva RN - 01/21/2025 10:40 AM EST .UTOX cup Lot#[id number] Exp. 01/13/26 Internal Pass Control Corinna EPPS POINT OF CARE TEST ENTER/EDIT ORDERABLES Final Result documented in this encounter Visit Diagnoses Diagnosis Degeneration of intervertebral disc of lumbar region with discogenic back pain and lower extremity pain- Primary Long-term current use of opiate analgesic Encounter for long-term (current) use of other medications MARY (generalized anxiety disorder) Generalized anxiety disorder documented in this encounter Additional Health Concerns Assessment Noted Time PHQ-9 Depression Total Score: 15 025 3:31 PM EDT documented as of this encounter Care Teams Aerial Photogrammetrist Relationship Specialty Start Date End Date Yadira Chamberlain ANP [address] [place] [address] PCP - General Family Medicine 02/22/21 documented as of this encounter
--- OUTSIDE RECORDS SUMMARY | 2025-01-23 11:00 | XMS_ITS | Encounter Summary ---
Author Organization [employer] Address [address] [place] [address] Care Team Providers Care Unix Administrator Name Role Phone Yadira Chamberlain PAULA Primary Care Provider [phone] Encounter Details Date Type Department Care Team (Late st Contact Info) Description 01/23/2025 11:00 AM EST Office Visit [facility] [address], [place] [phone] Bren Grigsby DO [address], [place] [phone] Hot flashes (Primary Dx) Social History Tobacco Use Types [...] AM EST documented as of this encounter Last Filed Vital Signs Vital Sign Reading Time Taken Comments Blood Pressure 128/70 01/23/2025 11:00 AM EST Pulse 69 01/23/2025 11:00 AM EST Temperature 36.9 C (98.4 F) 01/23/2025 11:00 AM EST Respiratory Rate 20 01/23/2025 11:00 AM EST Oxygen Saturation 95% 01/23/2025 11:00 AM EST Inhaled Oxygen Concentration - - Weight 73.9 kg (163 lb) 01/23/2025 11:00 AM EST Height 157.5 cm (5' 2 ) 01/23/2025 11:00 AM EST Body Mass Index 29.81 01/23/2025 11:00 AM EST documented in this encounter Progress Notes * Bren Grigsby, DO - 01/23/2025 11:00 AM EST SUBJECTIVE: Rosalina Perez is a 64 y.o. year old female who presents for sick visit. HPI She comes to [place] c/o hot flashes. She was seen by CNM in November for MARINE OIL TERMINAL SUPERINTENDENT exam and c/o vasomotor symptoms for many years. She was advised HRT contraindicated due to CV risk. She was recommended to trial acupuncture and plans to trial next week. She says that she has been having hot flashes for the last 27 years. She reports LMP at age 50. Shesays that she had her ovaries removed in [place] and she was given hormones at that time. She says that her hot flashes are all day and all night; they just come and go. She had to buy somemens shirts as they tolerate the sweating better. 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 Her PCP tried her on an anti-depressant previously to help with the hot flashes but doesn't feel that it did anything. She doesn't recall the name of the medication. She uses mirtazapine for sleep but it doesn't really help. History provided by: Patient and relative internal control manager used: No Review of Systems Constitutional: Negative for chills, fatigue and fever. HENT: Negative for congestion. Respiratory: Negative for cough and shortness of breath. Cardiovascular: Negative for chest pain and leg swelling. Gastrointestinal: Negative for abdominal pain, diarrhea and vomiting. Neurological: Negative for headaches. Patient Active Problem List Diagnosis Primary insomnia Depression with anxiety Chronic GERD Globus sensation Chest pain Essential hypertension Degenerative disc disease, lumbar MARY (generalized anxiety disorder) Complicated grief Periodontal disease Long-term current use of opiate analgesic Acute shoulder pain Chest wall pain Screening for malignant neoplasm of colon Chronic back pain Thoracic back pain Painful arc syndrome of right shoulder Sciatica Strain of lumbar region Atypical chest pain GERD (gastroesophageal reflux disease) Upper abdominal pain Depression, unspecified Allergies Allergen Reactions Temazepam Palpitations Palpitations, generalized itchiness OBJECTIVE Vitals: 01/23/25 1100 BP: 128/70 BP Location: Right arm Patient Position: Sitting BP Cuff Size: Adult Pulse: 69 Resp: 20 Temp: 98.4 ??F (36.9 ??C) TempSrc: Oral SpO2: 95% Weight: 163 lb (73.9 kg) Height: 5' 2 (1.575 m) Physical Exam Constitutional: General: She is not in acute distress. Appearance: Normal appearance. Neck: Thyroid: No thyromegaly or thyroid tenderness. Cardiovascular: Rate and Rhythm: Normal rate and regular rhythm. Heart sounds: Normal heart sounds. No murmur heard. Pulmonary: Effort: Pulmonary effort is normal. Breath sounds: Normal breath sounds. No wheezing or rhonchi. Musculoskeletal: Cervical back: Neck supple. No tenderness. Lymphadenopathy: Cervical: No cervical adenopathy. Neurological: General: No focal deficit present. Mental Status: She is alert and oriented to person, place, and time. Cranial Nerves: No cranial nerve deficit. Motor: No weakness. Gait: Gait normal. Psychiatric: Mood and Affect: Mood normal. ASSESSMENT/PLAN Diagnoses and all orders for this visit: Hot flashes Likely menopausal -provided reassurance -advised pt that HRT is contraindicated due to increased CV risk -she agrees to trial alternate medication, will begin low dose venlafaxine nightly -consider trial gabapentin if no improvement -encouraged trial acupuncture -advised rtc if symptoms change or worsen, she agrees with plans - T4, Free; Future - TSH; Future - Vitamin D, 25-Hydroxy, Total, Immunoassay; Future - Hepatic Function Panel; Future - CBC; Future - Basic Metabolic Panel; Future - venlafaxine XR (Effexor XR) 37.5 MG 24 hr capsule; Take 1 capsule (37.5 mg) by mouth at bedtime. Do not crush or chew. F/U with PCP in 1 mos or sooner prn Current Outpatient Medications: ALPRAZolam (Xanax) 1 MG tablet, TAKE 1 TABLET BY MOUTH TWICE DAILY NEEDED FOR ANXIETY MAY TAKE ADDITIONAL TABLET UP TO 5 TIMES PER MONTH NEEDED, Disp: 65 tablet, Rfl: 0 Aspirin Low Dose 81 MG EC tablet, TAKE 1 TABLET BY MOUTH DAILY, Disp: 90 tablet, Rfl: 1 famotidine (Pepcid) 40 MG tablet, TAKE 1 TABLET BY MOUTH AT BEDTIME, Disp: 90 tablet, Rfl: 1 isosorbide mononitrate ER (Imdur) 30 MG 24 hr tablet, Take 1 tablet (30 mg) by mouth in the morning. Do not crush or chew., Disp: 90 tablet, Rfl: 2 losartan-hydroCHLOROthiazide (Hyzaar) 50-12.5 MG tablet, TAKE 1 TABLET BY MOUTH EVERY DAY, Disp: 90tablet, Rfl: 3 mirtazapine (Remeron) 7.5 MG tablet, TAKE 1 TABLET BY MOUTH AT BEDTIME, Disp: 90 tablet, Rfl: 3 naloxone (Narcan) 4 mg/0.1 mL nasal spray, Administer 1 spray (4 mg) into affected nostril(s) if needed for opioid reversal. May repeat every 2-3 minutes if needed, alternating nostrils, until medical assistance becomes available., Disp: 2 each, Rfl: 2 nitroglycerin (Nitrostat) 0.4 MG SL tablet, place 1 tablet under tongue once at 1st sign of attack;may repeat every 5 minutes up to 3 tabs/15min; if no relief go to ED, Disp: 100 tablet, Rfl: 0 simvastatin (Zocor) 20 MG tablet, TAKE 1 TABLET BY MOUTH EVERY DAY, Disp: 90 tablet, Rfl: 1 traMADol (Ultram) 50 MG tablet, Take 1 tablet (50 mg) by mouth every 12 (twelve) hours if needed for severe pain. Do not start before January 01, 2025., Disp: 56 tablet, Rfl: 0 documented in this encounter Plan of Treatment Upcoming Encounters Date Type Department Care Team (Late st Contact Info) Description 03/25/2025 9:45 AM EST Office Visit [facility] [address] [place] [phone] documented as of this encounter Procedures Procedure Name Priority Date/Time Associated Diagnosis Comments VITAMIN D,25-OH,TOTAL,IA Routine 01/23/2025 11:39 AM EST Hot flashes CBC Routine 01/23/2025 11:39 AM EST Hot flashes TSH Routine 01/23/2025 11:39 AM EST Hot flashes T4, FREE Routine 01/23/2025 11:39 AM EST Hot flashes HEPATIC FUNCTION PANEL Routine 01/23/2025 11:39 AM EST Hot flashes BASIC METABOLIC PANEL Routine 01/23/2025 11:39 AM EST Hot flashes documented in this encounter Results * (ABNORMAL) Basic Metabolic Panel (01/23/2025 11:39 AM EST) Sodium 140 135 - 145 mmol/L [facility] Potassium 3.8 3.3 - 5.1 mmol/L [facility] Chloride 105 96 - 108 mmol/L [facility] Carbon Dioxide 29 22 - 29 mmol/L [facility] Anion Gap 10(L) 12 - 20 [facility] Urea Nitrogen (BUN) 13 9 - 16 mg/dL [facility] Creatinine, Serum 0.64 0.5 - 1.4 mg/dL [facility] Estimated Glomerular Filt Rate >60 [facility] Comment:Chronic Kidney Disea se: Estimated GFR < 60 mL/min/1.16g5Oxogns Kidney Disease: Estimated GFR < 15 mL/min/1.73m2 Glucose 93 60 - 115 mg/dL [facility] Calcium 9.5 8.4 - 10.2 mg/dL [facility] Blood Venous blood specimen / Unknown 01/23/2025 11:39 AM EST 01/23/2025 2:04 PM EST us Bren Grigsby DO LAB BLOOD ORDERABLES Final R esult [facility] [address] [place], [place] [phone] * (ABNORMAL) CBC (01/23/2025 11:39 AM EST) White Blood Count 6.7 4.8 - 10.8 X10*3/uL [facility] Red Blood Count 4.87 4.20 - 5.50 X10*6/uL [facility] Hemoglobin 13.8 12.0 - 16.0 g/dl [facility] Hematocrit 42.6 37.0 - 47.0 % [facility] Mean Corpuscular Volume 87.5 80.0 - 98.0 fL [facility] Mean Corpuscular Hemoglobin 28.3 27.0 - 33.0 pg [facility] Mean Corpuscular HGB Conc 32.4 31.0 - 35.0 g/dl [facility] Red Cell Distribution Width 12.5 11.0 - 16.0 % [facility] Platelet Count 226 160 - 400 X10*3/uL [facility] Mean Platelet Volume 12.6(H) 9.4 - 12.3 fL [facility] NRBC Pct Auto 0.0 0.0 - 0.2 /100WBC [facility] NRBC Abs Auto 0.000 0.0 - 0.012 X10*3/uL [facility] Blood Venous blood specimen / Unknown 01/23/2025 11:39 AM EST 01/23/2025 2:04 PM EST Bren Grigsby DO LAB BLOOD ORDERABLES Final R esult Performing Organization Address City/[facility]/ZIP Co de Phone Number [facility] [address] [place] [phone] * Hepatic Function Panel (01/23/2025 11:39 AM EST) Bilirubin, Total 0.3 0.0 - 1.0 mg/dL [facility] Bilirubin, Direct 0.1 0.0 - 0.5 mg/dL [facility] Aspartate Amino Transferase 27 5 - 31 U/L [facility] Alanine Aminotransferase 28 0 - 31 U/L [facility] Total Protein 7.6 6.5 - 8.0 g/dL [facility] Albumin Level 4.3 3.5 - 5.0 g/dL [facility] Alkaline Phosphatase 89 39 - 117 U/L [facility] Blood Venous blood specimen / Unknown 01/23/2025 11:39 AM EST 01/23/2025 2:04 PM EST Bren Grigsby DO LAB BLOOD ORDERABLES Final R esult Performing Organization Address [facility]/ZIP Co de Phone Number [facility] [address] [place] [phone] * Vitamin D, 25-Hydroxy, Total, Immunoassay (01/23/2025 11:39 AM EST) Vitamin D 25-OH Total 31.5 >30 ng/mL [facility] Comment: Health Based Reference Values*< 20 ng/mL Phclwhmoz85-00 ng/mL Insufficient> 30 ng/mL Sufficient*Shelbie [place] Engl J Med. 2007;357:266-280There is no well-established upper level of normal vitamin Dlevels. Some laboratories use 50 ng/mL as an upper limit ofnormal. However, toxicity is patient-dependent and may occurat any level. Careful correlation with the patient'spresentation is necessary and, if there is concern forvitamin D toxicity, treatment should be consideredirrespective of the serum level.Care must be taken in interpreting Vitamin D results fromdifferent laboratories and methodologies. Published datademonstrated that results from patients undergoinghemodialysis may show a negative bias when tested withvarious automated 25-OH vitamin D assays when compared toLC-MS/MS.When testing samples from patients whose predominant form ofVitamin D is Vitamin D2, such as patients receiving VitaminD2 supplementation, results that are subtherapeutic shouldbe confirmed with another method such as LC-MS/MS. Blood Venous blood specimen / Unknown 01/23/2025 11:39 AM EST 01/23/2025 2:04 PM EST Bren Grigsby LAB BLOOD ORDERABLES Final R esult Performing Organization Address [facility] Co de Phone Number [facility] [address] [place] [phone] * TSH (01/23/2025 11:39 AM EST) Thyroid Stimulating Hormone 1.56 0.32 - 4.0 uIU/mL [facility] Comment:TSH 3rd Generation ( [facility]) Blood Venous blood specimen / Unknown 01/23/2025 11:39 AM EST 01/23/2025 2:04 PM EST Bren Grigsby LAB BLOOD ORDERABLES Final R esult Performing Organization Address [facility]/ZIP Co de Phone Number [facility] [address] [place] [phone] * T4, Free (01/23/2025 11:39 AM EST) Free T4 (Free Thyroxine) 0.93 0.71 - 1.85 ng/dL [facility] Blood Venous blood specimen / Unknown 01/23/2025 11:39 AM EST 01/23/2025 2:04 PM EST us Bren Grigsby DO LAB BLOOD ORDERABLES Final R esult [facility] [address] [place] [phone] documented in this encounter Visit Diagnoses Diagnosis Hot flashes- Primary documented in this encounter Additional Health Concerns Assessment Noted Time PHQ-9 Depression Total Score: 15 025 3:31 PM EDT documented as of this encounter Care Teams Unix Administrator Relationship Specialty Start Date End Date Yadira Chamberlain ANP [address] [place] [address] PCP - General Family Medicine 02/22/21 documented as of this encounter
[2025-01-23 14:11] LABS: Hematocrit 42.6 % (37.0-47.0); Hemoglobin 13.8 g/dl (12.0-16.0); Mean Corpuscular HGB Conc 32.4 g/dl (31.0-35.0); Mean Corpuscular Hemoglobin 28.3 pg (27.0-33.0); Mean Corpuscular Volume 87.5 fL (80.0-98.0); NRBC Abs Auto 0.000 X10*3/uL (0.0-0.012); NRBC Pct Auto 0.0 /100WBC (0.0-0.2); Platelet Count 226 X10*3/uL (160-400); Red Blood Count 4.87 X10*6/uL (4.20-5.50); White Blood Count 6.7 X10*3/uL (4.8-10.8)
[2025-01-23 14:44] LABS: Alanine Aminotransferase 28 U/L (0-31); Albumin Level 4.3 g/dL (3.5-5.0); Alkaline Phosphatase 89 U/L (39-117); Anion Gap 10 (12-20); Aspartate Amino Transferase 27 U/L (5-31); Blood Urea Nitrogen 13 mg/dL (9-16); Calcium 9.5 mg/dL (8.4-10.2); Carbon Dioxide 29 mmol/L (22-29); Chloride 105 mmol/L (96-108); Cholesterol 197 mg/dL (<200); Estimated Glomerular Filt Rate > 60; HDL Cholesterol 51 mg/dL (>40); Potassium 3.8 mmol/L (3.3-5.1); Sodium 140 mmol/L (135-145); Total Protein 7.6 g/dL (6.5-8.0); Triglycerides 130 mg/dL (<150)
[2025-01-23 14:47] LABS: Free T4 (Free Thyroxine) 0.93 ng/dL (0.71-1.85); Thyroid Stimulating Hormone 1.56 uIU/mL (0.32-4.0)
--- OUTSIDE RECORDS SUMMARY | 2025-01-23 17:53 | XMS_ITS | Encounter Summary ---
Author Organization [employer] [facility] Address [address] [facility] 7t [place] [address] Care Team Providers Care Hearing Dog Trainer Name Role Phone Yadira Chamberlain Primary Care Provider [phone] Encounter Details Date Type Department Care Team (Late st Contact Info) Description 05/11/[address] [address] Yadira Chamberlain ANP [address] [place] [phone] Social History Tobacco Use Types Packs/Day Years [...] Description 03/25/2025 9:45 AM EST Office Visit [address] [address] documented as of this encounter Visit Diagnoses Not on filedocumented in this encounter Care Teams Hearing Dog Trainer Relationship Specialty Start Date End Date Yadira Chamberlain ANP [address] [place] [phone] PCP - General Family Medicine 02/22/21 Gia Nino RN Care Manager 11/29/22 02/27/23 documented as of this encounter
--- OUTSIDE RECORDS SUMMARY | 2025-01-23 17:53 | XMS_ITS | Encounter Summary ---
Author Organization [employer] Address [address] [place] [address] [address] [place] [address] Care Team Providers Care Acute Care Surgeon Name Role Phone Yadira Chamberlain Primary Care Provider [phone] Reason for Visit * Reason Comments Med Refill Encounter Details Date Type Department Care Team (Late Contact Info) Description 02/15/2022 Refill [facility] [address] [place] [address] Yadira Chamberlain ANP [address] [place] [address] Chronic bilateral low back pain without sciatica [...] Description 03/25/2025 9:45 AM EST Office Visit [facility] [address] [place] [address] documented as of this encounter Visit Diagnoses Diagnosis Chronic bilateral low back pain without sciatica documented in this encounter Care Teams Acute Care Surgeon Relationship Specialty Start Date End Date Yadira Chamberlain ANP [address] [place] [phone] PCP - General Family Medicine 02/22/21 Gia Nino tap dancer 11/29/22 02/27/23 documented as of this encounter
--- OUTSIDE RECORDS SUMMARY | 2025-01-23 17:53 | XMS_ITS | Encounter Summary ---
Author Organization [employer] [facility] Address [address] [place] [address] [address] [place] [address] Care Team Providers Care Poiser Balance Name Role Phone Yadira Chamberlain Primary Care Provider [phone] Reason for Visit * Reason Comments Med Refill Encounter Details Date Type Department Care Team (Late Contact Info) Description 06/21/2022 Refill [facility] [address] [place] [address] Glenis Rico MD [address] [place] [address] Anxiety Social History Tobacco Use Types Packs/Day [...] Description 03/25/2025 9:45 AM EST Office Visit [facility] [address] [place] [address] documented as of this encounter Visit Diagnoses Diagnosis Anxiety Anxiety state, unspecified documented in this encounter Care Teams Poiser Balance Relationship Specialty Start Date End Date Yadira Chamberlain ANP [address] [place] [address] PCP - General Family Medicine 02/22/21 Gia Nino RN Care Manager 11/29/22 02/27/23 documented as of this encounter
--- OUTSIDE RECORDS SUMMARY | 2025-01-23 17:54 | XMS_ITS | Encounter Summary ---
Author Organization [employer] Address [address] [facility] 7t [place] [address] Care Team Providers Care Horizontal Boring Mill Operator Name Role Phone Yadira Chamberlain Primary Care Provider [phone] Reason for Visit * Reason Comments Med Refill Encounter Details Date Type Department Care Team ([facility] st Contact Info) Description 07/26/2023 Refill [facility] [address] [place], [place] [phone] Yadira Chamberlain ANP [address] [place] [address] Chronic bilateral low back pain without sciatica [...] Description 03/25/2025 9:45 AM EST Office Visit [facility] [address] [place] [address] documented as of this encounter Visit Diagnoses Diagnosis Chronic bilateral low back pain without sciatica documented in this encounter Additional Health Concerns Assessment Noted Time PHQ-9 Depression Total Score: 8 01/19/20 23 4:02 PM EST documented as of this encounter Care Teams Horizontal Boring Mill Operator Relationship Specialty Start Date End Date Yadira Chamberlain ANP [address] [place] [address] PCP - General Family Medicine 02/22/21 documented as of this encounter
--- OUTSIDE RECORDS SUMMARY | 2025-01-23 17:54 | XMS_ITS | Encounter Summary ---
Author Organization [employer] Address [address] [facility] 7t [place] [address] Care Team Providers Care Lime Mixer Tender Name Role Phone Yadira Chamberlain Primary Care Provider [phone] Reason for Visit * Reason Comments Med Refill Encounter Details Date Type Department Care Team ([facility] st Contact Info) Description 07/17/2023 Refill [facility] [address] [place], [place] [phone] Yadira Chamberlain ANP [address] [place], [place] [phone] Anxiety Social History Tobacco Use Types Packs/Day [...] Description 03/25/2025 9:45 AM EST Office Visit [facility] [address] [place] [address] documented as of this encounter Visit Diagnoses Diagnosis Anxiety Anxiety state, unspecified documented in this encounter Additional Health Concerns Assessment Noted Time PHQ-9 Depression Total Score: 8 01/19/20 23 4:02 PM EST documented as of this encounter Care Teams Lime Mixer Tender Relationship Specialty Start Date End Date Yadira Chamberlain ANP [address] [place] [phone] PCP - General Family Medicine 02/22/21 documented as of this encounter
--- OUTSIDE RECORDS SUMMARY | 2025-01-23 17:54 | XMS_ITS | Encounter Summary ---
Author Organization [employer] Address [address] [facility] 7t [place] [address] Care Team Providers Care Railroad Car Painter Name Role Phone Yadira Chamberlain ANP Primary Care Provider [phone] Reason for Visit * Reason Onset Date Comments Med Refill 07/11/2023 Encounter Details Date Type Department Care Team ([facility] st Contact Info) Description 07/11/2023 Telephone [facility] [address] [place], [place] [phone] Yadira Chamberlain ANP [address] [place], [place] [phone] Med Refill Social History Tobacco Use Types [...] AM EST documented as of this encounter Functional Status [...] 50 MG tablet To be sent to: [facility] - [place], [place] - [address] [facility] documented in this encounter Plan of Treatment Upcoming Encounters Date Type Department Care Team (Late st Contact Info) Description 03/25/2025 9:45 AM EST Office Visit [facility] [address] [place] [address] documented as of this encounter Visit Diagnoses Not on filedocumented in this encounter Additional Health Concerns Assessment Noted Time PHQ-9 Depression Total Score: 8 01/19/20 23 4:02 PM EST documented as of this encounter Care Teams Railroad Car Painter Relationship Specialty Start Date End Date Yadira Chamberlain ANP [address] [place] [address] PCP - General Family Medicine 02/22/21 documented as of this encounter
--- OUTSIDE RECORDS SUMMARY | 2025-01-23 17:54 | XMS_ITS | Encounter Summary ---
Author Organization [facility] Address [address] [facility] [address]t [place] [address] Care Team Providers Care Powder Worker Tnt Name Role Phone Yadira Chamberlain Primary Care Provider [phone] Encounter Details Date Type Department Care Team ([facility] Contact Info) Description 03/04/2022 Orders Only [facility] [address] [place] [address] Cinthya Mayers LPN Social History Tobacco Use Types Packs/Day Years Used Date Smoking Tobacco: Never Comments Unknown Sex and Gender Information Value Date Recorded Sex Assigned at Female 12/13/2021 10:39 AM EDT Legal Sex Female 10:39 AM EDT Gender Identity Female 12/13/2021 10:39 AM EDT Sexual Orientation Straight 01/23/2025 10 :53 AM EST COVID-19 Exposure Response Date Recorded In the last 10 days, have yo u been in contact with someone who was confirmed or suspected to have Coronavirus/COVID-19? No / Unsure 02/24/2022 10:48 AM EST documented as of this encounter Plan of Treatment Upcoming Encounters Date Type Department Care Team (Late st Contact Info) Description 03/25/2025 9:45 AM EST Office Visit [facility] [address] [place] [address] documented as of this encounter Visit Diagnoses Not on filedocumented in this encounter Care Teams Powder Worker Tnt Relationship Specialty Start Date End Date Yadira Chamberlain ANP [address] [place] [address] PCP - General Family Medicine 02/22/21 Gia Nino gage designer 11/29/22 02/27/23 documented as of this encounter
--- OUTSIDE RECORDS SUMMARY | 2025-01-23 17:54 | XMS_ITS | Encounter Summary ---
Author Organization [email or web address] [facility] Address [address] [place] [address] [address] [place] [address] Care Team Providers Care Dsp Engineer Name Role Phone Yadira Chamberlain Primary Care Provider [phone] Reason for Visit * Reason Comments Med Refill Encounter Details Date Type Department Care Team (Late Contact Info) Description 03/22/2022 Refill [facility] [address] [place] [phone] Yadira Chamberlain ANP [address] [place], [place] [phone] Chronic bilateral low back pain without sciatica [...] Description 03/25/2025 9:45 AM EST Office Visit [facility] [address] [place] [phone] documented as of this encounter Visit Diagnoses Diagnosis Chronic bilateral low back pain without sciatica documented in this encounter Care Teams Dsp Engineer Relationship Specialty Start Date End Date Yadira Chamberlain ANP [address] [place] [address] PCP - General Family Medicine 02/22/21 Gia Nino uke operator 11/29/22 02/27/23 documented as of this encounter
--- OUTSIDE RECORDS SUMMARY | 2025-01-23 17:54 | XMS_ITS | Encounter Summary ---
Author Organization [employer] Address 75 [facility] 7t h Floor [address] Care Team Providers Care Coal Briquette Machine Operator Name Role Phone Yadira Chamberlain ANP Primary Care Provider [phone] Reason for Visit * Reason Onset Date Comments Nurse Triage 07/24/2023 Encounter Details Date Type Department Care Team ([facility] st Contact Info) Description 07/24/2023 Telephone [facility] [address] [place], [place] [phone] Yadira Chamberlain ANP [address] [place], [place] [phone] Nurse Triage Social History Tobacco Use Types [...] AM EST documented as of this encounter Miscellaneous Notes * Telephone Encounter - Lziz Miller RN - 07/24/2023 2:43 PM EDT Triage call with Labette Vineyardist [place] [id number]. Pt reports right shoulder pain for several weeks. Pt denies injury. Pt reports shoulder pain makes lifting right hand difficult. Pt is able to lift a cup off the counter but, is unable to lift anything higher than counter level. Pt denies numbness, redness swelling. Pt reports this is interfering with daily activities. Pt is advised to come to [facility] which is open till 8pm this evening. Pt agrees with disposition will come to [facility] around 5-6pm. Unableto verify insurance due to [...] pain now The caller accepted this outcome Mauritian speaker documented in this encounter Plan of Treatment Upcoming Encounters Date Type Department Care Team (Late st Contact Info) Description 03/25/2025 9:45 AM EST Office Visit [facility] [address] [place] [address] documented as of this encounter Visit Diagnoses Not on filedocumented in this encounter Additional Health Concerns Assessment Noted Time PHQ-9 Depression Total Score: 8 01/19/20 23 4:02 PM EST documented as of this encounter Care Teams Coal Briquette Machine Operator Relationship Specialty Start Date End Date Yadira Chamberlain ANP [address] [place] [address] PCP - General Family Medicine 02/22/21 documented as of this encounter
--- OUTSIDE RECORDS SUMMARY | 2025-01-23 17:54 | XMS_ITS | Encounter Summary ---
Author Organization [employer] Address 75 [facility] 7t [place] [address] Care Team Providers Care Lead Android Developer Name Role Phone Yadira Chamberlain Primary Care Provider [phone] Encounter Details Date Type Department Care Team (Late Contact Info) Description 04/11/[address] [facility] & PEDS [address] [place] [address] Bren Barrett LPN Social History Tobacco Use [...] Description 03/25/2025 9:45 AM EST Office Visit [facility] MEDICINE [address] [place] [address] documented as of this encounter Visit Diagnoses Not on filedocumented in this encounter Care Teams Lead Android Developer Relationship Specialty Start Date End Date Yadira Chamberlain ANP [address] [place] [address] PCP - General Family Medicine 02/22/21 Gia Nino car detailer 11/29/22 02/27/23 documented as of this encounter
--- OUTSIDE RECORDS SUMMARY | 2025-01-23 17:55 | XMS_ITS | Encounter Summary ---
Author Organization [employer] Address 75 [facility] 7t [place] [address] Care Team Providers Care Waste Examiner Name Role Phone Yadira Chamberlain ANP Primary Care Provider [phone] Reason for Visit * Reason Onset Date Comments Med Refill 08/22/2023 Encounter Details Date Type Department Care Team ([facility] st Contact Info) Description 08/22/2023 Telephone [facility] MEDICINE 230 [place], [place] [phone] Yadira hCamberlain ANP 230 [place], [place] [phone] Med Refill Social History Tobacco Use Types [...] 50 MG tablet To be sent to: [facility] Pharmacy documented in this encounter Plan of Treatment Upcoming Encounters Date Type Department Care Team (Late st Contact Info) Description 03/25/2025 9:45 AM EST Office Visit [facility] MEDICINE [address] [place] [address] documented as of this encounter Visit Diagnoses Not on filedocumented in this encounter Additional Health Concerns Assessment Noted Time PHQ-9 Depression Total Score: 8 01/19/20 23 4:02 PM EST documented as of this encounter Care Teams Waste Examiner Relationship Specialty Start Date End Date Yadira Chamberlain ANP [address] [place] [address] PCP - General Family Medicine 02/22/21 documented as of this encounter
--- OUTSIDE RECORDS SUMMARY | 2025-01-23 17:55 | XMS_ITS | Encounter Summary ---
Author Organization [employer] Address [address] [facility] 7t [place] [address] Care Team Providers Care Jacquard Loom Carpet Weaver Name Role Phone Yadira Chamberlain Primary Care Provider [phone] Encounter Details Date Type Department Care Team (Late st Contact Info) Description 09/06/2023 Orders Only [facility] MEDICINE [address] [place], [place] [phone] Yadira Chamberlain ANP [address] [place], [place] [phone] Social History Tobacco Use Types Packs/Day Years [...] Description 03/25/2025 9:45 AM EST Office Visit [facility] MEDICINE [address] [place] [address] documented as of this encounter Visit Diagnoses Not on filedocumented in this encounter Additional Health Concerns Assessment Noted Time PHQ-9 Depression Total Score: 8 01/19/20 23 4:02 PM EST documented as of this encounter Care Teams Jacquard Loom Carpet Weaver Relationship Specialty Start Date End Date Yadira Chamberlain ANP [address] [place] [address] PCP - General Family Medicine 02/22/21 documented as of this encounter
--- OUTSIDE RECORDS SUMMARY | 2025-01-23 17:55 | XMS_ITS | Encounter Summary ---
Author Organization [employer] Address 75 [facility] 7t [place] [address] Care Team Providers Care Professor Of Psychiatry Name Role Phone Yadira Chamberlain ANP Primary Care Provider [phone] Reason for Visit * Reason Onset Date Comments Med Refill 08/15/2023 Encounter Details Date Type Department Care Team ([facility] st Contact Info) Description 08/15/2023 Telephone [facility] MEDICINE [address] [place], [place] [phone] Yadira Chamberlain ANP 230 [place], [place] [phone] Med Refill Social History Tobacco Use Types [...] 1 MG tablet To be sent to: [facility] Pharmacy documented in this encounter Plan of Treatment Upcoming Encounters Date Type Department Care Team (Late st Contact Info) Description 03/25/2025 9:45 AM EST Office Visit [facility] MEDICINE [address] [place] [address] documented as of this encounter Visit Diagnoses Not on filedocumented in this encounter Additional Health Concerns Assessment Noted Time PHQ-9 Depression Total Score: 8 01/19/20 23 4:02 PM EST documented as of this encounter Care Teams Professor Of Psychiatry Relationship Specialty Start Date End Date Yadira Chamberlain ANP [address] [place] [address] PCP - General Family Medicine 02/22/21 documented as of this encounter
--- OUTSIDE RECORDS SUMMARY | 2025-01-23 17:55 | XMS_ITS | Encounter Summary ---
Author Organization [employer] Address 75 [facility] 7t [place] [address] Care Team Providers Care Economic Forecaster Name Role Phone Yadira Chamberlain Primary Care Provider [phone] Reason for Visit * Reason Onset Date Comments Med Refill 09/12/2023 Encounter Details Date Type Department Care Team ([facility] st Contact Info) Description 09/12/2023 Telephone [facility] MEDICINE [address] [place], [place] [phone] Yadira Chamberlain ANP [address] [place], [place] [phone] Med Refill Social History Tobacco Use Types [...] 1 MG tablet To be sent to: [facility] - [place], [place] - [address] [place] [address] documented in this encounter Plan of Treatment Upcoming Encounters Date Type Department Care Team (Late st Contact Info) Description 03/25/2025 9:45 AM EST Office Visit [facility] MED[facility]INE [address] [place] [address] documented as of this encounter Visit Diagnoses Not on filedocumented in this encounter Additional Health Concerns Assessment Noted Time PHQ-9 Depression Total Score: 8 01/19/20 23 4:02 PM EST documented as of this encounter Care Teams Economic Forecaster Relationship Specialty Start Date End Date Yadira Chamberlain ANP [address] [place] [address] PCP - General Family Medicine 02/22/21 documented as of this encounter
--- OUTSIDE RECORDS SUMMARY | 2025-01-23 17:56 | XMS_ITS | Encounter Summary ---
Author Organization [employer] Address 75 [facility] 7t [place] [address] Care Team Providers Care Sheet Metal Layout Worker Name Role Phone Yadira Chamberlain Primary Care Provider [phone] Encounter Details Date Type Department Care Team (Late st Contact Info) Description 01/23/2025 Orders Only [facility] MEDICINE [address] [place], [place] [phone] Yadira Chamberlain ANP 230 [place], [place] [phone] Social History Tobacco Use Types Packs/Day Years [...] 9:45 AM EST Office Visit [facility] MEDICINE [address] [place] [address] documented as of this encounter Procedures Procedure Name Priority Date/Time Associated Diagnosis Comments LIPID PANEL, STANDARD Routine 01/23/2025 11:39 AM EST documented in this encounter Results * (ABNORMAL) Lipid Panel, Standard (01/23/2025 11:39 AM EST) Triglycerides 130 <150 mg/dL [facility] Comment:Desirable Triglyceri de: less than 150 mg/dLBorderline High Triglyceride 150-199 mg/dLHigh Triglyceride: 200-499 mg/dLVery High Triglyceride: greater than or equal to 5OO mg/dL Cholesterol 197 <200 mg/dL [facility] Comment:Desirable Cholestero l: less than 200 mg/dLBorderline High Cholesterol: 200-239 mg/dLHigh Cholesterol: greater than 239 mg/dL LDL Cholesterol Calculated 120(H) <100 mg/dL [facility] Comment:Desirable LDL: less than 100 mg/dLNear Optimal/Above Optimal LDL: 110- 129 mg/dLBorderline High LDL: 130-159 mg/dLHigh LDL: 160-189 mg/dLVery High LDL: greater than or equal to 190 mg/dL HDL Cholesterol 51 >40 mg/dL [facility] Comment:Desirable HDL: great er than 40 mg/dL Note: This HDL assay may give artificially low results in patients with liver disease. 01/23/2025 11:3 9 AM EST 01/23/2025 2:04 PM EST Yadira MITCHELL LAB BLOOD ORDERABLES Final Resul t [facility] [address] [place] [address] [phone] documented in this encounter Visit Diagnoses Not on filedocumented in this encounter Additional Health Concerns Assessment Noted Time PHQ-9 Depression Total Score: 15 025 3:31 PM EDT documented as of this encounter Care Teams Sheet Metal Layout Worker Relationship Specialty Start Date End Date Yadira Chamberlain ANP [address] [place] [address] PCP - General Family Medicine 02/22/21 documented as of this encounter
--- OUTSIDE RECORDS SUMMARY | 2025-01-23 17:56 | XMS_ITS | Encounter Summary ---
Author Organization [facility] [employer] Address [address] [facility] [address] 7t [place] [address] Care Team Providers Care Fire Inspector Name Role Phone Yadira Chamberlain Primary Care Provider [phone] Encounter Details Date Type Department Care Team (Latest Contact Info) Description 01/21/2025 Travel Social History Tobacco Use Types Packs/Day Years [...] Description 03/25/2025 9:45 AM EST Office Visit [facility] MEDICINE [address] [place] [address] documented as of this encounter Visit Diagnoses Not on filedocumented in this encounter Additional Health Concerns Assessment Noted Time PHQ-9 Depression Total Score: 15 025 3:31 PM EDT documented as of this encounter Care Teams Fire Inspector Relationship Specialty Start Date End Date Yadira Chamberlain ANP [address] [place] [address] PCP - General Family Medicine 02/22/21 documented as of this encounter
--- OUTSIDE RECORDS SUMMARY | 2025-01-23 17:56 | XMS_ITS | Encounter Summary ---
Author Organization [employer] Address [address] [facility] [address] 7t [place] [address] Care Team Providers Care Admissions Recruiter Name Role Phone Yadira Chamberlain Primary Care Provider [phone] Encounter Details Date Type Department Care Team (Latest Contact Info) Description 01/23/2025 Travel Social History Tobacco Use Types Packs/Day [...] Description 03/25/2025 9:45 AM EST Office Visit [facility] MEDICINE [address] [place] [address] documented as of this encounter Visit Diagnoses Not on filedocumented in this encounter Additional Health Concerns Assessment Noted Time PHQ-9 Depression Total Score: 15 025 3:31 PM EDT documented as of this encounter Care Teams Admissions Recruiter Relationship Specialty Start Date End Date Yadira Chamberlain ANP [address] [place] [address] PCP - General Family Medicine 02/22/21 documented as of this encounter
--- OUTSIDE RECORDS SUMMARY | 2025-01-23 17:56 | XMS_ITS | Encounter Summary ---
Author Organization [employer] Address 75 [facility] 7t [place] [address] Care Team Providers Care Ten Pin Bowling Centre Manager Name Role Phone Yadira Chamberlain Primary Care Provider [phone] Reason for Visit * Reason Comments Med Refill Encounter Details Date Type Department Care Team ([facility] st Contact Info) Description 09/15/2023 Refill [facility] MEDICINE 230 [place], [place] [phone] Yadira Chamberlain ANP [address] [place], [place] [phone] Chronic bilateral low back pain without sciatica [...] Description 03/25/2025 9:45 AM EST Office Visit [facility] MEDICINE [address] [place] [address] documented as of this encounter Visit Diagnoses Diagnosis Chronic bilateral low back pain without sciatica documented in this encounter Additional Health Concerns Assessment Noted Time PHQ-9 Depression Total Score: 8 01/19/20 23 4:02 PM EST documented as of this encounter Care Teams Ten Pin [place] Manager Relationship Specialty Start Date End Date Yadira Chamberlain ANP [address] [place] [address] PCP - General Family Medicine 02/22/21 documented as of this encounter
--- OUTSIDE RECORDS SUMMARY | 2025-01-23 17:56 | XMS_ITS | Encounter Summary ---
Author Organization [employer] Address 75 [facility] 7t [place] [address] Care Team Providers Care Benefits Representative Name Role Phone Yadira Chamberlain Primary Care Provider [phone] Reason for Visit * Reason Comments Med Refill Encounter Details Date Type Department Care Team ([facility] st Contact Info) Description 01/22/2025 Refill [facility] [address] [place] [address] Yadira Chamberlain ANP [address] [place] [address] Insomnia, unspecified type Social History Tobacco Use Types Packs/Day Years [...] Description 03/25/2025 9:45 AM EST Office Visit [facility] MEDICINE [address] [place] [address] documented as of this encounter Visit Diagnoses Diagnosis Insomnia, unspecified type documented in this encounter Additional Health Concerns Assessment Noted Time PHQ-9 Depression Total Score: 15 025 3:31 PM EDT documented as of this encounter Care Teams Benefits Representative Relationship Specialty Start Date End Date Yadira Chamberlain ANP [address] [place] [address] PCP - General Family Medicine 02/22/21 documented as of this encounter
--- OUTSIDE RECORDS SUMMARY | 2025-01-23 17:57 | XMS_ITS | Encounter Summary ---
Author Organization [employer] Address 75 [facility] 7t [place] [address] Care Team Providers Care Ruling Machine Feeder Name Role Phone Yadira Chamberlain Primary Care Provider [phone] Reason for Visit * Reason Onset Date Comments Med Refill 12/30/2024 Encounter Details Date Type Department Care Team ([facility] st Contact Info) Description 12/30/2024 Telephone [facility] MEDICINE 230 [place], [place] [phone] Yadira Chamberlain ANP [address] [place], [place] [phone] Med Refill Social History Tobacco Use Types [...] encounter Miscellaneous Notes * Telephone Encounter - Mauro Soares - 12/30/2024 8:29 AM EST TC from pt requesting medication refill. Medications needing refill : traMADol (Ultram) 50 MG tablet To be sent to: [facility] documented in this encounter Plan of Treatment Upcoming Encounters Date Type Department Care Team (Late st Contact Info) Description 03/25/2025 9:45 AM EST Office Visit [facility] MEDICINE [address] [place] [address] documented as of this encounter Visit Diagnoses Not on filedocumented in this encounter Additional Health Concerns Assessment Noted Time PHQ-9 Depression Total Score: 15 025 3:31 PM EDT documented as of this encounter Care Teams Ruling Machine Feeder Relationship Specialty Start Date End Date Yadira Chamberlain ANP [address] [place] [address] PCP - General Family Medicine 02/22/21 documented as of this encounter
--- OUTSIDE RECORDS SUMMARY | 2025-01-23 17:57 | XMS_ITS | Encounter Summary ---
Author Organization [employer] Address 75 [facility] 7t [place] [address] Care Team Providers Care Wire Mesh Knitter Name Role Phone Yadira Chamberlain Primary Care Provider [phone] Reason for Visit * Reason Comments Med Refill Encounter Details Date Type Department Care Team ([facility] st Contact Info) Description 12/13/2024 Refill [facility] MEDICINE 230 [place], [place] [phone] Yadira Chamberlain ANP [address] [place] [address] Anxiety Social History Tobacco Use Types Packs/Day [...] encounter Miscellaneous Notes * Telephone Encounter - PAULA Vega - 12/17/2024 5:35 PM EST duplicate documented in this encounter Plan of Treatment Upcoming Encounters Date Type Department Care Team (Late st Contact Info) Description 03/25/2025 9:45 AM EST Office Visit [facility] MEDICINE [address] [place] [address] documented as of this encounter Visit Diagnoses Diagnosis Anxiety Anxiety state, unspecified documented in this encounter Additional Health Concerns Assessment Noted Time PHQ-9 Depression Total Score: 15 025 3:31 PM EDT documented as of this encounter Care Teams Wire Mesh Knitter Relationship Specialty Start Date End Date Yadira Chamberlain ANP [address] [place] [address] PCP - General Family Medicine 02/22/21 documented as of this encounter
--- OUTSIDE RECORDS SUMMARY | 2025-01-23 17:57 | XMS_ITS | Encounter Summary ---
Author Organization [employer] Address 75 [facility] 7t [place] [address] Care Team Providers Care Awning Frame Maker Name Role Phone Ydaira Chamberlain Primary Care Provider [phone] Reason for Visit * Reason Onset Date Comments Med Refill 12/16/2024 Encounter Details Date Type Department Care Team ([facility] st Contact Info) Description 12/16/2024 Telephone [facility] MEDICINE 230 [place], [place] [phone] Yadira Chamberlain ANP [address] [place], [place] [phone] Med Refill Social History Tobacco Use Types [...] encounter Miscellaneous Notes * Telephone Encounter - Catarino De La Cruz - 12/16/2024 9:29 AM EST TC from pt requesting medication refill. Medications needing refill : ALPRAZolam (Xanax) 1 MG tablet To be sent to: [facility] - [place], [place] - [address] [place] [address] documented in this encounter Plan of Treatment Upcoming Encounters Date Type Department Care Team ([facility] st Contact Info) Description 03/25/2025 9:45 AM EST Office Visit [facility] MEDICINE [address] [place] [address] documented as of this encounter Visit Diagnoses Not on filedocumented in this encounter Additional Health Concerns Assessment Noted Time PHQ-9 Depression Total Score: 15 025 3:31 PM EDT documented as of this encounter Care Teams Awning Frame Maker Relationship Specialty Start Date End Date Yadira Chamberlain ANP [address] [place] [address] PCP - General Family Medicine 02/22/21 documented as of this encounter
--- OUTSIDE RECORDS SUMMARY | 2025-01-23 17:58 | XMS_ITS | Encounter Summary ---
Author Organization [employer] Address 75 [facility] 7t [place] [address] Care Team Providers Care Livestock Trucker Name Role Phone Yadira Chamberlain PAULA Primary Care Provider [phone] Reason for Visit * Reason Comments Med Refill Encounter Details Date Type Department Care Team ([facility] st Contact Info) Description 10/29/2024 Refill [facility] [address] [place], [place] [phone] Mauricio Waller MD [address] [place] [address] Social History Tobacco Use Types Packs/Day Years Used Date Smoking Tobacco: Never Passive Smoke Exposure: Never Smokeless Tobacco: Never Alcohol Use Standard Drinks/Week Comments Never 0 (1 standard drink = 0.6 oz pur e alcohol) Depression Answer Date Recorded Patient Health Questionnaire-9 Score 5 10/24/2024 Patient Health Questionnaire-9 Score 5 10/24/2024 Last PHQ-9: Questionnaire Data Not on file 0 10/24/2024 Housing Stability Answer Date Recorded What is [...] Answer Date Recorded Patient Health Questionnaire-2 Score 4 10/24/2024 Internet Access Answer Date Recorded Internet Access Q1 Yes 08/05/2024 Internet Access Q2 Not on file 08/05/2024 Comments Unknown Sex and Gender Information Value [...] 03/25/2025 9:45 AM EST Office Visit [facility] MEDICINE [address] [place] [address] documented as of this encounter Visit Diagnoses Not on filedocumented in this encounter Additional Health Concerns Assessment Noted Time PHQ-9 Depression Total Score: 5 10/25/19 25 11:56 AM EDT documented as of this encounter Care Teams Livestock Trucker Relationship Specialty Start Date End Date Yadira Chamberlain ANP [address] [place] [address] PCP - General Family Medicine 02/22/21 documented as of this encounter
--- OUTSIDE RECORDS SUMMARY | 2025-01-23 17:58 | XMS_ITS | Encounter Summary ---
Author Organization [employer] Address 75 [facility] 7t [place] [address] Care Team Providers Care Fire And Safety Helper Name Role Phone Yadira Chamberlain ANP Primary Care Provider [phone] Reason for Visit * Reason Onset Date Comments Med Refill 07/15/2024 Encounter Details Date Type Department Care Team ([facility] st Contact Info) Description 07/15/2024 Telephone [facility] MEDICINE 230 [place], [place] [phone] Yadira Chamberlain ANP [address] [place], [place] [phone] Med Refill Social History Tobacco Use Types [...] Miscellaneous Notes * Telephone Encounter - Tami Abrasm - 07/15/2024 1:21 PM EDT TC from pt requesting medication refill. Medications needing refill : ALPRAZolam (Xanax) 1 MG tablet To be sent to: [facility] documented in this encounter Plan of Treatment Upcoming Encounters Date Type Department Care Team (Late st Contact Info) Description 03/25/2025 9:45 AM EST Office Visit [facility] MEDICINE [address] [place] [address] documented as of this encounter Visit Diagnoses Not on filedocumented in this encounter Additional Health Concerns Assessment Noted Time PHQ-9 Depression Total Score: 8 01/19/20 23 4:02 PM EST documented as of this encounter Care Teams Fire And Safety Helper Relationship Specialty Start Date End Date Yadira Chamberlain ANP [address] [place] [address] PCP - General Family Medicine 02/22/21 documented as of this encounter
--- OUTSIDE RECORDS SUMMARY | 2025-01-23 17:59 | XMS_ITS | Encounter Summary ---
Author Organization [employer] Address [address] [facility] [address] [place] [address] Care Team Providers Care Inspection And Testing Supervisor Name Role Phone Yadira Chamberlain ANP Primary Care Provider [phone] Reason for Visit * Reason Onset Date Comments Med Refill 05/15/2024 Encounter Details Date Type Department Care Team ([facility] st Contact Info) Description 05/15/2024 Telephone [facility] [address] [place], [place] [phone] Yadira Chamberlain ANP [address] [place], [place] [phone] Med Refill Social History Tobacco Use Types [...] 1 MG tablet To be sent to: [facility] - [place], [place] - [address] [place] [address] documented in this encounter Plan of Treatment Upcoming Encounters Date Type Department Care Team (Late st Contact Info) Description 03/25/2025 9:45 AM EST Office Visit [facility] [address] [place] [address] documented as of this encounter Visit Diagnoses Not on filedocumented in this encounter Additional Health Concerns Assessment Noted Time PHQ-9 Depression Total Score: 8 01/19/20 23 4:02 PM EST documented as of this encounter Care Teams Inspection And Testing Supervisor Relationship Specialty Start Date End Date Yadira Chamberlain ANP [address] [place] [address] PCP - General Family Medicine 02/22/21 documented as of this encounter
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
--- OUTSIDE RECORDS SUMMARY | 2025-01-23 17:59 | XMS_ITS | Encounter Summary ---
Author Organization [employer] Address 75 [facility] 7t [place] [address] Care Team Providers Care Pe Teacher Name Role Phone Yadira Chamberlain ANP Primary Care Provider [phone] Reason for Visit * Reason Onset Date Comments Med Refill 10/09/2024 Encounter Details Date Type Department Care Team ([facility] st Contact Info) Description 10/09/2024 Telephone [facility] [address] [place], [place] [phone] Yadira Chamberlain ANP 230 [place], [place] [phone] Med Refill Social History Tobacco Use Types [...] Recorded Patient Health Questionnaire-2 Score 2 01/18/2023 Internet Access Answer Date Recorded Internet Access [...] encounter Miscellaneous Notes * Telephone Encounter - Migueltio Hobbs - 10/09/2024 12:41 PM EDT TC from pt requesting medication refill. Medications needing refill: traMADol (Ultram) 50 MG tablet To be sent to: [facility] - [place], [place] - [address] [place] [address] documented in this encounter Plan of Treatment Upcoming Encounters Date Type Department Care Team (Late st Contact Info) Description 03/25/2025 9:45 AM EST Office Visit [facility] [address] [place] [address] documented as of this encounter Visit Diagnoses Not on filedocumented in this encounter Additional Health Concerns Assessment Noted Time PHQ-9 Depression Total Score: 8 01/19/20 23 4:02 PM EST documented as of this encounter Care Teams Pe Teacher Relationship Specialty Start Date End Date Yadira Chamberlain ANP 230 [place] [address] PCP - General Family Medicine 02/22/21 documented as of this encounter
--- OUTSIDE RECORDS SUMMARY | 2025-01-23 17:59 | XMS_ITS | Encounter Summary ---
Author Organization [employer] Address [address] [place] [address] 7t h Floor [place] [id number] Care Team Providers Care Sign Installer Name Role Phone Yadira Chamberlain ANP Primary Care Provider [phone] Reason for Visit * Reason Onset Date Comments Med Refill 02/10/2022 Encounter Details Date Type Department Care Team (Late Contact Info) Description 02/10/[address] [address] Yadira Chamberlain ANP [address] [place] [address] [phone] Chronic bilateral low back pain without sciatica [...] Description 03/25/2025 9:45 AM EST Office Visit [address] [address] documented as of this encounter Visit Diagnoses Diagnosis Chronic bilateral low back pain without sciatica documented in this encounter Care Teams Sign Installer Relationship Specialty Start Date End Date Yadira Chamberlain ANP [address] [place] [address] PCP - General Family Medicine 02/22/21 Gia Nino production line technician 11/29/22 02/27/23 documented as of this encounter
--- OUTSIDE RECORDS SUMMARY | 2025-01-23 18:00 | XMS_ITS | Encounter Summary ---
Author Organization [employer] Address 75 [facility] 7t [place] [address] Care Team Providers Care Engineering Aid Name Role Phone Yadira Chamberlain Primary Care Provider [phone] Reason for Visit * Reason Onset Date Comments Med Refill 03/12/2024 Encounter Details Date Type Department Care Team ([facility] st Contact Info) Description 03/12/[address] [facility] MEDICINE 230 [place], [place] [phone] Yadira Chamberlain ANP 230 [place], [place] [phone] Med Refill Social History Tobacco Use Types [...] 50 MG tablet To be sent to: [facility] documented in this encounter Plan of Treatment Upcoming Encounters Date Type Department Care Team (Late st Contact Info) Description 03/25/2025 9:45 AM EST Office Visit [facility] MED[facility]INE 230 [place] [address] documented as of this encounter Visit Diagnoses Not on filedocumented in this encounter Additional Health Concerns Assessment Noted Time PHQ-9 Depression Total Score: 8 01/19/20 23 4:02 PM EST documented as of this encounter Care Teams Engineering Aid Relationship Specialty Start Date End Date Yadira Chamberlain ANP 230 [place] [address] PCP - General Family Medicine 02/22/21 documented as of this encounter
--- OUTSIDE RECORDS SUMMARY | 2025-01-23 18:00 | XMS_ITS | Encounter Summary ---
Author Organization [employer] Address 75 [facility] 7t [place] [address] Care Team Providers Care Account Adjuster Name Role Phone Yadira Chamberlain ANP Primary Care Provider [phone] Reason for Visit * Reason Onset Date Comments Med Refill 06/13/2024 Encounter Details Date Type Department Care Team ([facility] st Contact Info) Description 06/13/2024 Telephone [facility] MEDICINE 230 [place], [place] [phone] Yadira Chamberlain ANP 230 [place], [place] [phone] Med Refill Social History Tobacco Use Types [...] 1 MG tablet To be sent to: [facility] documented in this encounter Plan of Treatment Upcoming Encounters Date Type Department Care Team (Late st Contact Info) Description 03/25/2025 9:45 AM EST Office Visit [facility] [address] [place] [address] documented as of this encounter Visit Diagnoses Not on filedocumented in this encounter Additional Health Concerns Assessment Noted Time PHQ-9 Depression Total Score: 8 01/19/20 23 4:02 PM EST documented as of this encounter Care Teams Account Adjuster Relationship Specialty Start Date End Date Yadira Chamberlain ANP 230 [place] [address] PCP - General Family Medicine 02/22/21 documented as of this encounter
--- OUTSIDE RECORDS SUMMARY | 2025-01-23 18:00 | XMS_ITS | Encounter Summary ---
Author Organization [employer] Address 75 [facility] 7t [place] [address] Care Team Providers Care Prosthodontist/Educator Name Role Phone Yadira Chamberlain Primary Care Provider [phone] Reason for Visit * Reason Onset Date Comments Med Refill 04/12/2024 Encounter Details Date Type Department Care Team ([facility] st Contact Info) Description 04/12/2024 Telephone [facility] [address] [place], [place] [phone] Yadira Chamberlain ANP 230 [place], [place] [phone] Med Refill Social History Tobacco Use Types [...] 1 MG tablet To be sent to: [facility] documented in this encounter Plan of Treatment Upcoming Encounters Date Type Department Care Team (Late st Contact Info) Description 03/25/2025 9:45 AM EST Office Visit [facility] [address] [place] [address] documented as of this encounter Visit Diagnoses Not on filedocumented in this encounter Additional Health Concerns Assessment Noted Time PHQ-9 Depression Total Score: 8 01/19/20 23 4:02 PM EST documented as of this encounter Care Teams Prosthodontist/Educator Relationship Specialty Start Date End Date Yadira Chamberlain ANP 230 [place] [address] PCP - General Family Medicine 02/22/21 documented as of this encounter
--- OUTSIDE RECORDS SUMMARY | 2025-01-23 18:00 | XMS_ITS | Encounter Summary ---
Author Organization [employer] Address 75 [facility] 7t [place] [address] Care Team Providers Care Back Joiner Name Role Phone Yadira Chamberlain Primary Care Provider [phone] Reason for Visit * Reason Comments Med Refill Encounter Details Date Type Department Care Team ([facility] st Contact Info) Description 01/25/2023 Refill [facility] 230 [place], [place] [phone] Yadira Chamberlain ANP 230 [place], [place] [phone] Chronic bilateral low back pain without sciatica [...] Description 03/25/2025 9:45 AM EST Office Visit [facility] [address] [place] [address] documented as of this encounter Visit Diagnoses Diagnosis Chronic bilateral low back pain without sciatica documented in this encounter Additional Health Concerns Assessment Noted Time PHQ-9 Depression Total Score: 8 01/19/20 23 4:02 PM EST documented as of this encounter Care Teams Back Joiner Relationship Specialty Start Date End Date Yadira Chamberlain ANP 230 [place] [address] PCP - General Family Medicine 02/22/21 Gia Nino medical staff assistant 11/29/22 02/27/23 documented as of this encounter
--- OUTSIDE RECORDS SUMMARY | 2025-01-23 18:00 | XMS_ITS | Encounter Summary ---
Author Organization [employer] Address 75 [facility] 7t [place] [address] Care Team Providers Care Farm Management Professor Name Role Phone Yadira Chamberlain ANP Primary Care Provider [phone] Reason for Visit * Reason Onset Date Comments Med Refill 10/09/2023 Encounter Details Date Type Department Care Team ([facility] st Contact Info) Description 10/09/2023 Telephone [facility] 230 [place], [place] [phone] Yadira Chamberlain ANP 230 [place], [place] [phone] Med Refill Social History Tobacco Use Types [...] 50 MG tablet To be sent to: [facility] documented in this encounter Plan of Treatment Upcoming Encounters Date Type Department Care Team (Late st Contact Info) Description 03/25/2025 9:45 AM EST Office Visit [facility] 230 [place] [address] documented as of this encounter Visit Diagnoses Not on filedocumented in this encounter Additional Health Concerns Assessment Noted Time PHQ-9 Depression Total Score: 8 01/19/20 23 4:02 PM EST documented as of this encounter Care Teams Farm Management Professor Relationship Specialty Start Date End Date Yadira Chamberlain ANP 230 [place] [address] PCP - General Family Medicine 02/22/21 documented as of this encounter
--- OUTSIDE RECORDS SUMMARY | 2025-01-23 18:00 | XMS_ITS | Encounter Summary ---
Author Organization [employer] Address 75 [facility] 7t [place] [address] Care Team Providers Care Capacitor Repairer Name Role Phone Yadira Chamberlain ANP Primary Care Provider [phone] Reason for Visit * Reason Onset Date Comments Med Refill 10/17/2023 Encounter Details Date Type Department Care Team ([facility] st Contact Info) Description 10/17/2023 Telephone [facility] MEDICINE 230 [place], [place] [phone] Yadira Chamberlain ANP 230 [place], [place] [phone] Med Refill Social History Tobacco Use Types [...] 1 MG tablet To be sent to: [facility] - [place], [place] - [address] [place] [address] documented in this encounter Plan of Treatment Upcoming Encounters Date Type Department Care Team (Late st Contact Info) Description 03/25/2025 9:45 AM EST Office Visit [facility] MEDICINE 230 [place] [address] documented as of this encounter Visit Diagnoses Not on filedocumented in this encounter Additional Health Concerns Assessment Noted Time PHQ-9 Depression Total Score: 8 01/19/20 23 4:02 PM EST documented as of this encounter Care Teams Capacitor Repairer Relationship Specialty Start Date End Date Yadira Chamberlain ANP 230 [place] [address] PCP - General Family Medicine 02/22/21 documented as of this encounter
--- OUTSIDE RECORDS SUMMARY | 2025-01-23 18:00 | XMS_ITS | Encounter Summary ---
Author Organization [employer] Address 75 [facility] 7t [place] [address] Care Team Providers Care Supervisor Steffen House Name Role Phone Yadira Chamberlain ANP Primary Care Provider [phone] Reason for Visit * Reason Onset Date Comments Med Refill 01/10/2024 Encounter Details Date Type Department Care Team ([facility] st Contact Info) Description 01/10/2024 Telephone [facility] 230 [place], [place] [phone] Yadira Chamberlain ANP [address] [place], [place] [phone] Med Refill Social History Tobacco Use Types [...] 50 MG tablet To be sent to: [facility] documented in this encounter Plan of Treatment Upcoming Encounters Date Type Department Care Team (Late st Contact Info) Description 03/25/2025 9:45 AM EST Office Visit [facility] 230 [place] [address] documented as of this encounter Visit Diagnoses Not on filedocumented in this encounter Additional Health Concerns Assessment Noted Time PHQ-9 Depression Total Score: 8 01/19/20 23 4:02 PM EST documented as of this encounter Care Teams Supervisor Steffen House Relationship Specialty Start Date End Date Yadira Chamberlain ANP [address] [place] [address] PCP - General Family Medicine 02/22/21 documented as of this encounter
--- OUTSIDE RECORDS SUMMARY | 2025-01-23 18:01 | XMS_ITS | Encounter Summary ---
Author Organization [employer] Address 75 [facility] 7t [place] [address] Care Team Providers Care Client Support Analyst Name Role Phone Yadira Chamberlain ANP Primary Care Provider [phone] Reason for Visit * Reason Onset Date Comments PA 09/19/2022 Encounter Details Date Type Department Care Team ([facility] st Contact Info) Description 09/19/2022 Telephone [facility] 230 [place] [address] Yadira Chamberlain ANP 230 [place] [address] PA Social History Tobacco Use Types Packs/Day [...] Description 03/25/2025 9:45 AM EST Office Visit [facility] 230 [place] [address] documented as of this encounter Visit Diagnoses Not on filedocumented in this encounter Additional Health Concerns Assessment Noted Time PHQ-9 Depression Total Score: 6 09/07/19 23 2:35 PM EDT documented as of this encounter Care Teams Client Support Analyst Relationship Specialty Start Date End Date Yadira Chamberlain ANP 230 [place] [address] PCP - General Family Medicine 02/22/21 Gia Nino cemetery keeper 11/29/22 02/27/23 documented as of this encounter
--- OUTSIDE RECORDS SUMMARY | 2025-01-23 18:01 | XMS_ITS | Encounter Summary ---
Author Organization [employer] Address 75 [facility] 7t [place] [address] Care Team Providers Care Telesales Agent Name Role Phone Yadira Chamberlain PAULA Primary Care Provider [phone] Encounter Details Date Type Department Care Team (Late st Contact Info) Description 11/26/2024 Results Follow-Up [facility] MEDICINE 230 [place] [address] Laura Zarco, RONA [address] [place] [address] POCT ALICJA-[id number] Urine Drug Screen Social History Tobacco Use Types Packs/Day Years [...] this encounter Functional Status * Over the past 2 weeks, how often have you been bothered by any of the following problems? Question Answer Date of Assessment Author Patient Health Questionnaire-2 Score 6 11/13 3:31 PM EDT Mally Garcia [place] * Little interest or pleasure in doing things Answer Date of Assessment Author Nearly every day 11/28/2024 3:31 PM EDT Mally Garcia [place] * Feeling down, depressed, or hopeless Answer Date of Assessment Author Nearly every day 11/28/2024 3:31 PM EDT Mally Garcia MA * Trouble falling or staying asleep, or sleeping too much Answer Date of Assessment Author Nearly every day 11/28/2024 3:31 PM EDT Mally Garcia MA * Feeling tired or having little energy Answer Date of Assessment Author Several days 11/28/2024 3:31 PM EDT Mally Garcia MA * Poor appetite or overeating Answer Date of Assessment Author Several days 11/28/2024 3:31 PM EDT Mally Garcia MA * Feeling bad about yourself - or that you are a failure or have let yourself or your family down Answer Date of Assessment Author Not at all 11/28/2024 3:31 PM EDT Mally Garcia MA * Trouble concentrating on things, such as reading the newspaper or watching television Answer Date of Assessment Author Nearly every day 11/28/2024 3:31 PM EDT Mally Garcia MA * Moving or speaking so slowly that other people could have noticed? Or the opposite - being so fidgety or restless that you have been moving around a lot more than usual. Answer Date of Assessment Author Several days 11/28/2024 3:31 PM EDT Mally Garcia MA * Thoughts that you would be better off or hurting yourself in some way Answer Date of Assessment Author Not at all 11/28/2024 3:31 PM EDT Mally Garcia MA * Patient Health Questionnaire-9 Score Answer Date of Assessment Author 15 11/28/2024 3:31 PM EDT Mally Garcia MA * Over the last 2 weeks, how often have you been bothered by any of the following problems? Question Answer Date of Assessment Author Feeling nervous, anxious, or on edge 1 11/13 9:55 AM EDT Isabel Becker RN Not being able to stop or co ntrol worrying 2 11/26/2024 9:55 AM Isabel Gillette RN Worrying too much about diff erent things 2 11/26/2024 9:55 AM Isabel Gillette RN Trouble relaxing 3 11/26/2024 9:55 AM EDT Isabel Herrera ae, RN Being so restless that it is hard to sit still 3 11/26/2024 9:55 AM Isabel Gillette RN Becoming easily annoyed or irritable 3 11/13 9:55 AM Isabel Gillette RN Feeling afraid as if somethi ng awful might happen 3 11/26/2024 9:55 AM Isabel Gillette RN MARY-7 Total Score 17 11/26/2024 9:55 AM Isabel Gillette RN documented as of this encounter Plan of Treatment Upcoming Encounters Date Type Department Care Team (Late st Contact Info) Description 03/25/2025 9:45 AM EST Office Visit [facility] MEDICINE 230 [place] [address] documented as of this encounter Visit Diagnoses Not on filedocumented in this encounter Additional Health Concerns Assessment Noted Time PHQ-9 Depression Total Score: 5 10/25/19 25 11:56 AM EDT documented as of this encounter Care Teams Telesales Agent Relationship Specialty Start Date End Date Yadira Chamberlain ANP 230 [place] [address] PCP - General Family Medicine 02/22/21 documented as of this encounter
--- OUTSIDE RECORDS SUMMARY | 2025-01-23 18:01 | XMS_ITS | Encounter Summary ---
Author Organization [employer] Address 75 [facility] 7t [place] [address] Care Team Providers Care Ict Teacher Name Role Phone Yadira Chamberlain Primary Care Provider [phone] Reason for Visit * Reason Onset Date Comments Med Refill 12/04/2023 Encounter Details Date Type Department Care Team ([facility] st Contact Info) Description 12/04/2023 Telephone [facility] MEDICINE 230 [place], [place] [phone] Yadira Chamberlain ANP 230 [place], [place] [phone] Med Refill Social History Tobacco Use Types [...] 12:43 PM EDT Medication was sent to [facility] on 03/31/23 #90 with 3 refills. * Telephone Encounter - Cherri Zuniga - 12/04/2023 12:37 PM EDT TC from pt requesting medication refill. Medications needing refill : mirtazapine (Remeron) 7.5 MG tablet To be sent to: [facility] - [place], [place] - [address] [place] [address] documented in this encounter Plan of Treatment Upcoming Encounters Date Type Department Care Team (Late st Contact Info) Description 03/25/2025 9:45 AM EST Office Visit [facility] MEDICINE 230 [place] [address] documented as of this encounter Visit Diagnoses Not on filedocumented in this encounter Additional Health Concerns Assessment Noted Time PHQ-9 Depression Total Score: 8 01/19/20 23 4:02 PM EST documented as of this encounter Care Teams Ict Teacher Relationship Specialty Start Date End Date Yadira Chamberlain ANP [address] [place] [address] PCP - General Family Medicine 02/22/21 documented as of this encounter
--- OUTSIDE RECORDS SUMMARY | 2025-01-23 18:01 | XMS_ITS | Encounter Summary ---
Author Organization [employer] Address 75 [facility] 7t [place] [address] Care Team Providers Care Healthcare Administration Internship Name Role Phone Yadira Chamberlain Primary Care Provider [phone] Reason for Visit * Reason Onset Date Comments Med Refill 12/04/2023 Encounter Details Date Type Department Care Team ([facility] st Contact Info) Description 12/04/2023 Telephone [facility] MEDICINE 230 [place], [place] [phone] Yadira Chamberlain ANP 230 [place], [place] [phone] Med Refill Social History Tobacco Use Types [...] 50 MG tablet To be sent to: [facility] - [place], [place] - [address] [place] [address] documented in this encounter Plan of Treatment Upcoming Encounters Date Type Department Care Team (Late st Contact Info) Description 03/25/2025 9:45 AM EST Office Visit [facility] MEDICINE [address] [place] [address] documented as of this encounter Visit Diagnoses Not on filedocumented in this encounter Additional Health Concerns Assessment Noted Time PHQ-9 Depression Total Score: 8 01/19/20 23 4:02 PM EST documented as of this encounter Care Teams Healthcare Administration Internship Relationship Specialty Start Date End Date Yadira Chamberlain ANP 230 [place] [address] PCP - General Family Medicine 02/22/21 documented as of this encounter
--- OUTSIDE RECORDS SUMMARY | 2025-01-23 18:02 | XMS_ITS | Encounter Summary ---
Author Organization [employer] Address 75 [facility] 7t [place] [address] Care Team Providers Care Technical Assistance Consultant Name Role Phone Yadira Chamberlain Primary Care Provider [phone] Reason for Visit * Reason Onset Date Comments Med Refill 12/02/2024 Encounter Details Date Type Department Care Team ([facility] st Contact Info) Description 12/02/2024 Telephone [facility] MED[facility]INE 230 [place], [place] [phone] Yadira Chamberlain ANP 230 [place], [place] [phone] Med Refill Social History Tobacco Use Types [...] * Telephone Encounter - Miguelito Hobbs - 12/02/2024 2:08 PM EDT TC from pt requesting medication refill. Medications needing refill: traMADol (Ultram) 50 MG tablet To be sent to: [facility] - [place], [place] - [address] [place] [address] documented in this encounter Plan of Treatment Upcoming Encounters Date Type Department Care Team (Late st Contact Info) Description 03/25/2025 9:45 AM EST Office Visit [facility] 230 [place] [address] documented as of this encounter Visit Diagnoses Not on filedocumented in this encounter Additional Health Concerns Assessment Noted Time PHQ-9 Depression Total Score: 15 025 3:31 PM EDT documented as of this encounter Care Teams Technical Assistance Consultant Relationship Specialty Start Date End Date Yadira Chamberlain ANP 230 [place] [address] PCP - General Family Medicine 02/22/21 documented as of this encounter
== END 2025-01-23 11:36 | disposition home or self-care (01) ==
LOC: HO.HHCL 11:35
PROVIDERS: PCP Nurse Practitioner Primary Care; Visit Provider Family Medicine
DX: R23.2 Flushing (principal); I10 Essential (primary) hypertension; R07.89 Other chest pain; Z13.21 Encounter for screening for nutritional disorder
CPT/HCPCS: 36415; 80048; 80061; 80076; 82306; 84439; 84443; 85027